=== PATIENT | female | born 1945 | race Caucasian/White ===

== ENCOUNTER 2021-03-21 13:19 | Inpatient (IN) | payer MEDICARE, OTHER, SELFPAY ==
[2021-03-21] VITALS (12 sets, daily range): BP systolic 121–143; BP diastolic 76–120; PULSE 68–147; RESP 12–18; TEMP 36.2–37.3; O2SAT 94–97
--- NOTE | ~2021-03-21 | CT_ITS ---
EXAMINATION: CTA brain carotid EXAM DATE: 03/21/2021 14:53 INDICATION: Left side weakness. TECHNIQUE: Spiral CTA of the carotid arteries was performed with intravenous injection 100 cc of Om nipaque 350. Axial, coronal, sagittal reformatted images reviewed. Additional reformatted images cre ated on dedicated 3-D workstation. NASCET comparable standard used to assess the degree of arterial stenosis. Spiral CT angiogram cerebral arteries performed with the same intravenous injection of con trast. Source images of the brain CTA transferred to dedicated workstation for 3-D rotational image c reation. Coronal, sagittal maximum intensity pixel images also reviewed. The dose-length product (D LP) for this examination was 1020.18 mGy-cm. The exposure was tailored according to patient size, a nd iterative reconstruction (ASIR) was used as additional dose reduction technique. Correlation is ma de to noncontrast head CT earlier same day. FINDINGS: Mild bilateral carotid bulb arterial sclerosis, bilateral carotid 0% stenosis. There is rig ht-sided posterior communicating artery dominant posterior cerebral artery. Mild bilateral carotid si phon arterial sclerosis without stenosis. There is no carotid or vertebral basilar arterial dissecti on or fibromuscular dysplasia. There are no cerebral artery aneurysms. There is symmetric cerebral ar last arborization. The sagittal, transverse and sigmoid sinuses enhance normally, no venous sinus thr ombosis. Internal cerebral veins also enhance normally. Incidental Findings: Bilateral cataract surgery. Sizable layering bilateral pleural effusions. IMPRESSION: 1. No acute carotid or intracranial findings. 2. Bilateral carotid bulb 0% stenosis. Reviewed, dictated and finalized at location B.
--- NOTE | ~2021-03-21 | CT_ITS ---
EXAMINATION: CT brain wo con DATE: 03/21/2021 14:00 INDICATION: Left-sided hemiparesis TECHNIQUE: Computed tomography (CT) of the head was performed without intravenous contrast. Sagittal and coronal reconstructions were performed. The mA was adjusted according to patient size. Iterative reconstruction technique was employed. The dose-length product was 605.33 mGy-cm. COMPARISON: head CT dated 06/21/2009 FINDINGS: No acute intracranial hemorrhage, acute infarction or abnormal extra axial fluid collection. There is minimal scattered white matter hypoattenuation consistent which is within normal limits for age, lik mary sequela of chronic small vessel ischemic disease. Ventricles are normal and symmetric. No mass/m ass effect. Changes of bilateral intraocular lens replacement. The orbits and mastoid air cells are n ormal. Mild mucoperiosteal thickening the right maxillary sinus. Intracranial calcified cerebral athe rosclerosis is noted. IMPRESSION: 1. Normal aging brain. No acute intracranial process. Reviewed, dictated and finalized at location A.
--- NOTE | ~2021-03-21 | XR_ITS ---
EXAMINATION: XR chest 1V portable EXAM DATE: 03/21/2021 14:08 INDICATION: Left hemiparesis. TECHNIQUE: Portable AP frontal chest x-ray was obtained. Comparison is made to prior examination from 11/06/2013. FINDINGS: Moderate left, small to moderate pleural effusions, adjacent multisegmental atelectasis. Th e cardiac silhouette is enlarged. There is indistinct reticulation with a bibasal predominance which may indicate pulmonary edema. Pneumonia also possible. No pneumothorax. The bones are osteopenic. Th ere are bony degenerative changes. There is aortic arteriosclerosis. Bilateral shoulder replacements. Vertebral plasties. IMPRESSION: 1. Moderate left and small to moderate right pleural effusions, adjacent atelectasis. 2. Findings consistent with CHF exacerbation. 3. Pneumonia not excludable. Reviewed, dictated and finalized at location B. IMPRESSION: 1. Moderate left and small to moderate right pleural effusions, adjacent atele ctasis. 2. Findings consistent with CHF exacerbation. 3. Pneumonia not excludable.
--- NOTE | ~2021-03-21 | CT_ITS ---
EXAMINATION: CT brain wo con INDICATION: Altered mental status COMPARISON: 03/21/2021 TECHNIQUE: Standard unenhanced head CT. The dose-length product (DLP) was 681.00 mGy-cm. The mA was a djusted according to patient size. Iterative reconstruction technique was employed. FINDINGS: There is no acute intraparenchymal hemorrhage. No evidence of mass lesion. No evidence of a cute infarction. There is mild periventricular and subcortical hypodensity probably related to small vessel ischemic disease. There is mild prominence of the sulci and ventricles related to cerebral atr ophy. Intracranial calcified cerebral atherosclerosis is noted. There are no extra-axial collections. There is no mass effect or midline shift. Changes in the globes are likely from ocular lens surgery. The visualized sinuses and mastoid air cells are well aerated. IMPRESSION: 1. No acute intracranial abnormality. 2. Age related findings. Reviewed, dictated and finalized at location A.
--- NOTE | ~2021-03-21 | US_ITS ---
EXAMINATION: US venous doppler [facility] DATE: 03/22/2021 11:30 INDICATION: Bilateral lower limb edema TECHNIQUE: Galvan scale images without and with compression and Doppler images of the bilateral lower e xtremity veins were obtained. COMPARISON: None FINDINGS: The right common femoral vein, profunda femoral vein, femoral vein, popliteal vein, peroneal trunk, p osterior tibial veins, and greater saphenous vein are patent. The left common femoral vein, profunda femoral vein, femoral vein, popliteal vein, peroneal trunk, po sterior tibial veins, and greater saphenous vein are patent. IMPRESSION: 1. Patent bilateral lower extremity veins. No evidence of deep venous thrombosis. Reviewed, dictated and finalized at location A. IMPRESSION: 1. Patent bilateral lower extremity veins. No evidence of deep venous thrombosi s.
--- NOTE | ~2021-03-21 | US_ITS ---
EXAMINATION: US renal BI DATE: 03/22/2021 11:30 INDICATION: Renal failure TECHNIQUE: Multiple grayscale and Doppler ultrasound images of the kidneys were obtained. COMPARISON: None. FINDINGS: The right kidney measures 9.2 x 4.7 x 4.2 cm and contains a 2.1 cm cyst. The left kidney me asures 9.5 x 4.8 x 4.5 cm. The kidneys demonstrate increased parenchymal echogenicity. There is no hy dronephrosis. The bladder is normal. IMPRESSION: 1. Medical renal disease. Reviewed, dictated and finalized at location A. IMPRESSION: 1. Medical renal disease.
--- NOTE | 2021-03-21 13:47 | ECG_ITS ---
Measurements Intervals [place] Rate: 138 P: UT: 0 QRS: -25 QRSD: 142 T: -7 QT: 325 QTc: 494 Interpretive Statements ATRIAL FIBRILLATION WITH RAPID VENTRICULAR RESPONSE RIGHT BUNDLE BRANCH BLOCK ABNORMAL ECG Electronically Signed On 03-21-2021 14:06:40 CDT by Devon Paiz D.O.
--- NOTE | 2021-03-21 14:00 | ED.WEAKNESS ---
HPI - Weakness General Chief complaint: Suspected CVA Stated complaint: fall - weakness Time Seen by Provider: 03/21/21 13:33 Source: patient Mode of arrival: EMS Limitations: no limitations History of Present Illness HPI Narrative: This is a 75 year old female with history of atrial fibrillation, hypertension who presents for evaluation of weakness. Patient states she has noticed bilateral leg swelling for 2 days and shortness of breath for 2 days. She also reports left side weakness that started around 1030-11 am. 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 Shortly afterwards she noticed weakness. She called EMS because prior to arrival she was so weak she slid out of her car. She denies history of CVA or similar weakness in the past. She denies headache, blurred vision or facial droop. She does report that she has not been taking most of her medication for several weeks. Her gas main fitter started on her on a blood thinner 3 weeks ago. She denies chest pain, cough or fever. MD Complaint: focal weakness Related Data Home Medications Medication Instructions Recorded Confirmed acetazolamide 250 mg DAILY 03/21/21 03/21/21 amlodipine 10 mg PO DAILY 03/21/21 03/21/21 aspirin 81 mg PO DAILY 03/21/21 03/21/21 cholecalciferol (vitamin D3) 125 mcg PO DAILY 03/21/21 03/21/21 desvenlafaxine succinate 100 mg PO DAILY 03/21/21 03/21/21 docusate sodium 100 mg PO PRN 03/21/21 03/21/21 duloxetine 60 mg PO DAILY 03/21/21 03/21/21 ergocalciferol (vitamin D2) 50,000 unit PO WEEKLY 03/21/21 03/21/21 fenofibrate nanocrystallized 145 mg PO EVERY OTHER DAY 03/21/21 03/21/21 folic acid-vit B6-vit B12 1 tablet PO DAILY 03/21/21 03/21/21 hydralazine 37.5 mg PO Q8H 03/21/21 03/21/21 hydrocodone-acetaminophen [[place]] 1 tablet PO Q8H PRN 03/21/21 03/21/21 tfncf-wu-8-ruw-qbf-dufxeli-ast 1 cap PO DAILY 03/21/21 03/21/21 [MegaRed [place]-3 [employer]] levothyroxine 25 mcg PO DAILY 03/21/21 03/21/21 lisinopril 40 mg BID 03/21/21 03/21/21 methotrexate sodium See Rx Instructions .ROUTE .COMPLEX 03/21/21 03/21/21 nortriptyline 10 mg PO TID 03/21/21 03/21/21 potassium chloride 10 meq PO DAILY 03/21/21 03/21/21 pregabalin 200 mg PO BID 03/21/21 03/21/21 rivaroxaban [Xarelto] 20 mg PO DAILY 03/21/21 03/21/21 triamterene-hydrochlorothiazid 1 cap PO DAILY 03/21/21 03/21/21 Allergies Allergy/AdvReac Type Severity Reaction Status Date / Time adhesive tape Allergy Mild Unknown Verified 03/21/21 14:59 topiramate Allergy Mild Unknown Verified 03/21/21 14:59 adhesive Allergy Unknown SKIN Verified 03/21/21 14:59 SLOUGHS OFF morphine Allergy Unknown Unknown Verified 03/21/21 14:59 scopolamine Allergy Unknown SKIN Verified 03/21/21 14:59 SLOUGH OFF FROM PATCH TAPES-- Allergy Severe SKIN Uncoded 03/21/21 14:59 SLOUGHING OFF TRANSDERMAL SCOPALOMINE Allergy Severe SKIN Uncoded 03/21/21 14:59 SLOUGH OFF FROM PATCH Review of Systems Review of Systems: All systems reviewed & are unremarkable except as noted in HPI and below PMFSH Past Medical History Medical History (Updated 03/21/21 @ 23:43 by Anastasiia Gardiner MD) Depression Dyslipidemia Hypertension Insulin dependent diabetes mellitus On insulin pump. Macular degeneration Paroxysmal atrial fibrillation Rheumatoid arthritis Surgical History Surgical History (Updated 03/21/21 @ 21:00 by Mera Richardson PA-C) History of appendectomy History of arthroscopy of both shoulders History of bilateral cataract extraction History of colonoscopy with polypectomy History of hysterectomy History of laparoscopic adjustable gastric banding History of orthopedic surgery Pins in feet and elbow. History of repair of hiatal hernia Family History Family History Grandparent Family history of malignant neoplasm of ovary Other Carcinoma of colon Cerebrovascular accident Diabetes frederic
[2021-03-21] MEDS: dilTIAZem HCl INJ 25 MG/5 ML VIAL 10 MG IV PUSH (14:10)
[2021-03-21 14:15] LABS: Glucose Point of Care 173 mg/dl (65-105)
[2021-03-21 14:27] LABS: Basophils Percent Auto 0.4 % (0.2-1.2); Eosinophils Absolute Auto 0.1 K/mm3 (0-0.3); Eosinophils Percent Auto 0.9 % (0-4.4); Hematocrit 35.1 % (37.0-47.0); Hemoglobin 10.9 g/dL (12.0-15.0); Immature Granulocyte Absolute 0.06 K/mm3 (0.00-0.031); Immature Granulocyte Percent A 0.6 % (0-0.5); Lymphocytes Absolute Auto 0.82 K/mm3 (0.9-3.2); Lymphocytes Percent Auto 7.6 % (18.3-44.2); Mean Corpuscular HGB Conc 31.1 g/dl (32-36); Mean Corpuscular Volume 87.1 fl (80-100); Mean Platelet Volume 9.9 fl (7.4-10.4); Monocytes Absolute Auto 0.8 K/mm3 (0.1-0.6); Neutrophils Percent Auto 83.5 % (45.5-73.1); Platelet Count Result 289 k/mm3 (150-375); Red Blood Count 4.03 M/mm3 (4.2-5.4); Red Cell Distribution Width 17.4 % (11.5-14.5); White Blood Count 10.8 K/mm3 (4.5-10.0)
[2021-03-21 14:32] LABS: Anion Gap 7 mmol/L (8-16); Blood Urea Nitrogen 41 mg/dL (7-17); Calcium 8.1 mg/dL (8.4-10.2); Carbon Dioxide 23 mmol/L (22-30); Chloride 100 mmol/L (98-107); Estimated CRCL calculation 38 ml/min; Estimated Glomerular Filt Rate 49; Glucose 172 mg/dL (65-110); Potassium 4.7 mmol/L (3.4-5.0); Sodium 130 mmol/L (137-145)
[2021-03-21 14:43] LABS: INR 1.1; Prothrombin Time 13.6 Seconds (11.1-14.7)
[2021-03-21 14:44] LABS: Partial Thromboplastin Time 29.6 SECONDS (22.3-36.8)
[2021-03-21 15:00] LABS: NT Pro B Type Natriuretic Pept 7350 pg/mL (5-100); Troponin I 0.036 ng/mL (0.000-0.034)
[2021-03-21] MEDS: FUROSEMIDE INJ 40 MG/4 ML VIAL IV PUSH (15:27)
[2021-03-21] MEDS: ASPIRIN 81 MG CHEWABLE TABLET 324 MG PO (16:45)
--- NOTE | 2021-03-21 17:28 | PC.NURSE ---
Increased Cardizem rate to [address] Gardiner
--- NOTE | 2021-03-21 18:38 | ADMGEN ---
This patient, Regine Mittal, was admitted to IMU Room 207-01 on 03-21-21 at 1810. Patient/family oriented to hospital policies and general routines including ID bracelet, bed and alarms, visiting hours, pain management, procedures, bathroom and other care routines, personal items, smoking policy, room service/diet, and visiting hours. Information on how to activate the Rapid Response Team has been discussed. Patient/Family are encouraged to report perceived risks to care and to ask questions if they do not understand what they are told or what they should do.
--- NOTE | 2021-03-21 20:00 | PM.IMHP ---
H&P: HPI History of Present Illness Date/Time: 03/21/21 20:00 Chief Complaint: Left-sided weakness. Narrative: This is a 75-year-old female with paroxysmal atrial fibrillation, insulin-dependent diabetes, hypertension, dyslipidemia, hypothyroidism, and rheumatoid arthritis who presented to the emergency department earlier today via EMS from [facility] for evaluation of left-sided weakness. She was in her usual state of health when she got up this morning and spent some time making a meatloaf before going to bean picker her birthday cake. All was well at that time however when she drove to [employer] to do some more shopping she was having difficulties pushing the brake pedal with her left foot, and felt weak. She then attempted to get out of the car but was unable to do so as she felt that she could not move her left leg as it was extremely weak. A woman in the [employer] [facility] tried to help her but unfortunately that just caused her to slide down onto the ground on her buttocks and she was unable to get up. She also had some mild weakness in her left arm. Brain CT showed no evidence of acute stroke and since arrival to the emergency department her symptoms have improved quite a bit. EKG showed atrial fibrillation with ventricular response for which she is currently on a Cardizem drip with some improvement in her rate. Interestingly she has no symptoms of the atrial fibrillation at this time, specifically denying feelings of racing heart, fluttering, or shortness of breath. On exam she was markedly edematous in the lower legs which she just noticed over the last couple of days. Currently she has no complaints and specifically denies syncope, near syncope, orthopnea, PND, chest pain, pleuritic pain, shortness of breath Review of Systems Review of Systems: 12 systems were reviewed with pertinent positives and negatives as per HPI. No fever, chills, or sweats. No recent cold or flu symptoms. No sick contacts. She denies cough and shortness of breath. Known exposure to those positive for COVID-19. Appetite has been okay. No nausea, vomiting, or diarrhea. No dysuria. No pleuritic pain. No history of venous thromboembolism. Her diabetes is well controlled on insulin pump but she does have issues with lows on occasion. No blurry vision, polydipsia, polyuria. Except as document, all other systems were reviewed and are negative. [facility] Past Medical History Medical History (Updated 03/21/21 @ 21:06 by Mera Richardson PA-C) Depression Dyslipidemia Hypertension Insulin dependent diabetes mellitus On insulin pump. Macular degeneration Paroxysmal atrial fibrillation Rheumatoid arthritis Surgical History Surgical History (Updated 03/21/21 @ 21:00 by Mera Richardson PA-C) History of appendectomy History of arthroscopy of both shoulders History of bilateral cataract extraction History of colonoscopy with polypectomy History of hysterectomy History of laparoscopic adjustable gastric banding History of orthopedic surgery Pins in feet and elbow. History of repair of hiatal hernia Family History Family History Grandparent Family history of malignant neoplasm of ovary Other Carcinoma of colon Cerebrovascular accident Diabetes mellitus Family history of arthritis Family history of gout Hypertension Social History Social History (Updated 03/21/21 @ 21:03 by Mera Richardson PA-C) Social History: The patient lives in [place] with her stepdaughter and son-in-law. Retired from doing secretarial work at numerous medical offices. She smoked a pack of cigarettes a day for 8 years and quit decades ago. She drinks perhaps 1 alcoholic regimen. No illicit substance use. She designates her stepdaughter, Snadhya Melara, as her surrogate decision-maker and she wishes to be a full code. Meds Home Medications and Allergies Home Medications Medication Instructio
[2021-03-21 20:23] LABS: Glucose Point of Care 92 mg/dl (65-105)
[2021-03-21 20:40] LABS: Glucose Point of Care 244 mg/dl (65-105)
[2021-03-21] MEDS: NORTRIPTYLINE HCL 10 MG CAPSULE 30 MG PO (22:55)
[2021-03-22] VITALS (19 sets, daily range): BP systolic 122–152; BP diastolic 75–104; PULSE 75–140; RESP 15–20; TEMP 35.8–36.4; O2SAT 94–100
[2021-03-22 05:05] LABS: Basophils Percent Auto 0.3 % (0.2-1.2); Eosinophils Absolute Auto 0.1 K/mm3 (0-0.3); Eosinophils Percent Auto 1.1 % (0-4.4); Hematocrit 33.4 % (37.0-47.0); Hemoglobin 10.4 g/dL (12.0-15.0); Immature Granulocyte Absolute 0.05 K/mm3 (0.00-0.031); Immature Granulocyte Percent A 0.5 % (0-0.5); Lymphocytes Absolute Auto 0.76 K/mm3 (0.9-3.2); Lymphocytes Percent Auto 7.9 % (18.3-44.2); Mean Corpuscular HGB Conc 31.1 g/dl (32-36); Mean Corpuscular Hemoglobin 26.8 pg (26-34); Mean Corpuscular Volume 86.1 fl (80-100); Mean Platelet Volume 10.4 fl (7.4-10.4); Monocytes Absolute Auto 0.6 K/mm3 (0.1-0.6); Monocytes Percent Auto 6.6 % (2.6-8.5); Neutrophils Percent Auto 83.6 % (45.5-73.1); Platelet Count Result 250 k/mm3 (150-375); Red Blood Count 3.88 M/mm3 (4.2-5.4); Red Cell Distribution Width 17.3 % (11.5-14.5); White Blood Count 9.6 K/mm3 (4.5-10.0)
[2021-03-22 05:14] LABS: Hemoglobin A1C 7.4 % (<5.7)
[2021-03-22 05:23] LABS: Alanine Aminotransferase 26 U/L (4-35); Albumin Level 3.3 g/dL (3.5-5.1); Alkaline Phosphatase 101 U/L (38-126); Anion Gap 7 mmol/L (8-16); Aspartate Amino Transferase 27 U/L (14-36); Bilirubin,Total 0.7 mg/dL (0.2-1.3); Blood Urea Nitrogen 40 mg/dL (7-17); Carbon Dioxide 23 mmol/L (22-30); Chloride 101 mmol/L (98-107); Cholesterol 97 mg/dL (0-200); Estimated CRCL calculation 41 ml/min; Estimated Glomerular Filt Rate 54; Glucose 125 mg/dL (65-110); HDL Direct 48 mg/dL; Magnesium 2.3 mg/dL (1.6-2.3); Potassium 4.4 mmol/L (3.4-5.0); Sodium 131 mmol/L (137-145); Triglycerides 68 mg/dL (<150)
[2021-03-22 05:34] LABS: LDL Cholesterol Direct 35 mg/dL
--- NOTE | 2021-03-22 06:00 | ECHO_ITS ---
Patient Info Name: Regine Mittal Age: 76 years : 1945 Gender: Female Ht: 62 in Wt: 166 lbs BSA: 1.84 m2 HR: 97 bpm BP: 152 / 100 mmHg Heart Rhythm: Atrial Fibrillation Technical Quality: Good Exam Date: 03/22/2021 8:30 AM Exam Location: [facility] Patient Status: Inpatient Admit Date: 03/21/2021 Staff Ordering Physician: Anastasiia Gardiner MD Curing Oven Attendant: Carol Joel [facility] Attending Provider: Jorje Webber MD Referring Physician: Abdifatah POTTS; Exam Type: CA echo doppler color flow Study Info Complete two-dimensional, color flow and Doppler transthoracic echocardiogram is performed. Summary 1. Complete two-dimensional, color flow and Doppler transthoracic echocardiogram is performed. 2. There is moderate concentric increased left ventricular wall thickness. 3. Left ventricular systolic function is normal, estimated at 50-55%. 4. Left atrial chamber dimension is moderately enlarged. 5. There is mild aortic valve sclerosis. 6. There is mild mitral valve regurgitation. 7. There is mild tricuspid valve regurgitation. Left Ventricle Left ventricular chamber dimension is normal. Left ventricular systolic function is normal, estimated at 50-55%. There is moderate concentric increased left ventricular wall thickness. The left ventricular diastolic function is indeterminate. Right Ventricle Right ventricular chamber dimension is normal. Left Atria Left atrial chamber dimension is moderately enlarged. Right Atria Right atrial chamber dimension is mildly enlarged. Aortic Valve The aortic valve is trileaflet. There is mild aortic valve sclerosis. Pulmonic Valve The pulmonic valve is not well visualized. Mitral Valve The mitral valve has normal leaflets. There is mild mitral valve regurgitation. Tricuspid Valve The tricuspid valve leaflets are normal. There is mild tricuspid valve regurgitation. Pericardium/Pleural The pericardium appears normal. Aorta The aortic root size at the sinus of Valsalva is normal. Left Ventricular Outflow Tract Name Value Normal LVOT 2D LVOT Diameter 2.1 cm LVOT Doppler LVOT Peak Gradient 5 mmHg LVOT Mean Gradient 3 mmHg LVOT VTI 20 cm LVOT VTI/AV VTI Ratio 0.3 LVOT Stroke Volume 68 ml LVOT CO 5.0 l/min LVOT CI 2.7 l/min/m2 Pulmonic Valve Name Value Normal PV Doppler PV Peak Gradient 4 mmHg Tricuspid Valve Name Value Normal TV Regurgitation Doppler
[2021-03-22] MEDS: LEVOTHYROXINE SODIUM 25 MCG TABLET PO (06:30)
[2021-03-22 07:58] LABS: Free T4 Free Thyroxine Reflex 1.29 ng/dL (0.78-2.19)
[2021-03-22] MEDS: hydrALAZINE 12.5 MG TABLET PO ×2 (08:18→17:22)
[2021-03-22] MEDS: hydrALAZINE HCL 25 MG TABLET PO ×2 (08:18→17:22)
[2021-03-22] MEDS: NORTRIPTYLINE HCL 10 MG CAPSULE 20 MG PO ×2 (08:20→12:48)
[2021-03-22] MEDS: CHOLECALCIFEROL 1,000 UNITS TABLET 5000 UNITS PO (08:21)
[2021-03-22] MEDS: ASPIRIN 81 MG ENTERIC TABLET PO (08:21)
[2021-03-22] MEDS: amLODIPine BESYLATE 5 MG TABLET 10 MG PO (08:21)
[2021-03-22] MEDS: CYANOCOBALAMIN 500 MCG TABLET 2500 MCG PO (08:22)
[2021-03-22] MEDS: FENOFIBRATE NANOCRYSTALLIZED 145 MG TABLET PO (08:22)
[2021-03-22] MEDS: DULoxetine HCL 60 MG CAPSULE.DR PO (08:22)
[2021-03-22] MEDS: FUROSEMIDE INJ 40 MG/4 ML VIAL IV PUSH ×2 (08:23→21:16)
[2021-03-22] MEDS: PYRIDOXINE HCL 25 MG TABLET PO (08:23)
[2021-03-22] MEDS: FOLIC ACID 1 MG TABLET PO (08:23)
[2021-03-22] MEDS: PREGABALIN (*CRX) 50 MG CAPSULE 200 MG PO ×2 (08:27→17:22)
[2021-03-22 09:28] LABS: Glucose Point of Care 135 mg/dl (65-105)
[2021-03-22 10:00] LABS: Total Triiodothyronine (T3) 0.68 NG/ML (0.97-1.69)
--- NOTE | 2021-03-22 10:25 | PM.CNCAR ---
Assessment and Plan Additional Plan This is a 76-year-old lady with a history of paroxysmal atrial fibrillation who unfortunately discontinued all of her medications recently and has presented with a CVA presumably a cardioembolic events and she is atrial fibrillation. Diltiazem intravenously is seen doing a reasonable job of providing heart rate control. With a fresh CVA I would put a hold on the anticoagulation at this time especially since she was not anticoagulated because of medical noncompliance coming into the hospital. I will transition her to some oral diltiazem InStent wean off the IV over the course of today and this afternoon. If she is hemodynamically stable in rate controlled on oral diltiazem and be discharged on the diltiazem and follow up with her client development manager as an outpatient. Echocardiogram has been done this morning and has yet to be interpreted. It is unfortunate that she appears to have suffered a cardioembolic event which likely could have been prevented if she was compliant with her medication Dann Cassidy MD [facility] History of Present Illness History of Present Illness Consult date/time: 03/22/21 10:25 Consult reason: atrial fibrillation Reason For Visit: acute CVA/CHF/atrial fibrillation with RVR Narrative: This is a 76-year-old lady of seeing at the request of the hospitalist today to assist with the management of atrial fibrillation. The patient has not been seen by me in the past she apparently has established relationship with a client development manager in [place] who does not practice at [facility]. She was brought here because of the onset of left arm and left leg weakness that occurred while she was apparently shopping at a local [employer]. She was apparently in the parking lot and noticed symptoms while she was trying to operate her car. She was brought to the emergency room and felt to have had a CVA. Apparently she has a history of paroxysmal atrial fibrillation and for this was taking Xarelto 20 mg daily. Medical regimen did not include any rate control or antiarrhythmic medications. She states she does not have atrial fibrillation recurrences very often. Her client development manager has told her that she has a mildly leaking mitral valve. Patient states that she got sick of taking her medications and stopped all of it a couple of weeks ago. Her left hemiplegia is much better than it was yesterday she was unable to move her left leg at all she is now moving it abducting at and extending it and moving her toes to command she states that is a bit clumsy but much better than it was yesterday. She was placed of course on intravenous diltiazem as her heart rate was 130-140 in the emergency room it is better at this time. She has no other complaints and otherwise feels relatively well this morning. Despite the fact that she stopped her medication which presumably is the reason for her CVA her Xarelto is reordered at this time on her active orders on the chart. Neurology consult I believe has been requested but is pending. Review of Systems Constitutional: Constitutional: Reports fatigue and Reports lethargy Eyes: Eyes: Reports no additional eye complaints ENT: Reports system reviewed and no additional complaints, except as documented Cardiovascular: Cardiovascular: Reports no additional cardiovascular complaints Respiratory: Respiratory: Reports no additional respiratory complaints Gastrointestinal: Gastrointestinal: Reports no additional gastrointestinal complaints Musculoskeletal: Musculoskeletal: Reports arthralgias Integumentary/Breasts: Skin/Breast: Reports system reviewed and no additional complaints, except as docu Neurologic: Reports as per HPI Endocrine: Endocrine: Reports no additional endocrine complaints Hematologic/Lymphatic: Hematologic/Lymphatic: Reports no additional hematologic/lymphatic complaints Allergic/Immunologic: Allergic/Immunologic: Reports no additional allergic/immunologic compla
[2021-03-22 13:04] LABS: Glucose Point of Care 194 mg/dl (65-105)
--- NOTE | 2021-03-22 14:18 | WPDNEURCNPN ---
Assessment and Plan Additional Plan considering the cardiac she is a likely candidate to have TIA versus stroke MRI will be obtained and further adjustment will be made accordingly Consult date: 03/24/21 Time Seen: 14:18 HPI: Regine Mittal is a 76 year old female admitted to the hospital for the complaints of left-sided weakness in addition to the ongoing history of 1. Paroxysmal atrial fibrillation 2. Insulin-dependent diabetes mellitus 3. Hypertension 4. Hypothyroidism 5. Rheumatoid arthritis. She presented to the emergency department via EMS from [place] for evaluation of left-sided weakness. Reportedly she was in her usual state of health when she got up in the morning and spent some time making a meat low before going to pickling grader her birthday cake all was well at that time however when she drove to [place] to do some more shopping she was having difficulties pushing the brake pedal with the left foot and felt weak when she attempted to get out of the car but was unable to do so as she felt that she could not move her left leg he was extremely weak a woman in the [employer] try to help her but unfortunately that resulted in her sliding down onto the ground on her buttocks then she was unable to get up she was noted to have mild weakness in her left arm initial evaluation included a CT scan of the brain which was negative for bleed EKG documented atrial fibrillation with ventricular response for which she was started on Cardizem drip and which resulted in improvement in her heart rate was noted to be markedly edematous in the lower extremities she mention over the last couple of days, she does have ongoing history of depression, macular degeneration in addition to all the problems as mentioned above , is retired from secretarial work she smokes a pack of cigarette per day for 8 years but quit decades ago no illicit substance use and medications included rivaroxaban 20 mg daily along with duloxetine 60 mg daily and nortriptyline 10 mg 3 times a day and Lyrica 200 mg twice a day Review of Systems Review of Systems: All systems reviewed & are unremarkable except as noted in HPI and below PMFSH Past Medical History Medical History Depression Dyslipidemia Hypertension Insulin dependent diabetes mellitus On insulin pump. Macular degeneration Paroxysmal atrial fibrillation Rheumatoid arthritis Surgical History Surgical History History of appendectomy History of arthroscopy of both shoulders History of bilateral cataract extraction History of colonoscopy with polypectomy History of hysterectomy History of laparoscopic adjustable gastric banding History of orthopedic surgery Pins in feet and elbow. History of repair of hiatal hernia Family History Family History Grandparent Family history of malignant neoplasm of ovary Other Carcinoma of colon Cerebrovascular accident Diabetes mellitus Family history of arthritis Family history of gout Hypertension Social History Social History Social History: The patient lives in [place] with her stepdaughter and son-in-law. Retired from doing secretarial work at numerous medical offices. She smoked a pack of cigarettes a day for 8 years and quit decades ago. She drinks perhaps 1 alcoholic regimen. No illicit substance use. She designates her stepdaughter, Sandhya Melara, as her surrogate decision-maker and she wishes to be a full code. Meds Home Medications and Allergies Home Medications Medication Instructions Recorded Confirmed Type acetazolamide 250 mg DAILY 03/21/21 03/21/21 History amlodipine 10 mg PO DAILY 03/21/21 03/21/21 History aspirin 81 mg PO DAILY 03/21/21 03/21/21 History cholecalciferol (vitamin D3) 125 mcg PO DAILY 03/21/21 03/21/21 History desdallin
[2021-03-22 17:06] LABS: Glucose Point of Care 187 mg/dl (65-105)
--- NOTE | 2021-03-22 17:07 | PM.IMPN ---
Progress Note: A&P Assessment and Plan (1) Atrial fibrillation with rapid ventricular response: Code(s): I48.91 - Unspecified atrial fibrillation Status: Acute Assessment and Plan: Patient is unaware of her atrial fibrillation. She has been started on a Cardizem drip witha good control of her rate. Continue rivaroxaban which was recently started by her industrial refrigeration mechanic Dr. Martinez. (2) Left-sided weakness: Code(s): R53.1 - Weakness Status: Acute Assessment and Plan: Left lower extremity weakness. Concerns for TIA versus CVA given atrial fibrillation. CTA of the head neck showed 0% stenosis of the carotid bulbs. Brain MRI is scheduled. Continue baby aspirin. Check lipids in a.m. (3) Hypertension: Code(s): I10 - Essential (primary) hypertension Status: Chronic Assessment and Plan: Blood pressures were reviewed and they have been reasonable with isolated diastolic elevation. Continue antihypertensives and monitor closely for now. (4) Dyslipidemia: Code(s): E78.5 - Hyperlipidemia, unspecified Status: Acute Assessment and Plan: Continue fenofibrate. LDL at goal. (5) Insulin dependent diabetes mellitus: Status: Acute Assessment and Plan: Patient may use her insulin pump. Check hemoglobin A1c. Initiate sliding scale insulin, Accu-Cheks, and hypoglycemic protocol. Accuchecks have been in the 92-244 range, no reported hypoglycemia. (6) Renal failure: Code(s): N19 - Unspecified kidney failure Status: Acute Assessment and Plan: Resolving acute non oliguric kidney injury. BUN and creatinine are improving toward her baseline. There is likely an element of cardiorenal syndrome. Renal ultrasound suggest medical renal disease. MOnitor BUN and creatinine. (7) Heart failure: Code(s): I50.9 - Heart failure, unspecified Status: Acute Assessment and Plan: Patient has findings suggestive of congestive heart failure with pulmonary effusions, elevated BNP, and lower extremity edema. May very well be high output failure from atrial fibrillation/rapid ventricular response. Continue cautious diuresis with close monitoring of volume status and renal function. Subjective Date/time seen: 03/22/21 17:07 This is a 75-year-old female with paroxysmal atrial fibrillation, insulin-dependent diabetes, hypertension, dyslipidemia, hypothyroidism, and rheumatoid arthritis who presented to the emergency department earlier today via EMS from [facility] parking lot for evaluation of left-sided weakness. . She also had some mild weakness in her left arm. Brain CT showed no evidence of acute stroke and since arrival to the emergency department her symptoms have improved quite a bit. EKG showed atrial fibrillation with ventricular response for which she was placed on a Cardizem drip with some improvement in her rate. Review of Systems Review of Systems: All systems reviewed & are unremarkable except as noted in HPI and below Constitutional: Constitutional: Reports no additional constitutional complaints and Reports weakness Cardiovascular: Cardiovascular: Reports no additional cardiovascular complaints and Denies chest pain Respiratory: Respiratory: Reports no additional respiratory complaints and Denies dyspnea Gastrointestinal: Gastrointestinal: Reports no additional gastrointestinal complaints, Denies abdominal pain, Denies diarrhea and Denies vomiting Genitourinary: Genitourinary: Reports no additional female genitourinary complaints Integumentary/Breasts: Skin/Breast: Reports system reviewed and no additional complaints, except as docu Neurologic: Comments: Patient reports persistent left lower extremity weakness. Psychiatric: Psychiatric: Reports no additional psychiatric complaints, Denies anxiety and Denies depression Exam Narrative: General: Well-developed female sitting up in bed no distress. Weigh
[2021-03-22 20:53] LABS: Glucose Point of Care 200 mg/dl (65-105)
--- NOTE | 2021-03-22 21:00 | PC.NURSE ---
2100- Patient difficult to arouse. Asked patient if she would manage the beeping on her insulin pump. The patient would wake up, say yes, then fall back asleep. The patient was informed if she wouldn't manage the pump it would need to be removed. Blood sugar 200, vitals signs obtained. MD Ennis called. Notified of symptoms. Orders to remove insulin pump and put patient on novolog sliding scale with meals. Labs also would be obtained on patient.
[2021-03-22 21:26] LABS: Alveolar/Arterial O2 Gradient 38.4 mmHg; Base Excess ABG 1.4 mEq/l (+/-2.0); Carboxyhemoglobin 0.1 % THb (0-2.0); Fractional Inspired Oxygen 21 %; Methemoglobin ABG 0.3 %THb (0-1.5); Oxygen Content ABG 13.7 %vol (16.0-22.0); Oxygen Saturation ABG 94.7 % (95.0-100.0); Oxyhemoglobin 91.8 % THb (90.0-100.0); PCO2 ABG 35.8 mmHg (35.0-45.0); PO2 ABG 68.5 mmHg (80.0-100.0); PO2 FiO2 Ratio Arterial Blood 3.26 %; Reduced Hemoglobin 7.8 %THb (0-5.0); Site Drawn LEFT RADIAL; Total Hemoglobin 10.6 g/dL (12.0-18.0); pH ABG 7.462 (7.350-7.450)
[2021-03-22 21:27] LABS: Device ROOM AIR; Modified Allen's Test Pass
[2021-03-22 21:45] LABS: Hematocrit 31.9 % (37.0-47.0); Hemoglobin 10.2 g/dL (12.0-15.0); Mean Corpuscular Hemoglobin 27.1 pg (26-34); Mean Corpuscular Volume 84.8 fl (80-100); Mean Platelet Volume 9.6 fl (7.4-10.4); Platelet Count Result 260 k/mm3 (150-375); Red Blood Count 3.76 M/mm3 (4.2-5.4); Red Cell Distribution Width 17.2 % (11.5-14.5); White Blood Count 9.5 K/mm3 (4.5-10.0)
[2021-03-22 21:56] LABS: Ammonia < 9 umol/L (9-30)
[2021-03-22 21:57] LABS: Anion Gap 6 mmol/L (8-16); Blood Urea Nitrogen 35 mg/dL (7-17); Calcium 8.1 mg/dL (8.4-10.2); Carbon Dioxide 25 mmol/L (22-30); Chloride 97 mmol/L (98-107); Estimated CRCL calculation 38 ml/min; Estimated Glomerular Filt Rate 48; Glucose 182 mg/dL (65-110); Phosphorus 5.1 mg/dL (2.5-4.5); Potassium 4.3 mmol/L (3.4-5.0); Sodium 128 mmol/L (137-145)
[2021-03-22 23:16] LABS: Glucose Point of Care 225 mg/dl (65-105)
--- NOTE | 2021-03-22 23:37 | PCRCNOTE ---
apnea link ordered for 03/22 was cancelled. nurse was concerned about pt's altered mental status.
[2021-03-23] VITALS (16 sets, daily range): BP systolic 102–154; BP diastolic 62–106; PULSE 62–127; RESP 18–20; TEMP 36.1–36.9; O2SAT 91–97
[2021-03-23] MEDS: LEVOTHYROXINE SODIUM 25 MCG TABLET PO (06:01)
[2021-03-23] MEDS: CYANOCOBALAMIN 500 MCG TABLET 2500 MCG PO (08:28)
[2021-03-23] MEDS: NORTRIPTYLINE HCL 10 MG CAPSULE 20 MG PO ×2 (08:28→13:45)
[2021-03-23] MEDS: hydrALAZINE 12.5 MG TABLET PO ×2 (08:29→17:16)
[2021-03-23] MEDS: PYRIDOXINE HCL 25 MG TABLET PO (08:29)
[2021-03-23] MEDS: hydrALAZINE HCL 25 MG TABLET PO ×2 (08:29→17:16)
[2021-03-23] MEDS: ASPIRIN 81 MG ENTERIC TABLET PO (08:29)
[2021-03-23] MEDS: amLODIPine BESYLATE 5 MG TABLET 10 MG PO (08:29)
[2021-03-23] MEDS: FOLIC ACID 1 MG TABLET PO (08:30)
[2021-03-23] MEDS: CHOLECALCIFEROL 1,000 UNITS TABLET 5000 UNITS PO (08:30)
[2021-03-23] MEDS: DULoxetine HCL 60 MG CAPSULE.DR PO (08:30)
[2021-03-23] MEDS: FUROSEMIDE INJ 40 MG/4 ML VIAL IV PUSH ×2 (08:31→21:28)
[2021-03-23] MEDS: PREGABALIN (*CRX) 50 MG CAPSULE 200 MG PO ×2 (08:34→17:17)
[2021-03-23] MEDS: FENOFIBRATE,MICRONIZED 48 MG TABLET PO (08:44)
[2021-03-23] MEDS: INSULIN ASPART (*BKC) 100 UNITS/ML SUB-Q ×3 (08:47→17:11)
[2021-03-23 09:44] LABS: Glucose Point of Care 337 mg/dl (65-105)
--- NOTE | 2021-03-23 09:54 | PM.PNCARD ---
Progress Note: A&P Additional Plan 76-year-old lady with: Chronic atrial fibrillation providing heart rate control with diltiazem. I will advance the dosage to 360 mg daily. I will also stop her amlodipine so she is not on 2 calcium channel blockers simultaneously. Neurology consult note was reviewed. Plans to do an MRI cannot be carried out because she has a stimulator device of some sort in place that is for urinary incontinence and is not MRI compatible. Will defer decision regarding resumption of anticoagulation to Neurology consult in. At this time I discontinued her Xarelto because she was not taking it prior to admission and we would wish to avoid hemorrhagic transformation of her CVA Dann Cassidy MD [facility] Subjective Date/time seen: Date of service: 03/23/21 09:54 Interval history: Follow-up visit in this 76-year-old woman with: Chronic atrial fibrillation unfortunately with apparent cardioembolic stroke because of noncompliance with medication. Patient discontinued all of her medication including her anticoagulation several weeks ago. She is asymptomatic this morning. I have her on oral diltiazem heart rate at times is in the low 1 100s at times up to about 135. Exam Const: General: comfortable and no acute distress HENMT: Mouth: Yes moist mucous membranes Eyes: Sclera: sclerae normal Pupils: Equal, round and reactive pupils present Neck: Neck: supple and no JVD Resp: Effort & Inspection: normal respiratory effort Auscultation: clear to auscultation bilaterally Cardio: Rhythm: abnormal rhythm irregularly irregular Other: Holosystolic apical murmur audible GI: GI Palp: Yes Soft to palpation Auscultation: normal bowel sounds Neuro: Cognition (Neuro): normal cognition Extrem: General: normal to inspection Objective Data Vital Signs Vital Signs: Vital Signs - 24 hr 03/22/21 10:00 03/22/21 12:00 03/22/21 13:20 Temperature 35.9 C L Pulse Rate 108 H 112 H 140 H Respiratory Rate 20 Blood Pressure 123/86 Pulse Oximetry 96 03/22/21 14:00 03/22/21 16:00 03/22/21 17:14 Temperature 35.8 C L Pulse Rate 96 80 88 Respiratory Rate 20 Blood Pressure 127/96 H Pulse Oximetry 99 03/22/21 18:00 03/22/21 20:00 03/22/21 22:00 Temperature 36.1 C L Pulse Rate 75 97 113 H Respiratory Rate 16 Blood Pressure 122/90 Pulse Oximetry 98 03/22/21 22:39 03/22/21 23:06 03/22/21 23:32 Temperature 36.4 C Pulse Rate 83 109 H Respiratory Rate 20 16 Blood Pressure 133/75 Pulse Oximetry 94 96 100 03/23/21 00:00 03/23/21 02:00 03/23/21 04:00 Temperature 36.1 C L Pulse Rate 103 H 90 108 H Respiratory Rate Blood Pressure 154/85 H Pulse Oximetry 97 03/23/21 06:00 03/23/21 08:00 Temperature 36.4 C L Pulse Rate 123 H 107 H Respiratory Rate 18 Blood Pressure 130/91 H Pulse Oximetry 97 Intake/Output Intake/Output: Intake & Output 03/20/21 03/21/21 03/22/21 03/23/21 23:59 23:59 23:59 23:59 Intake Total 1440 600 Output Total 400 1950 2500 Balance -400 510 -1900 Meds/Results Medications: Active Medications Generic Name Dose Route Start Last Admin Trade Name Freq PRN Reason Stop Dose Admin Hydrocodone Bitart/Acetaminophen 1 tab 03/21/21 21:27 Hydrocodone/Acetaminophen (*Crx) 10-325 Mg Tablet PO Q8H PRN Pain Rated 4-6 Aspirin 81 mg 03/22/21 09:00 03/23/21 08:29 Aspirin 81 Mg Enteric Tablet PO 81 mg QAM TERESA Administration Cyanocobalamin 2,500 mcg 03/22/21 09:00 03/23/21 08:28 Cyanocobalamin 500 Mcg Tablet PO 04/21/21 08:59 2,500 mcg DAILY TERESA Administration Dextrose 12.5 gm 03/21/21 21:24 Dextrose 50% 25 Gm/50 Ml Syringe IV PUSH PRN PRN Hypoglycemia Protocol Diltiazem HCl 360 mg 03/24/21 09:00 Diltiazem Hcl Cd 180 Mg Cap.Er.24h PO QAM TERESA Docusate Sodium 100 mg 03/21/21 21:51 Docusate Sodium 100 Mg Capsule PO DAILY PRN Constipation Du
--- NOTE | 2021-03-23 12:00 | PM.IMPN ---
Progress Note: A&P Assessment and Plan (1) Hyponatremia syndrome: Code(s): E87.1 - Hypo-osmolality and hyponatremia Status: Acute Assessment and Plan: Hyponatremia has been present since admission. Likely side effect of thiazide diuretic and SSRI. There may be an element of ADH responsiveness due to appropriate ADH release in the setting of afib with RVR. TSH and cortisol within normal limits. Serum Na improving to 127 today. Continue water restriction 1 L per day, salt tablets. We will avoid thiazides as an outpatient. Recheck serum Na tomorrow. (2) CHF (congestive heart failure): Code(s): I50.9 - Heart failure, unspecified Status: Acute Assessment and Plan: Acute on chronic diastolic heart failure with preserved ejection fraction 50-55%. currently on IV lasix. She is diuresing well. No congestive symptoms. (3) Acute CVA (cerebrovascular accident): Code(s): I63.9 - Cerebral infarction, unspecified Status: Acute (4) Left-sided weakness: Code(s): R53.1 - Weakness Status: Acute Assessment and Plan: Improving with daily exercise. Likely secondary to acute CVA in the setting of thromboembolic event due to atrial fibrillation in a patient non compliant with anticoagulation regimen. Head MRI is contraindicated. Repeat CT brain is unrevealing. Resume rivaroxaban today after discussion with neurology (5) Hypertension: Code(s): I10 - Essential (primary) hypertension Status: Chronic Assessment and Plan: Blood pressures were reviewed and they have been reasonable with isolated diastolic elevation. Continue antihypertensives and monitor closely for now. Continue metoprolol for rate control. due to mild elevation of creatinine, home DUNIA and diuretics have been on hold. (6) Insulin dependent diabetes mellitus: Status: Acute Assessment and Plan: Patient has an insulin pump. follow up with conservation educator for possible dysfunction. She has been experiencing hyperglycemia episodes, most recent above 400 on 03/26/2021. Patient on insulin sliding scale. Blood sugar is better this morning at 193. Continue monitoring. (7) Atrial fibrillation with rapid ventricular response: Code(s): I48.91 - Unspecified atrial fibrillation Status: Acute Assessment and Plan: rate controlled with cardizem and metoprolol Subjective Date/time seen: 03/27/2021 09:45 Interval history: S: Patient was examined at the bedside. She reports jerky movements of her hands. Review of Systems Review of Systems: All systems reviewed & are unremarkable except as noted in HPI and below Constitutional: Constitutional: Reports no additional constitutional complaints, Reports fatigue and Reports weakness Cardiovascular: Cardiovascular: Reports no additional cardiovascular complaints, Denies chest pain and Denies dyspnea Respiratory: Respiratory: Reports no additional respiratory complaints and Denies dyspnea Gastrointestinal: Gastrointestinal: Reports no additional gastrointestinal complaints, Denies abdominal pain, Denies diarrhea and Denies vomiting Genitourinary: Genitourinary: Reports no additional female genitourinary complaints Musculoskeletal: Musculoskeletal: Denies numbness Integumentary/Breasts: Skin/Breast: Reports system reviewed and no additional complaints, except as docu Neurologic: Denies Abnormal speech present, Denies confusion, Denies numbness and Reports weakness Psychiatric: Psychiatric: Reports no additional psychiatric complaints, Denies anxiety, Denies confusion and Denies depression Endocrine: Endocrine: Reports fatigue Exam Narrative: General: Well-developed female sitting up in bed no distress. Weight: 78.85= kg. BMI: 31 HEENT: Wearing corrective lenses. Sclerae anicteric. Oral mucosa moist. Oropharynx clear. Neck: Supple. No carotid bruits. No JVD Respiratory: Diminished lung sounds at the bases otherwise clear to aus
[2021-03-23 13:52] LABS: Glucose Point of Care 443 mg/dl (65-105)
--- NOTE | 2021-03-23 15:15 | PM.IMPN ---
Progress Note: A&P Assessment and Plan (1) Atrial fibrillation with rapid ventricular response: Code(s): I48.91 - Unspecified atrial fibrillation Status: Acute Assessment and Plan: Patient heart rate was as fast was 130s. cardizem increased to 37.5 mg PO BID. (2) Left-sided weakness: Code(s): R53.1 - Weakness Status: Acute Assessment and Plan: Improving with daily exercise. Likely secondary to acute CVA in the setting of thromboembolic event due to atrial fibrillation in a patient non compliant with anticoagulation regimen. Head MRI is contraindicated. Repeat CT brain is unrevealing. Resume rivaroxaban when cleared with neurology-with 2 negative scans should be ok, without risk. (3) Hypertension: Code(s): I10 - Essential (primary) hypertension Status: Chronic Assessment and Plan: Blood pressures were reviewed and they have been reasonable with isolated diastolic elevation. Continue antihypertensives and monitor closely for now. Stopped amlodipine per cardiology. (4) Dyslipidemia: Code(s): E78.5 - Hyperlipidemia, unspecified Status: Acute Assessment and Plan: Continue fenofibrate. LDL at goal. (5) Insulin dependent diabetes mellitus: Status: Acute Assessment and Plan: Patient on her insulin pump. Check hemoglobin A1c. Initiate sliding scale insulin, Accu-Cheks, and hypoglycemic protocol. Accuchecks have been over the 400 range today. We are consulting certified diabetes educator. We gave correction dose insulin 5 units. (6) Renal failure: Code(s): N19 - Unspecified kidney failure Status: Acute Assessment and Plan: Resolving acute non oliguric kidney injury. BUN and creatinine are improving toward her baseline. There is likely an element of cardiorenal syndrome. Renal ultrasound suggest medical renal disease. MOnitor BUN and creatinine. (7) Heart failure: Code(s): I50.9 - Heart failure, unspecified Status: Acute Assessment and Plan: Patient has findings suggestive of congestive heart failure with pulmonary effusions, elevated BNP, and lower extremity edema. May very well be high output failure from atrial fibrillation/rapid ventricular response. Continue cautious diuresis with close monitoring of volume status and renal function. Subjective Date/time seen: 03/23/21 15:15 This is a 75-year-old female with paroxysmal atrial fibrillation, insulin-dependent diabetes, hypertension, dyslipidemia, hypothyroidism, and rheumatoid arthritis who presented to the emergency department on 03/21/2021 via EMS from [facility] parking lot for evaluation of left-sided weakness. She also had some mild weakness in her left arm. Brain CT showed no evidence of acute stroke and since arrival to the emergency department her symptoms have improved quite a bit. EKG showed atrial fibrillation with ventricular response for which she was placed on a Cardizem drip with some improvement in her heart rate. She waas evaluated by cardiology and cardizem oral dose was uptitrated. She was scheduled for a MRI which is contraindicated due to her bladder pacemaker. A repeat brain CT was unremarkable. PAtient now working with PT and has noticed some improvement of her left sided weakness. Review of Systems Review of Systems: All systems reviewed & are unremarkable except as noted in HPI and below Constitutional: Constitutional: Reports no additional constitutional complaints and Reports weakness Cardiovascular: Cardiovascular: Reports no additional cardiovascular complaints, Denies chest pain and Denies dyspnea Respiratory: Respiratory: Reports no additional respiratory complaints and Denies dyspnea Gastrointestinal: Gastrointestinal: Reports no additional gastrointestinal complaints, Denies abdominal pain, Denies diarrhea and Denies vomiting Genitourinary: Genitourinary: Reports no additional female genitourinary complaints Integumentary/B
[2021-03-23 16:47] LABS: Glucose Point of Care 340 mg/dl (65-105)
[2021-03-23 19:49] LABS: Glucose Point of Care 265 mg/dl (65-105)
[2021-03-23] MEDS: NORTRIPTYLINE HCL 10 MG CAPSULE 30 MG PO (21:28)
--- NOTE | 2021-03-23 22:55 | PCRCNOTE ---
Apnea link started, pt room air.
[2021-03-24] VITALS (16 sets, daily range): BP systolic 89–122; BP diastolic 40–82; PULSE 70–130; RESP 18–22; TEMP 36–37.2; O2SAT 96–100
[2021-03-24 06:02] LABS: Basophils Percent Auto 0.2 % (0.2-1.2); Eosinophils Absolute Auto 0.2 K/mm3 (0-0.3); Eosinophils Percent Auto 1.3 % (0-4.4); Hematocrit 36.5 % (37.0-47.0); Hemoglobin 11.5 g/dL (12.0-15.0); Immature Granulocyte Absolute 0.06 K/mm3 (0.00-0.031); Immature Granulocyte Percent A 0.5 % (0-0.5); Lymphocytes Absolute Auto 1.08 K/mm3 (0.9-3.2); Lymphocytes Percent Auto 9.1 % (18.3-44.2); Mean Corpuscular HGB Conc 31.5 g/dl (32-36); Mean Corpuscular Hemoglobin 26.2 pg (26-34); Mean Corpuscular Volume 83.1 fl (80-100); Mean Platelet Volume 9.4 fl (7.4-10.4); Monocytes Absolute Auto 0.8 K/mm3 (0.1-0.6); Monocytes Percent Auto 6.4 % (2.6-8.5); Neutrophils Absolute Auto 9.8 K/mm3 (1.3-6.7); Neutrophils Percent Auto 82.5 % (45.5-73.1); Platelet Count Result 324 k/mm3 (150-375); Red Blood Count 4.39 M/mm3 (4.2-5.4); White Blood Count 11.8 K/mm3 (4.5-10.0)
[2021-03-24 06:14] LABS: Anion Gap 8 mmol/L (8-16); Blood Urea Nitrogen 43 mg/dL (7-17); Calcium 8.5 mg/dL (8.4-10.2); Carbon Dioxide 28 mmol/L (22-30); Chloride 90 mmol/L (98-107); Estimated CRCL calculation 33 ml/min; Estimated Glomerular Filt Rate 40; Glucose 61 mg/dL (65-110); Potassium 4.1 mmol/L (3.4-5.0); Sodium 126 mmol/L (137-145)
[2021-03-24] MEDS: LEVOTHYROXINE SODIUM 25 MCG TABLET PO (06:21)
--- NOTE | 2021-03-24 06:28 | PC.NURSE ---
Upon entering room, patient states I'm getting low blood sugar symptoms. Blood glucose checked, resulted at 59. Explained hypoglycemic protocol and use of glucose gel - patient refused gel. Patient then refused 4oz apple juice. Provided regular white soda, césar crackers and peanut butter per patient request.
[2021-03-24 06:31] LABS: Glucose Point of Care 59 mg/dl (65-105)
[2021-03-24 06:57] LABS: Glucose Point of Care 80 mg/dl (65-105)
--- NOTE | 2021-03-24 07:24 | P.CDI_ITS ---
CDI Query Clarification Request -CHF has been documented -BNP 7350, CXR impression: findings consistent with CHF exacerbation -Lasix 40mg IV q12 hrs ordered -Echo summary: EF 50-55%, left ventricular diastolic function is indeterminate Please further clarify type and acuity of CHF: * Systolic *Acute * Diastolic * Chronic * Both systolic and diastolic *Acute on Chronic * Unable to determine * Unable to determine <Carol Arceo RN - Last Filed: 03/24/21 07:29> Clarified Diagnosis (1) CHF (congestive heart failure): Code(s): I50.9 - Heart failure, unspecified <Carol Arceo RN - Last Filed: 03/24/21 07:29> Status: Acute <Carol Arceo RN - Last Filed: 03/24/21 07:29> Assessment and Plan: Acute on chronic diastolic heart failure with preserved ejection fraction 50-55%. <Yin Luz MD - Last Filed: 03/26/21 12:38>
[2021-03-24] MEDS: PREGABALIN (*CRX) 50 MG CAPSULE 200 MG PO ×2 (08:45→17:28)
[2021-03-24] MEDS: METHOTREXATE 2.5 MG TAB (*CHEMO) 12.5 MG PO (08:45)
[2021-03-24] MEDS: FENOFIBRATE NANOCRYSTALLIZED 145 MG TABLET PO (08:46)
[2021-03-24] MEDS: hydrALAZINE 12.5 MG TABLET PO ×2 (08:46→17:29)
[2021-03-24] MEDS: ASPIRIN 81 MG ENTERIC TABLET PO (08:46)
[2021-03-24] MEDS: CYANOCOBALAMIN 500 MCG TABLET 2500 MCG PO (08:46)
[2021-03-24] MEDS: PYRIDOXINE HCL 25 MG TABLET PO (08:46)
[2021-03-24] MEDS: dilTIAZem HCL CD 180 MG CAP.ER.24H 360 MG PO (08:46)
[2021-03-24] MEDS: CHOLECALCIFEROL 1,000 UNITS TABLET 5000 UNITS PO (08:46)
[2021-03-24] MEDS: DULoxetine HCL 60 MG CAPSULE.DR PO (08:46)
[2021-03-24] MEDS: FOLIC ACID 1 MG TABLET PO (08:47)
[2021-03-24] MEDS: FUROSEMIDE INJ 40 MG/4 ML VIAL IV PUSH (08:47)
[2021-03-24] MEDS: NORTRIPTYLINE HCL 10 MG CAPSULE 20 MG PO ×2 (08:47→12:51)
[2021-03-24] MEDS: hydrALAZINE HCL 25 MG TABLET PO ×2 (08:47→17:29)
[2021-03-24 09:20] LABS: Glucose Point of Care 116 mg/dl (65-105)
--- NOTE | 2021-03-24 10:00 | PM.IMPN ---
Progress Note: A&P Assessment and Plan (1) Atrial fibrillation with rapid ventricular response: Code(s): I48.91 - Unspecified atrial fibrillation Status: Acute Assessment and Plan: Patient heart rate was as fast was 130s. Continue cardizem 360 mg PO daily. Started carvedilol 3.125 mg PO BID.. (2) Left-sided weakness: Code(s): R53.1 - Weakness Status: Acute Assessment and Plan: Improving with daily exercise. Likely secondary to acute CVA in the setting of thromboembolic event due to atrial fibrillation in a patient non compliant with anticoagulation regimen. Head MRI is contraindicated. Repeat CT brain is unrevealing. Resume rivaroxaban when cleared on the day after discharge. (3) Hypertension: Code(s): I10 - Essential (primary) hypertension Status: Chronic Assessment and Plan: Blood pressures were reviewed and they have been reasonable with isolated diastolic elevation. Continue antihypertensives and monitor closely for now. Stopped amlodipine per cardiology. started carvedilol for rate control. due to mild elevation of creatinine, home DUNIA and diuretics on hold. (4) Dyslipidemia: Code(s): E78.5 - Hyperlipidemia, unspecified Status: Acute Assessment and Plan: Continue fenofibrate. LDL at goal. (5) Insulin dependent diabetes mellitus: Status: Acute Assessment and Plan: Patient on her insulin pump. Check hemoglobin A1c. Initiate sliding scale insulin, Accu-Cheks, and hypoglycemic protocol. Hpoglycemia was corrected this morning. (6) Renal failure: Code(s): N19 - Unspecified kidney failure Status: Acute Assessment and Plan: Resolving acute non oliguric kidney injury. BUN and creatinine are improving toward her baseline. There is likely an element of cardiorenal syndrome. Renal ultrasound suggest medical renal disease. MOnitor BUN and creatinine. Hold DUNIA and diuretic for now. (7) Heart failure: Code(s): I50.9 - Heart failure, unspecified Status: Acute Assessment and Plan: Patient has findings suggestive of congestive heart failure with pulmonary effusions, elevated BNP, and lower extremity edema. May very well be high output failure from atrial fibrillation/rapid ventricular response. Continue cautious diuresis with close monitoring of volume status and renal function. (8) Hyponatremia syndrome: Code(s): E87.1 - Hypo-osmolality and hyponatremia Status: Acute Assessment and Plan: has been present since damission. May be side effect of thiazide diuretic. Obtain Subjective Date/time seen: 03/24/21 10:00 This is a 75-year-old female with paroxysmal atrial fibrillation, insulin-dependent diabetes, hypertension, dyslipidemia, hypothyroidism, and rheumatoid arthritis who presented to the emergency department on 03/21/2021 with left-sided weakness. Brain CT showed no evidence of acute stroke and since arrival to the emergency department her symptoms have improved quite a bit. EKG showed atrial fibrillation with ventricular response for which she was placed on a Cardizem drip with some improvement in her heart rate. She was evaluated by cardiology and cardizem oral dose was uptitrated for 240 to 360 . She was scheduled for a MRI which is contraindicated due to her bladder pacemaker. A repeat brain CT was unremarkable. PAtient now working with PT and has noticed some improvement of her left sided weakness. Resting heart rate inthe 120-130 at the time of encounter; added low dose betablocker. Review of Systems Review of Systems: All systems reviewed & are unremarkable except as noted in HPI and below Constitutional: Constitutional: Reports no additional constitutional complaints and Reports weakness Cardiovascular: Cardiovascular: Reports no additional cardiovascular complaints, Denies chest pain and Denies dyspnea Respiratory: Respiratory: Reports no additional respiratory
--- NOTE | 2021-03-24 12:02 | PM.PNCARD ---
Progress Note: A&P Assessment and Plan (1) Atrial fibrillation with rapid ventricular response: Code(s): I48.91 - Unspecified atrial fibrillation Status: Acute Assessment and Plan: Heart rate remains elevated although better controlled overall. Will discontinue carvedilol in favor of for heart rate control with metoprolol 25 mg p.o. b.i.d.. Resume systemic anticoagulation when okay per Neurology. Patient remained compliant with anticoagulation and medical therapy for stroke risk reduction. Prior to discharge need to ensure adequate heart rate control, tolerance of medications including transition to oral diuretics and precise recommendations for resuming systemic anticoagulation. Furthermore, plans for rehabilitation either inpatient or at home per primary service. (2) CHF (congestive heart failure): Code(s): I50.9 - Heart failure, unspecified Status: Acute Assessment and Plan: Stable, reasonably compensated. Acute renal failure hold off on triamterene hydrochlorothiazide. Change Lasix to 40 mg p.o. b.i.d.. (3) Acute CVA (cerebrovascular accident): Code(s): I63.9 - Cerebral infarction, unspecified Status: Acute Assessment and Plan: Neurology following. Stroke secondary to cardioembolic related to atrial fibrillation due to noncompliance with medications including systemic anticoagulation. As above. Would strongly recommend addition of statin therapy, however, LDL is 35 without directed therapy per medication list. (4) Renal failure: Code(s): N19 - Unspecified kidney failure Status: Acute Assessment and Plan: Stable. Per primary service. (5) Dyslipidemia: Code(s): E78.5 - Hyperlipidemia, unspecified Status: Acute Assessment and Plan: As above, LDL 35. (6) Insulin dependent diabetes mellitus: Status: Acute Assessment and Plan: Per primary service. Subjective Date/time seen: Date of service: 03/24/21 12:02 Interval history: Follow-up visit in this 76-year-old woman with: Chronic atrial fibrillation unfortunately with apparent cardioembolic stroke because of noncompliance with medication. Patient discontinued all of her medication including her anticoagulation several weeks ago. She complains of feeling weak difficulty standing on her own. States she otherwise feels very well no shortness of breath, chest pain or palpitations. She noted some swelling in her legs after sitting in a chair for several hours this morning. Review of Systems Constitutional: Constitutional: Reports fatigue and Reports lethargy Eyes: Eyes: Reports no additional eye complaints ENT: Reports system reviewed and no additional complaints, except as documented Cardiovascular: Cardiovascular: Reports no additional cardiovascular complaints Respiratory: Respiratory: Reports no additional respiratory complaints Gastrointestinal: Gastrointestinal: Reports no additional gastrointestinal complaints Musculoskeletal: Musculoskeletal: Reports arthralgias Integumentary/Breasts: Skin/Breast: Reports system reviewed and no additional complaints, except as docu Neurologic: Reports as per HPI Endocrine: Endocrine: Reports no additional endocrine complaints and Reports fatigue Hematologic/Lymphatic: Hematologic/Lymphatic: Reports no additional hematologic/lymphatic complaints Allergic/Immunologic: Allergic/Immunologic: Reports no additional allergic/immunologic complaints Exam Const: General: comfortable and no acute distress Other: Pleasant elderly white female cooperative no distress of any kind HENMT: Mouth: Yes moist mucous membranes Eyes: Sclera: sclerae normal Pupils: Equal, round and reactive pupils present Neck: Neck: supple and no JVD Resp: Effort & Inspection: normal respiratory effort Auscultation: clear to auscultation bilaterally Cardio: Jugular venous distension: no JVD Rate: tachycardic Rhythm: abnormal rhythm irreg
[2021-03-24] MEDS: METOPROLOL TARTRATE 25 MG TABLET PO ×2 (12:51→21:00)
[2021-03-24 12:54] LABS: Sodium Urine Random 26 meq/L
[2021-03-24 14:33] LABS: Glucose Point of Care 105 mg/dl (65-105)
--- NOTE | 2021-03-24 16:07 | PCPTNOTE ---
On 03/24/21, the student, Ray GARCIA, provided care and completed [facility] documentation on this patient. I have reviewed the student's documentation and agree with the findings.
[2021-03-24 17:06] LABS: Glucose Point of Care 76 mg/dl (65-105)
[2021-03-24] MEDS: FUROSEMIDE 40 MG TABLET PO (17:28)
--- NOTE | 2021-03-24 20:48 | PC.NURSE ---
Patient noted to be drowsy on assessment. Fed pears, césar crackers and peanut butter and home insulin pump removed and placed in closet. Tammie CCT checked glucose and noted it to be 66. Notedly more alert post eating. Patient encouraged to continue eating.
[2021-03-24 20:53] LABS: Glucose Point of Care 66 mg/dl (65-105)
[2021-03-24] MEDS: NORTRIPTYLINE HCL 10 MG CAPSULE 30 MG PO (21:00)
[2021-03-24 23:43] LABS: Glucose Point of Care 161 mg/dl (65-105)
[2021-03-25] VITALS (13 sets, daily range): BP systolic 98–124; BP diastolic 49–85; PULSE 57–94; RESP 16–20; TEMP 36.3–36.8; O2SAT 94–100
[2021-03-25 04:33] LABS: Basophils Percent Auto 0.1 % (0.2-1.2); Eosinophils Absolute Auto 0.1 K/mm3 (0-0.3); Eosinophils Percent Auto 1.4 % (0-4.4); Hematocrit 34.3 % (37.0-47.0); Hemoglobin 10.6 g/dL (12.0-15.0); Immature Granulocyte Absolute 0.06 K/mm3 (0.00-0.031); Immature Granulocyte Percent A 0.6 % (0-0.5); Lymphocytes Percent Auto 8.1 % (18.3-44.2); Mean Corpuscular HGB Conc 30.9 g/dl (32-36); Mean Corpuscular Hemoglobin 26.2 pg (26-34); Mean Corpuscular Volume 84.7 fl (80-100); Mean Platelet Volume 9.6 fl (7.4-10.4); Monocytes Absolute Auto 0.7 K/mm3 (0.1-0.6); Monocytes Percent Auto 7.3 % (2.6-8.5); Neutrophils Absolute Auto 8.1 K/mm3 (1.3-6.7); Neutrophils Percent Auto 82.5 % (45.5-73.1); Platelet Count Result 285 k/mm3 (150-375); Red Blood Count 4.05 M/mm3 (4.2-5.4); White Blood Count 9.8 K/mm3 (4.5-10.0)
[2021-03-25 04:45] LABS: Anion Gap 8 mmol/L (8-16); Blood Urea Nitrogen 44 mg/dL (7-17); Carbon Dioxide 27 mmol/L (22-30); Chloride 88 mmol/L (98-107); Estimated CRCL calculation 33 ml/min; Estimated Glomerular Filt Rate 40; Glucose 308 mg/dL (65-110); Potassium 4.2 mmol/L (3.4-5.0); Sodium 123 mmol/L (137-145)
[2021-03-25] MEDS: LEVOTHYROXINE SODIUM 25 MCG TABLET PO (05:44)
[2021-03-25] MEDS: CHOLECALCIFEROL 1,000 UNITS TABLET 5000 UNITS PO (09:06)
[2021-03-25] MEDS: CYANOCOBALAMIN 500 MCG TABLET 2500 MCG PO (09:06)
[2021-03-25] MEDS: FENOFIBRATE,MICRONIZED 48 MG TABLET PO (09:07)
[2021-03-25] MEDS: ASPIRIN 81 MG ENTERIC TABLET PO (09:07)
[2021-03-25] MEDS: PYRIDOXINE HCL 25 MG TABLET PO (09:07)
[2021-03-25] MEDS: DULoxetine HCL 60 MG CAPSULE.DR PO (09:07)
[2021-03-25] MEDS: FUROSEMIDE 40 MG TABLET PO ×2 (09:07→16:34)
[2021-03-25] MEDS: FOLIC ACID 1 MG TABLET PO (09:07)
[2021-03-25] MEDS: ATORVASTATIN 10 MG TABLET PO (09:07)
[2021-03-25] MEDS: hydrALAZINE 12.5 MG TABLET PO ×2 (09:07→16:34)
[2021-03-25] MEDS: hydrALAZINE HCL 25 MG TABLET PO ×2 (09:08→16:34)
[2021-03-25] MEDS: dilTIAZem HCL CD 180 MG CAP.ER.24H 360 MG PO (09:08)
[2021-03-25] MEDS: METOPROLOL TARTRATE 25 MG TABLET PO ×2 (09:08→20:57)
[2021-03-25] MEDS: NORTRIPTYLINE HCL 10 MG CAPSULE 20 MG PO ×2 (09:09→12:50)
[2021-03-25] MEDS: INSULIN ASPART (*BKC) 100 UNITS/ML SUB-Q ×3 (09:09→16:33)
[2021-03-25 09:45] LABS: Glucose Point of Care 331 mg/dl (65-105)
--- NOTE | 2021-03-25 12:02 | PM.CNNEP ---
Assessment and Plan Assessment and plan (1) Hyponatremia syndrome: Code(s): E87.1 - Hypo-osmolality and hyponatremia Status: Acute Assessment and Plan: The patient has hyponatremia. Looking back in the records this is not been the case in the past. The only new issues going on are: The GI episode which does not seem to have been hemodynamically significant. The new addition of Xarelto for the atrial fibrillation. May be more than usual narcotics, but still small dose, and the stroke. Etiology of hyponatremia includes: Medications. The patient is on a thiazide and also on a SSRI. She has been on both of these for years however so these may be additive but are not the whole issue. The former has been discontinued. She remains on anti depressants. She has been taking narcotics. Endocrine issues: Will check a TSH and a cortisol level Cancer issues: The patient does not have any signs or symptoms of cancer and no history of cancer. L[employer]ATOR issues: The patient did have a stroke but no major space occupying edema or mass. Pulmonary issues: She does have some signs of volume overload but no other issues. Dehydration: She may be pre renal from the heart. If so this would purely be on the basis of her atrial fibrillation and loss of atrial kick with decreased cardiac output rather than being a cardiomyopathy. Her echo looked okay. Her sodium level has not improved with 1500cc fluid restriction. Will enhance this to a 1000cc. She is getting diuretics for her volume overload. I will add salt tablets to be given with the diuretics. We can check another sodium this afternoon and see what it shows. We will shoot for a correction of about 6 per 24 hours. (2) Acute CVA (cerebrovascular accident): Code(s): I63.9 - Cerebral infarction, unspecified Status: Acute Assessment and Plan: The patient has weakness on the left side. (3) CHF (congestive heart failure): Code(s): I50.9 - Heart failure, unspecified Status: Acute Assessment and Plan: Patient does not have a cardiomyopathy. Atrial fibrillation can reduced cardiac output however. (4) Hypertension: Code(s): I10 - Essential (primary) hypertension Status: Chronic Assessment and Plan: Blood pressure is doing pretty well. (5) Atrial fibrillation with rapid ventricular response: Code(s): I48.91 - Unspecified atrial fibrillation Status: Acute Assessment and Plan: Heart rate is well controlled (6) Rheumatoid arthritis: Code(s): M06.9 - Rheumatoid arthritis, unspecified Status: Acute Assessment and Plan: She is on methotrexate and hydrocodone for this. (7) Dyslipidemia: Code(s): E78.5 - Hyperlipidemia, unspecified Status: Acute Assessment and Plan: She is on medications for this (8) Insulin dependent diabetes mellitus: Status: Acute Assessment and Plan: She is on sliding scale insulin History of Present Illness Reason for Consult Consult date: 03/25/21 Chief Complaint Chief complaint: acute CVA/CHF/atrial fibrillation with RVR History of Present Illness Narrative: Regine is a very pleasant 76-year-old lady who has multiple medical problems including Meniere's disease, hypertension, paroxysmal atrial fibrillation on Xarelto, hyperlipidemia, arthritis, vitamin-D deficiency, hypothyroidism, and rheumatoid arthritis. Patient says that early this month that she had a condition where she had 5 or 6 bowel movements per day. There were not liquid and they were solid. She did not really have nausea although she received a nausea pill. She says that on the day she came in the hospital the patient had a good day running errands and then suddenly lost strength in her left leg. She came to the emergency room and was evaluated. She was found to be having a stroke. She had some evaluation in her sodium level was low. She was on hydrochlorothiazide at
[2021-03-25 12:20] LABS: Glucose Point of Care 375 mg/dl (65-105)
--- NOTE | 2021-03-25 15:19 | PM.PNCARD ---
Progress Note: A&P Assessment and Plan (1) Atrial fibrillation with rapid ventricular response: Code(s): I48.91 - Unspecified atrial fibrillation <KAYLIN Chicas - Last Filed: 03/25/21 15:42> Status: Acute <KAYLIN Chicas - Last Filed: 03/25/21 15:42> Assessment and Plan: Heart rate well controlled at this point on metoprolol 25mg b.i.d and cardizem 360mg daily. BP is tolerating this reasonably well. Resume systemic anticoagulation when okay per Neurology. Prior to discharge need to ensure adequate heart rate control, tolerance of medications including transition to oral diuretics and precise recommendations for resuming systemic anticoagulation. Furthermore, plans for rehabilitation either inpatient or at home per primary service. <KAYLIN Chicas - Last Filed: 03/25/21 15:42> (2) CHF (congestive heart failure): Code(s): I50.9 - Heart failure, unspecified <KAYLIN Chicas - Last Filed: 03/25/21 15:42> Status: Acute <KAYLIN Chicas - Last Filed: 03/25/21 15:42> Assessment and Plan: Stable, reasonably compensated. Acute renal failure hold off on triamterene hydrochlorothiazide. Continue lasix 40mg p.o. b.i.d. <KAYLIN Chicas - Last Filed: 03/25/21 15:42> (3) Acute CVA (cerebrovascular accident): Code(s): I63.9 - Cerebral infarction, unspecified <KAYLIN Chicas - Last Filed: 03/25/21 15:42> Status: Acute <KAYLIN Chicas - Last Filed: 03/25/21 15:42> Assessment and Plan: Neurology following. Stroke secondary to cardioembolic related to atrial fibrillation due to noncompliance with medications including systemic anticoagulation. As above. Would strongly recommend addition of statin therapy, however, LDL is 35 without directed therapy per medication list. <KAYLIN Chicas - Last Filed: 03/25/21 15:42> (4) Renal failure: Code(s): N19 - Unspecified kidney failure <KAYLIN Chicas - Last Filed: 03/25/21 15:42> Status: Acute <KAYLIN Chicas - Last Filed: 03/25/21 15:42> Assessment and Plan: Stable. Per primary service. <AKYLIN Chicas - Last Filed: 03/25/21 15:42> (5) Dyslipidemia: Code(s): E78.5 - Hyperlipidemia, unspecified <KAYLIN Chicas - Last Filed: 03/25/21 15:42> Status: Acute <KAYLIN Chicas - Last Filed: 03/25/21 15:42> Assessment and Plan: As above, LDL 35. <KAYLIN Chicas - Last Filed: 03/25/21 15:42> (6) Insulin dependent diabetes mellitus: Status: Acute <KAYLIN Chicas - Last Filed: 03/25/21 15:42> Assessment and Plan: Per primary service. <KAYLIN Chicas - Last Filed: 03/25/21 15:42> Additional Plan Attending addendum: I agree with the above documentation and plan of care as outlined. <Dylan Loving MD - Last Filed: 03/25/21 16:28> Subjective Date/time seen: 03/25/21 15:19 <KAYLIN Chicas - Last Filed: 03/25/21 15:42> Interval history: Follow-up visit in this 76-year-old woman with: Chronic atrial fibrillation unfortunately with apparent cardioembolic stroke because of noncompliance with medication. Patient discontinued all of her medication including her anticoagulation several weeks ago. She complains of feeling weak difficulty standing on her own. States she otherwise feels very well no shortness of breath, chest pain or palpitations. She noted some swelling in her legs after sitting in a chair for several hours this morning. Date of service 03/25/2021: She is feeling better today. She does ambulated to the bathroom and back to bed right before I saw her. She says that she did well with this and her weakness she feels is improving. She denies any chest pain, shortness of breath, palpitations. <Patricia Lozada APN-Sanjana - Last Filed: 03/25/21 15:42> Review of System
[2021-03-25] MEDS: PREGABALIN (*CRX) 50 MG CAPSULE 200 MG PO (16:33)
[2021-03-25] MEDS: SODIUM CHLORIDE 1 GM TABLET PO ×2 (16:34→20:57)
[2021-03-25 16:39] LABS: Glucose Point of Care 273 mg/dl (65-105)
--- NOTE | 2021-03-25 16:51 | PM.IMPN ---
Progress Note: A&P Assessment and Plan (1) Atrial fibrillation with rapid ventricular response: Code(s): I48.91 - Unspecified atrial fibrillation Status: Acute Assessment and Plan: Patient is rate controlled in the 70-90 range. Continue cardizem 360 mg PO daily and metoprolol 25 mg PO BID.. (2) Left-sided weakness: Code(s): R53.1 - Weakness Status: Acute Assessment and Plan: Improving with daily exercise. Likely secondary to acute CVA in the setting of thromboembolic event due to atrial fibrillation in a patient non compliant with anticoagulation regimen. Head MRI is contraindicated. Repeat CT brain is unrevealing. Resume rivaroxaban tomorrow after discussion with neurology (3) Hypertension: Code(s): I10 - Essential (primary) hypertension Status: Chronic Assessment and Plan: Blood pressures were reviewed and they have been reasonable with isolated diastolic elevation. Continue antihypertensives and monitor closely for now. Stopped amlodipine per cardiology. Continue metoprolol for rate control. due to mild elevation of creatinine, home DUNIA and diuretics on hold. (4) Dyslipidemia: Code(s): E78.5 - Hyperlipidemia, unspecified Status: Acute Assessment and Plan: Continue fenofibrate. LDL at goal. (5) Insulin dependent diabetes mellitus: Status: Acute Assessment and Plan: Patient on her insulin pump. Check hemoglobin A1c. Initiate sliding scale insulin, Accu-Cheks, and hypoglycemic protocol. Hpoglycemia was corrected this morning. (6) Renal failure: Code(s): N19 - Unspecified kidney failure Status: Acute Assessment and Plan: Resolving acute non oliguric kidney injury. BUN and creatinine are improving toward her baseline. There is likely an element of cardiorenal syndrome. Renal ultrasound suggest medical renal disease. MOnitor BUN and creatinine. Hold DUNIA and diuretic for now. (7) Heart failure: Code(s): I50.9 - Heart failure, unspecified Status: Acute Assessment and Plan: Patient has findings suggestive of congestive heart failure with pulmonary effusions, elevated BNP, and lower extremity edema. May very well be high output failure from atrial fibrillation/rapid ventricular response. Continue cautious diuresis with close monitoring of volume status and renal function. (8) Hyponatremia syndrome: Code(s): E87.1 - Hypo-osmolality and hyponatremia Status: Acute Assessment and Plan: has been present since damission. May be side effect of thiazide diuretic and SSRI. There may be an element of ADH responsiveness due to appropriate ADH release in the setting of afib with RVR. Nephrology consulted. TSH and cortisol within normal limits. Serum Na pending. Urine Na 26, patient on lasix twice daily. Starter further water restriction 1 L per day, salt tablets. We will avoid thiazides as an outpatient. Recheck serum Na this afternoon. Subjective Date/time seen: 03/25/21 16:51 Interval history: This is a 75-year-old female with paroxysmal atrial fibrillation, insulin-dependent diabetes, hypertension, dyslipidemia, hypothyroidism, and rheumatoid arthritis who presented to the emergency department on 03/21/2021 with left-sided weakness. Brain CT showed no evidence of acute stroke and since arrival to the emergency department her symptoms have improved quite a bit. EKG showed atrial fibrillation with ventricular response for which she was placed on a Cardizem drip with some improvement in her heart rate. She was evaluated by cardiology and cardizem oral dose was uptitrated for 240 to 360 . She was scheduled for a MRI which is contraindicated due to her bladder pacemaker. A repeat brain CT was unremarkable. PAtient now working with PT and has noticed some improvement of her left sided weakness. She complains of feeling weak difficulty standing on her own. S: Patient was examined at the beds
[2021-03-25 18:26] LABS: Creatinine Urine 28.7 mg/dL
[2021-03-25 18:38] LABS: Sodium Urine Random < 5 meq/L
[2021-03-25 19:18] LABS: Sodium 121 mmol/L (137-145)
[2021-03-25 20:33] LABS: Glucose Point of Care 439 mg/dl (65-105)
[2021-03-25] MEDS: INSULIN ASPART (*BKC) 100 UNITS/ML 10 UNITS SUB-Q (20:56)
[2021-03-25] MEDS: NORTRIPTYLINE HCL 10 MG CAPSULE 30 MG PO (20:58)
[2021-03-26] VITALS (10 sets, daily range): BP systolic 108–128; BP diastolic 44–62; PULSE 58–82; RESP 16–20; TEMP 36.2–36.6; O2SAT 95–99
[2021-03-26 05:50] LABS: Basophils Percent Auto 0.2 % (0.2-1.2); Eosinophils Absolute Auto 0.1 K/mm3 (0-0.3); Eosinophils Percent Auto 1.3 % (0-4.4); Hematocrit 32.5 % (37.0-47.0); Hemoglobin 10.3 g/dL (12.0-15.0); Immature Granulocyte Absolute 0.06 K/mm3 (0.00-0.031); Immature Granulocyte Percent A 0.6 % (0-0.5); Lymphocytes Absolute Auto 0.86 K/mm3 (0.9-3.2); Lymphocytes Percent Auto 9.1 % (18.3-44.2); Mean Corpuscular HGB Conc 31.7 g/dl (32-36); Mean Corpuscular Hemoglobin 25.9 pg (26-34); Mean Corpuscular Volume 81.7 fl (80-100); Monocytes Absolute Auto 0.5 K/mm3 (0.1-0.6); Monocytes Percent Auto 5.7 % (2.6-8.5); Neutrophils Absolute Auto 7.9 K/mm3 (1.3-6.7); Neutrophils Percent Auto 83.1 % (45.5-73.1); Platelet Count Result 304 k/mm3 (150-375); Red Blood Count 3.98 M/mm3 (4.2-5.4); Red Cell Distribution Width 16.4 % (11.5-14.5); White Blood Count 9.5 K/mm3 (4.5-10.0)
[2021-03-26 06:06] LABS: Anion Gap 9 mmol/L (8-16); Blood Urea Nitrogen 48 mg/dL (7-17); Calcium 8.1 mg/dL (8.4-10.2); Carbon Dioxide 25 mmol/L (22-30); Chloride 90 mmol/L (98-107); Estimated CRCL calculation 33 ml/min; Estimated Glomerular Filt Rate 40; Glucose 240 mg/dL (65-110); Potassium 3.8 mmol/L (3.4-5.0); Sodium 124 mmol/L (137-145)
[2021-03-26] MEDS: LEVOTHYROXINE SODIUM 25 MCG TABLET PO (06:17)
[2021-03-26] MEDS: PYRIDOXINE HCL 25 MG TABLET PO (08:31)
[2021-03-26] MEDS: FENOFIBRATE NANOCRYSTALLIZED 145 MG TABLET PO (08:32)
[2021-03-26] MEDS: dilTIAZem HCL CD 180 MG CAP.ER.24H 360 MG PO (08:32)
[2021-03-26] MEDS: METOPROLOL TARTRATE 25 MG TABLET PO ×2 (08:32→21:09)
[2021-03-26] MEDS: FUROSEMIDE 40 MG TABLET PO ×2 (08:32→17:40)
[2021-03-26] MEDS: FOLIC ACID 1 MG TABLET PO (08:32)
[2021-03-26] MEDS: DULoxetine HCL 60 MG CAPSULE.DR PO (08:32)
[2021-03-26] MEDS: CYANOCOBALAMIN 500 MCG TABLET 2500 MCG PO (08:33)
[2021-03-26] MEDS: ATORVASTATIN 10 MG TABLET PO (08:33)
[2021-03-26] MEDS: ASPIRIN 81 MG ENTERIC TABLET PO (08:33)
[2021-03-26] MEDS: CHOLECALCIFEROL 1,000 UNITS TABLET 5000 UNITS PO (08:33)
[2021-03-26] MEDS: hydrALAZINE 12.5 MG TABLET PO ×2 (08:34→17:39)
[2021-03-26] MEDS: NORTRIPTYLINE HCL 10 MG CAPSULE 20 MG PO ×2 (08:34→12:00)
[2021-03-26] MEDS: hydrALAZINE HCL 25 MG TABLET PO ×2 (08:34→17:39)
[2021-03-26] MEDS: PREGABALIN (*CRX) 50 MG CAPSULE 200 MG PO ×2 (08:38→17:39)
--- NOTE | 2021-03-26 08:46 | PM.IMPN ---
Progress Note: A&P Assessment and Plan (1) Atrial fibrillation with rapid ventricular response: Code(s): I48.91 - Unspecified atrial fibrillation Status: Acute Assessment and Plan: Patient iscurrently rate controlled in the 70-90 range. Continue cardizem 360 mg PO daily and metoprolol 25 mg PO BID.. (2) Left-sided weakness: Code(s): R53.1 - Weakness Status: Acute Assessment and Plan: Improving with daily exercise. Likely secondary to acute CVA in the setting of thromboembolic event due to atrial fibrillation in a patient non compliant with anticoagulation regimen. Head MRI is contraindicated. Repeat CT brain is unrevealing. Resume rivaroxaban today after discussion with neurology (3) Hypertension: Code(s): I10 - Essential (primary) hypertension Status: Chronic Assessment and Plan: Blood pressures were reviewed and they have been reasonable with isolated diastolic elevation. Continue antihypertensives and monitor closely for now. Stopped amlodipine per cardiology. Continue metoprolol for rate control. due to mild elevation of creatinine, home DUNIA and diuretics on hold. (4) Dyslipidemia: Code(s): E78.5 - Hyperlipidemia, unspecified Status: Acute Assessment and Plan: Continue fenofibrate. LDL at goal. (5) Insulin dependent diabetes mellitus: Status: Acute Assessment and Plan: Patient on her insulin pump. Hemoglobin A1c 7.4. Continue sliding scale insulin, Accu-Cheks, and hypoglycemic protocol. Hypoglycemia was corrected this morning. (6) Renal failure: Code(s): N19 - Unspecified kidney failure Status: Acute Assessment and Plan: Resolving acute non oliguric kidney injury. BUN and creatinine are improving toward her baseline. There is likely an element of cardiorenal syndrome. Renal ultrasound suggest medical renal disease. Monitor BUN and creatinine. Hold DUNIA and diuretic for now. (7) Heart failure: Code(s): I50.9 - Heart failure, unspecified Status: Acute Assessment and Plan: Patient has findings suggestive of congestive heart failure with pulmonary effusions, elevated BNP, and lower extremity edema. Likely output failure from atrial fibrillation/rapid ventricular response. Continue cautious diuresis with close monitoring of volume status and renal function. (8) Hyponatremia syndrome: Code(s): E87.1 - Hypo-osmolality and hyponatremia Status: Acute Assessment and Plan: Hyponatremia has been present since admission. Likely side effect of thiazide diuretic and SSRI. There may be an element of ADH responsiveness due to appropriate ADH release in the setting of afib with RVR. TSH and cortisol within normal limits. Serum Na improving from 121 to 124 today. Urine Na 26, patient on lasix twice daily. Starter stricter water restriction 1 L per day, salt tablets. We will avoid thiazides as an outpatient. Recheck serum Na this afternoon. Subjective Date/time seen: 03/26/21 07:45 Interval history: This is a 75-year-old female with paroxysmal atrial fibrillation, insulin-dependent diabetes, hypertension, dyslipidemia, hypothyroidism, and rheumatoid arthritis who presented to the emergency department on 03/21/2021 with left-sided weakness. Brain CT showed no evidence of acute stroke and since arrival to the emergency department her symptoms have improved quite a bit. EKG showed atrial fibrillation with ventricular response for which she was placed on a Cardizem drip with some improvement in her heart rate. She was evaluated by cardiology and cardizem oral dose was uptitrated for 240 to 360 . She was scheduled for a MRI which is contraindicated due to her bladder pacemaker. A repeat brain CT was unremarkable. Patient now working with PT and has noticed some improvement of her left sided weakness. She complains of feeling weak difficulty standing on her own. S: Patient was examined at t
[2021-03-26 08:52] LABS: Glucose Point of Care 340 mg/dl (65-105)
[2021-03-26] MEDS: INSULIN ASPART (*BKC) 100 UNITS/ML SUB-Q ×2 (09:43→12:49)
--- NOTE | 2021-03-26 10:49 | PM.PNNEP ---
Progress Note: A&P Assessment and Plan (1) Hyponatremia syndrome: Code(s): E87.1 - Hypo-osmolality and hyponatremia Status: Acute Assessment and Plan: The patient has hyponatremia. TSH and cortisol are okay. Images look okay. She was on a thiazide and SSRI as an outpatient. Urine sodium is low. Most likely the hyponatremia is due to pre renal factors probably due to the heart and complicated by the Narcotics, thiazide and SSRI. 03/24 Na 126 03/25 Na 123 then 121 03/26 Na 124 Currently on fluid restriction of 800cc per day. She is volume overloaded so she is getting diuretics; I am giving salt tablets with the diuretics to keep the sodium from dropping from the diuretics. (2) Acute CVA (cerebrovascular accident): Code(s): I63.9 - Cerebral infarction, unspecified Status: Acute Assessment and Plan: The patient has weakness on the left side. (3) CHF (congestive heart failure): Code(s): I50.9 - Heart failure, unspecified Status: Acute Assessment and Plan: Patient does not have a cardiomyopathy. Atrial fibrillation can reduced cardiac output however. (4) Hypertension: Code(s): I10 - Essential (primary) hypertension Status: Chronic Assessment and Plan: Blood pressure is doing pretty well. (5) Atrial fibrillation with rapid ventricular response: Code(s): I48.91 - Unspecified atrial fibrillation Status: Acute Assessment and Plan: Heart rate is well controlled (6) Rheumatoid arthritis: Code(s): M06.9 - Rheumatoid arthritis, unspecified Status: Acute Assessment and Plan: She is on methotrexate and hydrocodone for this. (7) Dyslipidemia: Code(s): E78.5 - Hyperlipidemia, unspecified Status: Acute Assessment and Plan: She is on medications for this (8) Insulin dependent diabetes mellitus: Status: Acute Assessment and Plan: She is on sliding scale insulin Subjective Date/time seen: 03/26/21 10:49 Interval history: Regine is feeling well today. She slept okay last night. Review of Systems Cardiovascular: Cardiovascular: Reports no additional cardiovascular complaints Respiratory: Respiratory: Reports no additional respiratory complaints Gastrointestinal: Gastrointestinal: Reports no additional gastrointestinal complaints Genitourinary: Genitourinary: Reports no additional female genitourinary complaints Exam Narrative: WDWN in NAD skin no rash head ncat lungs clear cor reg no rub abd BS+ nontender and soft ext 1+ bilateral edema. Objective Data Vital Signs Vital Signs: Vital Signs - 24 hr 03/25/21 12:00 03/25/21 14:00 03/25/21 15:53 Temperature 36.6 C 36.8 C Pulse Rate 75 89 71 Respiratory Rate 18 16 Blood Pressure 98/49 L 115/57 L Pulse Oximetry 99 100 03/25/21 16:00 03/25/21 20:00 03/25/21 20:57 Temperature 36.6 C Pulse Rate 65 85 76 Respiratory Rate 20 Blood Pressure 108/63 Pulse Oximetry 94 03/25/21 23:44 03/26/21 00:00 03/26/21 04:00 Temperature 36.5 C 36.6 C Pulse Rate 57 L 66 58 L Respiratory Rate 18 18 Blood Pressure 101/49 L 110/58 L Pulse Oximetry 97 95 03/26/21 08:45 Temperature Pulse Rate 73 Respiratory Rate Blood Pressure 125/58 L Pulse Oximetry 96 Intake/Output Intake/Output: Intake & Output 03/23/21 03/24/21 03/25/21 03/26/21 23:59 23:59 23:59 23:59 Intake Total 2470 1210 1060 440 Output Total 2950 4058 6486 1338 [facility] [phone] Meds/Results Medications: Active Medications Generic Name Dose Route Start Last Admin Trade Name Freq PRN Reason Stop Dose Admin Hydrocodone Bitart/Acetaminophen 1 tab 03/21/21 21:27 Hydrocodone/Acetaminophen (*Crx) 10-325 Mg Tablet PO Q8H PRN Pain Rated 4-6 Aspirin 81 mg 03/22/21 09:00 03/26/21 08:33 Aspirin 81 Mg Enteric Tablet PO 81 mg QAM TERESA Administration Atorvastatin Ca
--- NOTE | 2021-03-26 10:54 | PM.PNCARD ---
Progress Note: A&P Assessment and Plan (1) Atrial fibrillation with rapid ventricular response: Code(s): I48.91 - Unspecified atrial fibrillation Status: Acute Assessment and Plan: Heart rate well controlled at this point on metoprolol 25mg b.i.d and cardizem 360mg daily. Continue this regimen. BP is tolerating this reasonably well. Resume systemic anticoagulation as soon as possible when okay per Neurology. Given renal function she should be resumed on Xarelto 15 mg at bedtime. -once appropriate timing for re-initiation of anticoagulation confirmed by Neurology, she is stable from a cardiac perspective for discharge per hospitalist service. Plans for rehabilitation either inpatient or at home per primary service. (2) CHF (congestive heart failure): Code(s): I50.9 - Heart failure, unspecified Status: Acute Assessment and Plan: Stable, reasonably compensated. Acute renal failure hold off on triamterene hydrochlorothiazide. Continue lasix 40mg p.o. b.i.d. (3) Acute CVA (cerebrovascular accident): Code(s): I63.9 - Cerebral infarction, unspecified Status: Acute Assessment and Plan: Neurology following, but awaiting their recommendation on re-initiation of Xarelto. Stroke secondary to cardioembolic related to atrial fibrillation due to noncompliance with medications including systemic anticoagulation. Agree with initiation of statin therapy. She must remain compliant with medication particularly anticoagulation given stroke secondary to noncompliance. Patient understands and agrees. (4) Renal failure: Code(s): N19 - Unspecified kidney failure Status: Acute Assessment and Plan: Stable. Per primary service. (5) Dyslipidemia: Code(s): E78.5 - Hyperlipidemia, unspecified Status: Acute Assessment and Plan: Low-dose atorvastatin initiated 10 mg. Monitor LDL closely. (6) Insulin dependent diabetes mellitus: Status: Acute Assessment and Plan: Per primary service. Subjective Date/time seen: Date of service: 03/26/21 10:54 Interval history: Follow-up visit in this 76-year-old woman with: Chronic atrial fibrillation unfortunately with apparent cardioembolic stroke because of noncompliance with medication. Patient discontinued all of her medication including her anticoagulation several weeks ago. 03/25/2021: She is feeling better today. She does ambulated to the bathroom and back to bed right before I saw her. She says that she did well with this and her weakness she feels is improving. She denies any chest pain, shortness of breath, palpitations. Date of service 03/26/2021: Patient denies palpitation, chest pain or shortness of breath. She denies dizziness. Still somewhat weak with ambulation but has no other new complaints. Heart rate well controlled in atrial fibrillation on telemetry. Review of Systems Constitutional: Constitutional: Reports fatigue and Reports lethargy Eyes: Eyes: Reports no additional eye complaints ENT: Reports system reviewed and no additional complaints, except as documented Cardiovascular: Cardiovascular: Reports no additional cardiovascular complaints Respiratory: Respiratory: Reports no additional respiratory complaints Gastrointestinal: Gastrointestinal: Reports no additional gastrointestinal complaints Musculoskeletal: Musculoskeletal: Reports arthralgias Integumentary/Breasts: Skin/Breast: Reports system reviewed and no additional complaints, except as docu Neurologic: Reports as per HPI Endocrine: Endocrine: Reports no additional endocrine complaints and Reports fatigue Hematologic/Lymphatic: Hematologic/Lymphatic: Reports no additional hematologic/lymphatic complaints Allergic/Immunologic: Allergic/Immunologic: Reports no additional allergic/immunologic complaints Exam Const: General: comfortable and no acute distress Orientation/consciousness: patient oriented x3
[2021-03-26 11:02] LABS: Sodium 121 mmol/L (137-145)
[2021-03-26] MEDS: SODIUM CHLORIDE 1 GM TABLET PO ×2 (12:49→17:38)
[2021-03-26 13:09] LABS: Glucose Point of Care 431 mg/dl (65-105)
[2021-03-26 13:46] LABS: Heparin, Anti-XA <0.20 IU/mL
[2021-03-26] MEDS: RIVAROXABAN 15 MG TABLET PO (17:39)
[2021-03-26] MEDS: INSULIN ASPART (*BKC) 100 UNITS/ML 8 UNITS SUB-Q (17:42)
[2021-03-26 17:51] LABS: Glucose Point of Care 432 mg/dl (65-105)
[2021-03-26 19:18] LABS: Sodium 122 mmol/L (137-145)
[2021-03-26 20:21] LABS: Glucose Point of Care 497 mg/dl (65-105)
[2021-03-26] MEDS: NORTRIPTYLINE HCL 10 MG CAPSULE 30 MG PO (21:09)
[2021-03-26] MEDS: INSULIN ASPART (*BKC) 100 UNITS/ML 12 UNITS SUB-Q (21:28)
[2021-03-26 23:41] LABS: Glucose Point of Care 265 mg/dl (65-105)
[2021-03-27] VITALS (8 sets, daily range): BP systolic 106–126; BP diastolic 50–92; PULSE 64–105; RESP 12–20; TEMP 36.1–37.2; O2SAT 94–99
[2021-03-27 05:34] LABS: Basophils Percent Auto 0.2 % (0.2-1.2); Eosinophils Absolute Auto 0.2 K/mm3 (0-0.3); Eosinophils Percent Auto 2.1 % (0-4.4); Hematocrit 31.3 % (37.0-47.0); Hemoglobin 10.2 g/dL (12.0-15.0); Immature Granulocyte Absolute 0.05 K/mm3 (0.00-0.031); Immature Granulocyte Percent A 0.5 % (0-0.5); Lymphocytes Percent Auto 8.8 % (18.3-44.2); Mean Corpuscular HGB Conc 32.6 g/dl (32-36); Mean Corpuscular Hemoglobin 26.5 pg (26-34); Mean Corpuscular Volume 81.3 fl (80-100); Monocytes Absolute Auto 0.3 K/mm3 (0.1-0.6); Neutrophils Absolute Auto 7.8 K/mm3 (1.3-6.7); Neutrophils Percent Auto 85.4 % (45.5-73.1); Platelet Count Result 266 k/mm3 (150-375); Red Blood Count 3.85 M/mm3 (4.2-5.4); Red Cell Distribution Width 16.7 % (11.5-14.5); White Blood Count 9.1 K/mm3 (4.5-10.0)
[2021-03-27 05:48] LABS: Anion Gap 4 mmol/L (8-16); Blood Urea Nitrogen 44 mg/dL (7-17); Calcium 8.1 mg/dL (8.4-10.2); Carbon Dioxide 31 mmol/L (22-30); Chloride 92 mmol/L (98-107); Estimated CRCL calculation 35 ml/min; Estimated Glomerular Filt Rate 44; Glucose 193 mg/dL (65-110); Potassium 3.7 mmol/L (3.4-5.0); Sodium 127 mmol/L (137-145)
[2021-03-27] MEDS: LEVOTHYROXINE SODIUM 25 MCG TABLET PO (06:18)
--- NOTE | 2021-03-27 07:42 | PM.PNNEP ---
Progress Note: A&P Assessment and Plan (1) Hyponatremia syndrome: Code(s): E87.1 - Hypo-osmolality and hyponatremia Status: Acute Assessment and Plan: The patient has hyponatremia. TSH and cortisol are okay. Images look okay. She was on a thiazide and SSRI as an outpatient. Urine sodium is low. Most likely the hyponatremia is due to pre renal factors probably due to the heart and complicated by the Narcotics, thiazide and SSRI. 03/24 Na 126 03/25 Na 123 then 121 03/26 Na 124 [id number] (but ) 03/27 Na 127 Currently on fluid restriction of 800cc per day. She is volume overloaded so she is getting diuretics; I am giving salt tablets with the diuretics to keep the sodium from dropping from the diuretics. Once the sodium is above 130 I think she could be discharged (2) Acute CVA (cerebrovascular accident): Code(s): I63.9 - Cerebral infarction, unspecified Status: Acute Assessment and Plan: The patient has weakness on the left side. (3) CHF (congestive heart failure): Code(s): I50.9 - Heart failure, unspecified Status: Acute Assessment and Plan: Patient does not have a cardiomyopathy. Atrial fibrillation can reduced cardiac output however. (4) Hypertension: Code(s): I10 - Essential (primary) hypertension Status: Chronic Assessment and Plan: Systolic is 106. She is on diltiazem, hydralazine, metoprolol. (5) Atrial fibrillation with rapid ventricular response: Code(s): I48.91 - Unspecified atrial fibrillation Status: Acute Assessment and Plan: Heart rate is well controlled (6) Rheumatoid arthritis: Code(s): M06.9 - Rheumatoid arthritis, unspecified Status: Acute Assessment and Plan: She is on methotrexate and hydrocodone for this. (7) Dyslipidemia: Code(s): E78.5 - Hyperlipidemia, unspecified Status: Acute Assessment and Plan: She is on medications for this (8) Insulin dependent diabetes mellitus: Status: Acute Assessment and Plan: She is on sliding scale insulin Subjective Date/time seen: 03/27/21 07:42 Interval history: Regine is feeling well today. She slept okay last night. On fluid restriction. Exam Narrative: WDWN in NAD skin no rash or subQ nodules head ncat lungs clear bilaterally cor irreg no rub abd BS+ nontender and soft ext 1+ bilateral edema. Objective Data Vital Signs Vital Signs: Vital Signs - 24 hr 03/26/21 08:00 03/26/21 08:45 03/26/21 12:00 Temperature 36.2 C L Pulse Rate 82 73 71 Respiratory Rate 18 Blood Pressure 125/58 L 108/62 Pulse Oximetry 96 99 03/26/21 16:00 03/26/21 20:00 03/26/21 20:32 Temperature 36.3 C L 36.6 C Pulse Rate 70 69 66 Respiratory Rate 16 20 Blood Pressure 128/47 L 116/44 L Pulse Oximetry 99 95 95 03/26/21 21:09 03/26/21 23:45 03/27/21 00:00 Temperature 36.6 C Pulse Rate 70 73 73 Respiratory Rate 20 Blood Pressure 110/60 Pulse Oximetry 97 03/27/21 04:00 Temperature 36.6 C Pulse Rate 68 Respiratory Rate 20 Blood Pressure 106/50 L Pulse Oximetry 95 Intake/Output Intake/Output: Intake & Output 03/24/21 03/25/21 03/26/21 03/27/21 23:59 23:59 23:59 23:59 Intake Total 1210 1060 920 Output Total 8490 1364 5639 1100 Balance -2865 -1690 -2555 -1100 Meds/Results Medications: Active Medications Generic Name Dose Route Start Last Admin Trade Name Freq PRN Reason Stop Dose Admin Hydrocodone Bitart/Acetaminophen 1 tab 03/21/21 21:27 Hydrocodone/Acetaminophen (*Crx) 10-325 Mg Tablet PO Q8H PRN Pain Rated 4-6 Aspirin 81 mg 03/22/21 09:00 03/26/21 08:33 Aspirin 81 Mg Enteric Tablet PO 81 mg QAM TERESA Administration Atorvastatin Calcium 10 mg 03/25/21 09:00 03/26/21 08:33 Atorvastatin 10 Mg Tablet PO 10 mg DAILY TERESA Administration Cyanocobalamin 2,500 mcg 03/22/21 09:00 03/26/21 08:3
[2021-03-27] MEDS: METHOTREXATE 2.5 MG TAB (*CHEMO) 12.5 MG PO (08:14)
[2021-03-27] MEDS: CHOLECALCIFEROL 1,000 UNITS TABLET 5000 UNITS PO (08:14)
[2021-03-27] MEDS: dilTIAZem HCL CD 180 MG CAP.ER.24H 360 MG PO (08:15)
[2021-03-27] MEDS: hydrALAZINE 12.5 MG TABLET PO ×2 (08:15→17:01)
[2021-03-27] MEDS: ASPIRIN 81 MG ENTERIC TABLET PO (08:15)
[2021-03-27] MEDS: NORTRIPTYLINE HCL 10 MG CAPSULE 20 MG PO ×2 (08:15→12:33)
[2021-03-27] MEDS: ATORVASTATIN 10 MG TABLET PO (08:16)
[2021-03-27] MEDS: CYANOCOBALAMIN 500 MCG TABLET 2500 MCG PO (08:16)
[2021-03-27] MEDS: hydrALAZINE HCL 25 MG TABLET PO ×2 (08:16→17:01)
[2021-03-27] MEDS: ERGOCALCIFEROL 50,000 UNIT CAPSULE 50000 UNITS PO (08:16)
[2021-03-27] MEDS: PREGABALIN (*CRX) 50 MG CAPSULE 200 MG PO ×2 (08:16→17:00)
[2021-03-27] MEDS: DULoxetine HCL 60 MG CAPSULE.DR PO (08:16)
[2021-03-27] MEDS: PYRIDOXINE HCL 25 MG TABLET PO (08:17)
[2021-03-27] MEDS: FENOFIBRATE,MICRONIZED 48 MG TABLET PO (08:17)
[2021-03-27] MEDS: METOPROLOL TARTRATE 25 MG TABLET PO ×2 (08:17→21:49)
[2021-03-27] MEDS: FOLIC ACID 1 MG TABLET PO (08:18)
[2021-03-27] MEDS: FUROSEMIDE 20 MG TABLET PO ×2 (08:20→17:00)
[2021-03-27] MEDS: SODIUM CHLORIDE 1 GM TABLET 2 GM PO ×2 (08:20→17:01)
[2021-03-27] MEDS: INSULIN ASPART (*BKC) 100 UNITS/ML SUB-Q ×3 (08:20→17:01)
[2021-03-27 08:23] LABS: Glucose Point of Care 299 mg/dl (65-105)
[2021-03-27 08:57] LABS: Osmolality, Urine 220 mOsm/kg (50-1200)
[2021-03-27 11:51] LABS: Magnesium 2.1 mg/dL (1.6-2.3)
--- NOTE | 2021-03-27 12:22 | PCDIET ---
Weekly nutritional screen. Patient is tolerating current diet with adequate intake. No weight loss reported. No nutritional needs at this time.
[2021-03-27 12:42] LABS: Glucose Point of Care 324 mg/dl (65-105)
[2021-03-27 16:53] LABS: Sodium 127 mmol/L (137-145)
[2021-03-27] MEDS: RIVAROXABAN 15 MG TABLET PO (17:01)
[2021-03-27 17:07] LABS: Glucose Point of Care 258 mg/dl (65-105)
--- NOTE | 2021-03-27 17:34 | PM.IMPN ---
Progress Note: A&P Assessment and Plan (1) Hyponatremia syndrome: Code(s): E87.1 - Hypo-osmolality and hyponatremia Status: Acute Assessment and Plan: Hyponatremia has been present since admission. Likely side effect of thiazide diuretic and SSRI. There may be an element of ADH responsiveness due to appropriate ADH release in the setting of afib with RVR. TSH and cortisol within normal limits. Serum Na still at 127 today. Increase water restriction 800ccs per day, salt tablets. We will avoid thiazides as an outpatient. Recheck serum Na tomorrow. (2) CHF (congestive heart failure): Code(s): I50.9 - Heart failure, unspecified Status: Acute Assessment and Plan: Acute on chronic diastolic heart failure with preserved ejection fraction 50-55%. currently on IV lasix. She is diuresing well. No congestive symptoms. (3) Acute CVA (cerebrovascular accident): Code(s): I63.9 - Cerebral infarction, unspecified Status: Acute Assessment and Plan: Ilely related to atrial fibrillation in the setting of non compliance. REstarted rivaroxaban for prevention (4) Left-sided weakness: Code(s): R53.1 - Weakness Status: Acute Assessment and Plan: Improving with daily exercise. Likely secondary to acute CVA in the setting of thromboembolic event due to atrial fibrillation in a patient non compliant with anticoagulation regimen. Head MRI is contraindicated. Repeat CT brain is unrevealing. Resume rivaroxaban today after discussion with neurology. Jerk like movements likely related to hyponatremia. (5) Hypertension: Code(s): I10 - Essential (primary) hypertension Status: Chronic Assessment and Plan: Blood pressures were reviewed and they have been reasonable with isolated diastolic elevation. Continue antihypertensives and monitor closely for now. Continue metoprolol for rate control. due to mild elevation of creatinine, home DUNIA and diuretics have been on hold. (6) Insulin dependent diabetes mellitus: Status: Acute Assessment and Plan: Patient has an insulin pump. follow up with tobacco prevention health educator for possible dysfunction. She has been experiencing hyperglycemia episodes, most recent above 400 on 03/26/2021. Patient on insulin sliding scale. Blood sugar is better this morning at 193. Continue monitoring. (7) Atrial fibrillation with rapid ventricular response: Code(s): I48.91 - Unspecified atrial fibrillation Status: Acute Assessment and Plan: rate controlled with cardizem and metoprolol Subjective Date/time seen: 03/27/21 09:00 S: Patient examined at the bedside. Reports jerk like movements of hands Review of Systems Review of Systems: All systems reviewed & are unremarkable except as noted in HPI and below Constitutional: Constitutional: Reports no additional constitutional complaints, Reports fatigue and Reports weakness Cardiovascular: Cardiovascular: Reports no additional cardiovascular complaints, Denies chest pain and Denies dyspnea Respiratory: Respiratory: Reports no additional respiratory complaints and Denies dyspnea Gastrointestinal: Gastrointestinal: Reports no additional gastrointestinal complaints, Denies abdominal pain, Denies diarrhea and Denies vomiting Genitourinary: Genitourinary: Reports no additional female genitourinary complaints Musculoskeletal: Musculoskeletal: Denies numbness Integumentary/Breasts: Skin/Breast: Reports system reviewed and no additional complaints, except as docu Neurologic: Denies Abnormal speech present, Denies confusion, Denies numbness and Reports weakness Comments: jerk like movements of hands. Psychiatric: Psychiatric: Reports no additional psychiatric complaints, Denies anxiety, Denies confusion and Denies depression Endocrine: Endocrine: Reports fatigue Exam Narrative: General: Well-developed female sitting up in bed no distress. Weight: 78.85= kg. BMI: 31 HEENT: Jasmin
[2021-03-27 20:49] LABS: Glucose Point of Care 260 mg/dl (65-105)
[2021-03-27] MEDS: NORTRIPTYLINE HCL 10 MG CAPSULE 30 MG PO (21:49)
[2021-03-27] MEDS: INSULIN GLARGINE (*BKC) 100 UNITS/ML 10 UNITS SUB-Q (22:55)
[2021-03-27] MEDS: INSULIN ASPART (*BKC) 100 UNITS/ML 6 UNITS SUB-Q (22:56)
--- NOTE | 2021-03-27 23:29 | PC.NURSE ---
This patient, Regine Mittal, was transferred to [ [id number]] on 03/27/21 at 2315. Personal belongings sent with patient. Report given to [Migdalia CONNORS ]. Appropriate documentation sent with patient.
[2021-03-27 23:41] LABS: Glucose Point of Care 244 mg/dl (65-105)
[2021-03-28] VITALS (9 sets, daily range): BP systolic 118–131; BP diastolic 58–89; PULSE 60–125; RESP 16–18; TEMP 36.3–37.1; O2SAT 94–98
[2021-03-28 04:39] LABS: Albumin 3.1 g/dL (3.8-4.8); Alpha 1 Globulin 0.3 g/dL (0.2-0.3); Alpha 2 Globulin 0.8 g/dL (0.5-0.9); Beta 1 Globulin 0.4 g/dL (0.4-0.6); Gamma Globulin 0.6 g/dL (0.8-1.7); Interpretation Consistent with; Protein, Total 5.6 g/dL (6.1-8.1)
[2021-03-28 05:24] LABS: Basophils Percent Auto 0.2 % (0.2-1.2); Eosinophils Absolute Auto 0.3 K/mm3 (0-0.3); Eosinophils Percent Auto 2.8 % (0-4.4); Hematocrit 31.3 % (37.0-47.0); Hemoglobin 10.1 g/dL (12.0-15.0); Immature Granulocyte Absolute 0.03 K/mm3 (0.00-0.031); Immature Granulocyte Percent A 0.3 % (0-0.5); Lymphocytes Absolute Auto 0.87 K/mm3 (0.9-3.2); Lymphocytes Percent Auto 9.2 % (18.3-44.2); Mean Corpuscular HGB Conc 32.3 g/dl (32-36); Mean Corpuscular Hemoglobin 26.1 pg (26-34); Mean Corpuscular Volume 80.9 fl (80-100); Mean Platelet Volume 10.2 fl (7.4-10.4); Monocytes Absolute Auto 0.2 K/mm3 (0.1-0.6); Monocytes Percent Auto 2.1 % (2.6-8.5); Neutrophils Percent Auto 85.4 % (45.5-73.1); Platelet Count Result 245 k/mm3 (150-375); Red Blood Count 3.87 M/mm3 (4.2-5.4); Red Cell Distribution Width 16.6 % (11.5-14.5); White Blood Count 9.4 K/mm3 (4.5-10.0)
[2021-03-28 05:45] LABS: Albumin Level 3.1 g/dL (3.5-5.1); Anion Gap 5 mmol/L (8-16); Blood Urea Nitrogen 40 mg/dL (7-17); Calcium 8.2 mg/dL (8.4-10.2); Carbon Dioxide 27 mmol/L (22-30); Chloride 97 mmol/L (98-107); Estimated CRCL calculation 42 ml/min; Estimated Glomerular Filt Rate 54; Glucose 167 mg/dL (65-110); Magnesium 2.3 mg/dL (1.6-2.3); Phosphorus 3.3 mg/dL (2.5-4.5); Potassium 3.9 mmol/L (3.4-5.0); Sodium 129 mmol/L (137-145)
[2021-03-28] MEDS: LEVOTHYROXINE SODIUM 25 MCG TABLET PO (06:17)
[2021-03-28 06:37] LABS: Glucose Point of Care 167 mg/dl (65-105)
--- NOTE | 2021-03-28 08:33 | PM.PNCARD ---
Progress Note: A&P Assessment and Plan (1) Atrial fibrillation with rapid ventricular response: Code(s): I48.91 - Unspecified atrial fibrillation Status: Acute Assessment and Plan: Rate control strategy with metoprolol 25mg b.i.d and cardizem 360mg daily. Increase metoprolol to 50mg b.i.d. and monitor BP closely. Anticoagulation has been resumed by hospitalist service per recommendations from Dr. Pete. Plans for rehabilitation either inpatient or at home per primary service. (2) CHF (congestive heart failure): Code(s): I50.9 - Heart failure, unspecified Status: Acute Assessment and Plan: Stable, reasonably compensated. Acute renal failure hold off on triamterene hydrochlorothiazide. Continue lasix 20mg p.o. b.i.d. (3) Acute CVA (cerebrovascular accident): Code(s): I63.9 - Cerebral infarction, unspecified Status: Acute Assessment and Plan: Neurology following, Per the recommendations okay to restart Xarelto. Stroke secondary to cardioembolic related to atrial fibrillation due to noncompliance with medications including systemic anticoagulation. Agree with initiation of statin therapy. She must remain compliant with medication particularly anticoagulation given stroke secondary to noncompliance. Patient understands and agrees. (4) Renal failure: Code(s): N19 - Unspecified kidney failure Status: Acute Assessment and Plan: Stable. Per primary service. (5) Dyslipidemia: Code(s): E78.5 - Hyperlipidemia, unspecified Status: Acute Assessment and Plan: Low-dose atorvastatin initiated 10 mg. Monitor LDL closely. (6) Insulin dependent diabetes mellitus: Status: Acute Assessment and Plan: Per primary service. Subjective Date/time seen: 03/28/21 08:33 Cardiology follow up for afib, CHF Date of service 03/28/2021: She is feeling okay today. She remains hyponatremic. Had some tachycardia this morning with rates in the 140s to 150s. Currently on telemetry her rate is 110- 125. She denies any palpitations, chest pain, shortness of breath. Review of Systems Constitutional: Constitutional: Reports fatigue and Reports lethargy Eyes: Eyes: Reports no additional eye complaints ENT: Reports system reviewed and no additional complaints, except as documented Cardiovascular: Cardiovascular: Reports no additional cardiovascular complaints Respiratory: Respiratory: Reports no additional respiratory complaints Gastrointestinal: Gastrointestinal: Reports no additional gastrointestinal complaints Musculoskeletal: Musculoskeletal: Reports arthralgias Integumentary/Breasts: Skin/Breast: Reports system reviewed and no additional complaints, except as docu Neurologic: Reports as per HPI Endocrine: Endocrine: Reports no additional endocrine complaints and Reports fatigue Hematologic/Lymphatic: Hematologic/Lymphatic: Reports no additional hematologic/lymphatic complaints Allergic/Immunologic: Allergic/Immunologic: Reports no additional allergic/immunologic complaints Exam Const: General: comfortable and no acute distress Orientation/consciousness: patient oriented x3 Other: Pleasant elderly white female. Alert and oriented. Pleasant and cooperative. No distress. HENMT: Head: normal to inspection Ears: hearing grossly normal bilaterally Mouth: Yes moist mucous membranes Eyes: Sclera: sclerae normal Pupils: Equal, round and reactive pupils present Neck: Neck: supple and no JVD Resp: Effort & Inspection: normal respiratory effort Auscultation: clear to auscultation bilaterally Cardio: Jugular venous distension: no JVD Rate: tachycardic Rhythm: abnormal rhythm irregularly irregular Heart sounds: Murmur heart sound present systolic holo Peripheral pulses: Peripheral pulses 2+ throughout GI: Auscultation: normal bowel sounds Skin: General skin exam: normal color and no rashes or lesions noted Neuro:
[2021-03-28] MEDS: SODIUM CHLORIDE 1 GM TABLET 2 GM PO ×2 (09:17→16:29)
[2021-03-28] MEDS: FOLIC ACID 1 MG TABLET PO (09:18)
[2021-03-28] MEDS: hydrALAZINE 12.5 MG TABLET PO ×2 (09:18→16:28)
[2021-03-28] MEDS: ASPIRIN 81 MG ENTERIC TABLET PO (09:18)
[2021-03-28] MEDS: dilTIAZem HCL CD 180 MG CAP.ER.24H 360 MG PO (09:18)
[2021-03-28] MEDS: CHOLECALCIFEROL 1,000 UNITS TABLET 5000 UNITS PO (09:18)
[2021-03-28] MEDS: NORTRIPTYLINE HCL 10 MG CAPSULE 20 MG PO ×2 (09:18→11:45)
[2021-03-28] MEDS: PYRIDOXINE HCL 25 MG TABLET PO (09:18)
[2021-03-28] MEDS: CYANOCOBALAMIN 500 MCG TABLET 2500 MCG PO (09:19)
[2021-03-28] MEDS: FUROSEMIDE 20 MG TABLET PO ×2 (09:19→16:28)
[2021-03-28] MEDS: DULoxetine HCL 60 MG CAPSULE.DR PO (09:19)
[2021-03-28] MEDS: FENOFIBRATE NANOCRYSTALLIZED 145 MG TABLET PO (09:19)
[2021-03-28] MEDS: ATORVASTATIN 10 MG TABLET PO (09:19)
[2021-03-28] MEDS: hydrALAZINE HCL 25 MG TABLET PO ×2 (09:20→16:28)
[2021-03-28] MEDS: PREGABALIN (*CRX) 50 MG CAPSULE 200 MG PO ×2 (09:24→16:28)
--- NOTE | 2021-03-28 09:28 | WPDNEUROPN ---
Progress Note: A&P Additional Plan considering the evaluation as discussed above she will benefit from the rehab therapy and continuation the medication as such Subjective Date/time seen: 03/28/21 09:28 76 years old lady was admitted to the hospital for the complaints of left-sided weakness in addition to ongoing history of 1. Paroxysmal atrial fibrillation 2. Insulin-dependent diabetes mellitus 3. Hypertension 4. Hypothyroidism and 5. Rheumatoid arthritis evaluation up until now as documented negative CT scan of the head without evidence of any bleed except mild periventricular and subcortical hypodensity related to small vessel ischemic disease and prominence of sulci and ventricles related to cerebral atrophy but there is no evidence of normal pressure hydrocephalus, CTA of the brain and carotid revealed no acute carotid or intracranial findings and bilateral carotid bulbs with 0% stenosis also there is no evidence of any aneurysm, echocardiogram documented moderately increased left ventricular wall thickness but left atrial chamber dimension is moderately enlarged with mild aortic valve mitral valve sclerosis and regurgitation as well as tricuspid valve her renal ultrasound is consistent with medical renal disease with increased parenchymal echogenicity but no hydronephrosis, routine blood studies are consistent with mild hyponatremia with mild hyperglycemia and BUN of 40 and creatinine of 1.0 and estimated GFR 54, patient has been seen by the commercial internship and they have suggested to use metoprolol 25 mg b.i.d. and Cardizem 360 mg daily to control the rate and increased the metoprolol to50mg b.i.d. with monitoring of the blood pressure and we have also resume the anticoagulation because the underlying atrial enlargement, patient has been continued on Lasix 20 mg twice a day because of the heart failure and has also been started on low-dose atorvastatin 10 mg for the LDL Review of Systems Review of Systems: All systems reviewed & are unremarkable except as noted in HPI and below Exam Narrative: patient remains awake alert and cooperative in no obvious acute distress head normocephalic with no cranial bruit ear nose throat examination normal neck is supple with no cervical bruit heart regular lungs clear abdomen is soft neurological is she is awake alert follows instructions and continues to have the neurological deficit as such Objective Data Vital Signs Vital Signs: Vital Signs - 24 hr 03/27/21 12:00 03/27/21 16:00 03/27/21 20:00 Temperature 37.2 C 36.7 C 36.1 C L Pulse Rate 74 64 92 Respiratory Rate 12 12 16 Blood Pressure 125/92 H 116/86 113/54 L Pulse Oximetry 94 99 96 03/27/21 21:49 03/27/21 23:28 03/28/21 00:00 Temperature 36.1 C L Pulse Rate 72 75 77 Respiratory Rate 17 Blood Pressure 126/57 L Pulse Oximetry 99 03/28/21 03:40 03/28/21 04:00 03/28/21 08:00 Temperature 36.3 C L 37.1 C Pulse Rate 88 79 112 H Respiratory Rate 17 16 Blood Pressure 124/58 L 123/74 Pulse Oximetry 97 95 Intake/Output Intake/Output: Intake & Output 03/25/21 03/26/21 03/27/21 03/28/21 23:59 23:59 23:59 23:59 Intake Total 1060 920 360 75 Output Total 2750 6319 2200 720 Balance -1690 -2555 -1840 -645 Meds/Results Medications: Active Medications Generic Name Dose Route Start Last Admin Trade Name Freq PRN Reason Stop Dose Admin Hydrocodone Bitart/Acetaminophen 1 tab 03/21/21 21:27 Hydrocodone/Acetaminophen (*Crx) 10-325 Mg Tablet PO Q8H PRN Pain Rated 4-6 Aspirin 81 mg 03/22/21 09:00 03/28/21 09:18 Aspirin 81 Mg Enteric Tablet PO 81 mg QAM TERESA Administration Atorvastatin Calcium 10 mg 03/25/21 09:00 03/28/21 09:19 Atorvastatin 10 Mg Tablet PO 10 mg DAILY TERESA Administration Cyanocobalamin 2,500 mcg 03/22/21 09:00 03/28/21 09:19 Cyanocobalamin 500 Mcg Tablet PO 04/21/21 08:59 2,500 mcg DAILY TERESA Administration Dextrose 12.5 gm 03/21/21 21:24 Dextrose 50% 25
--- NOTE | 2021-03-28 09:34 | PM.PNNEP ---
Progress Note: A&P Assessment and Plan (1) Hyponatremia syndrome: Code(s): E87.1 - Hypo-osmolality and hyponatremia Status: Acute Assessment and Plan: The patient has hyponatremia. TSH and cortisol are okay. Images look okay. She was on a thiazide and SSRI as an outpatient. Urine sodium is low. Most likely the hyponatremia is due to pre renal factors probably due to the heart and complicated by the Narcotics, thiazide and SSRI. 03/24 Na 126 03/25 Na 123 then 121 03/26 Na 124 [id number] (but [id number]) 03/27 Na 127 03/28 Na 129 Currently on fluid restriction of 800cc per day. She is volume overloaded so she is getting diuretics; I am giving salt tablets with the diuretics to keep the sodium from dropping from the diuretics. Okay for discharge from the kidney standpoint. She has a few other issues to work out 1st though. Discussed with Dr. Luz (2) Acute CVA (cerebrovascular accident): Code(s): I63.9 - Cerebral infarction, unspecified Status: Acute Assessment and Plan: The patient has weakness on the left side. (3) CHF (congestive heart failure): Code(s): I50.9 - Heart failure, unspecified Status: Acute Assessment and Plan: Patient does not have a cardiomyopathy. Atrial fibrillation can reduced cardiac output however. She had V-tach. (4) Hypertension: Code(s): I10 - Essential (primary) hypertension Status: Chronic Assessment and Plan: Systolic is under good control. She is on diltiazem, hydralazine, metoprolol. (5) Atrial fibrillation with rapid ventricular response: Code(s): I48.91 - Unspecified atrial fibrillation Status: Acute Assessment and Plan: Heart rate is well controlled (6) Rheumatoid arthritis: Code(s): M06.9 - Rheumatoid arthritis, unspecified Status: Acute Assessment and Plan: She is on methotrexate and hydrocodone for this. (7) Dyslipidemia: Code(s): E78.5 - Hyperlipidemia, unspecified Status: Acute Assessment and Plan: She is on medications for this (8) Insulin dependent diabetes mellitus: Status: Acute Assessment and Plan: She is on sliding scale insulin Subjective Date/time seen: 03/28/21 09:34 Interval history: Regine is feeling well today. She slept okay last night. Eating some breakfast. On fluid restriction. Exam Narrative: WDWN in NAD skin no rash head ncat lungs clear to auscultation cor irreg no rub abd BS+ nontender and soft ext 1+ bilateral edema. Objective Data Vital Signs Vital Signs: Vital Signs - 24 hr 03/27/21 12:00 03/27/21 16:00 03/27/21 20:00 Temperature 37.2 C 36.7 C 36.1 C L Pulse Rate 74 64 92 Respiratory Rate 12 12 16 Blood Pressure 125/92 H 116/86 113/54 L Pulse Oximetry 94 99 96 03/27/21 21:49 03/27/21 23:28 03/28/21 00:00 Temperature 36.1 C L Pulse Rate 72 75 77 Respiratory Rate 17 Blood Pressure 126/57 L Pulse Oximetry 99 03/28/21 03:40 03/28/21 04:00 03/28/21 08:00 Temperature 36.3 C L 37.1 C Pulse Rate 88 79 112 H Respiratory Rate 17 16 Blood Pressure 124/58 L 123/74 Pulse Oximetry 97 95 Intake/Output Intake/Output: Intake & Output 03/25/21 03/26/21 03/27/21 03/28/21 23:59 23:59 23:59 23:59 Intake Total 1060 920 360 75 Output Total 2750 3475 2200 720 Balance -1690 -2555 -1840 -645 Meds/Results Medications: Active Medications Generic Name Dose Route Start Last Admin Trade Name Freq PRN Reason Stop Dose Admin Hydrocodone Bitart/Acetaminophen 1 tab 03/21/21 21:27 Hydrocodone/Acetaminophen (*Crx) 10-325 Mg Tablet PO Q8H PRN Pain Rated 4-6 Aspirin 81 mg 03/22/21 09:00 03/28/21 09:18 Aspirin 81 Mg Enteric Tablet PO 81 mg QAM TERESA Administration Atorvastatin Calcium 10 mg 03/25/21 09:00 03/28/21 09:19 Atorvastatin 10 Mg Tablet PO 10 mg DAILY TERESA Administration Cyanocobalamin
--- NOTE | 2021-03-28 11:43 | PM.IMPN ---
Progress Note: A&P Assessment and Plan (1) Hyponatremia syndrome: Code(s): E87.1 - Hypo-osmolality and hyponatremia Status: Acute Assessment and Plan: Hyponatremia is improving slowly with water restriction. Na 129 today. Repeat at noon. Likely side effect of thiazide diuretic and SSRI. There may be an element of ADH responsiveness due to appropriate ADH release in the setting of afib with RVR. TSH and cortisol within normal limits. Serum Na still at 127 today. Increase water restriction 800ccs per day, salt tablets. We will avoid thiazides as an outpatient. Recheck serum Na tomorrow. (2) CHF (congestive heart failure): Code(s): I50.9 - Heart failure, unspecified Status: Acute Assessment and Plan: Acute on chronic diastolic heart failure with preserved ejection fraction 50-55%. currently on IV lasix. She is diuresing well. No congestive symptoms. (3) Acute CVA (cerebrovascular accident): Code(s): I63.9 - Cerebral infarction, unspecified Status: Acute Assessment and Plan: Likely related to atrial fibrillation in the setting of non compliance. Continue rivaroxaban for prevention (4) Left-sided weakness: Code(s): R53.1 - Weakness Status: Acute Assessment and Plan: Improving with daily exercise. Likely secondary to acute CVA in the setting of thromboembolic event due to atrial fibrillation in a patient non compliant with anticoagulation regimen. Head MRI is contraindicated. Repeat CT brain is unrevealing. Resume rivaroxaban today after discussion with neurology. Jerk like movements likely related to hyponatremia. (5) Hypertension: Code(s): I10 - Essential (primary) hypertension Status: Chronic Assessment and Plan: Blood pressures were reviewed and they have been reasonable with isolated diastolic elevation. Continue antihypertensives and monitor closely for now. Continue metoprolol for rate control. due to mild elevation of creatinine, home DUNIA and diuretics have been on hold. (6) Insulin dependent diabetes mellitus: Status: Acute Assessment and Plan: Patient has an insulin pump. follow up with railroad yard worker for possible dysfunction. She has been experiencing hyperglycemia episodes, most recent above 400 on 03/26/2021. Patient on insulin sliding scale. Blood sugar is better this morning at 193. Continue monitoring. (7) Atrial fibrillation with rapid ventricular response: Code(s): I48.91 - Unspecified atrial fibrillation Status: Acute Assessment and Plan: Patient had a run of supraventricular tachycardia in the 150s this AM. Per cardiology, metoprolol was increased to 50 mg PO BID. Subjective Date/time seen: 03/28/21 08:43 Interval history: S: Patient was examined at the bedside. She slept well last night and her appetite is robust. she is making some progress with PT and denies any complaints. Review of Systems Review of Systems: All systems reviewed & are unremarkable except as noted in HPI and below Constitutional: Constitutional: Reports no additional constitutional complaints, Reports fatigue and Reports weakness Cardiovascular: Cardiovascular: Reports no additional cardiovascular complaints, Denies chest pain and Denies dyspnea Respiratory: Respiratory: Reports no additional respiratory complaints and Denies dyspnea Gastrointestinal: Gastrointestinal: Reports no additional gastrointestinal complaints, Denies abdominal pain, Denies diarrhea and Denies vomiting Genitourinary: Genitourinary: Reports no additional female genitourinary complaints Musculoskeletal: Musculoskeletal: Denies numbness Integumentary/Breasts: Skin/Breast: Reports system reviewed and no additional complaints, except as docu Neurologic: Denies Abnormal speech present, Denies confusion, Denies numbness and Reports weakness Psychiatric: Psychiatric: Reports no additional psychiatric complaints, Denies anxiety, Denies confusion an
[2021-03-28 11:44] LABS: Glucose Point of Care 371 mg/dl (65-105)
[2021-03-28] MEDS: METOPROLOL TARTRATE 50 MG TAB PO ×2 (11:45→20:41)
[2021-03-28] MEDS: INSULIN ASPART (*BKC) 100 UNITS/ML SUB-Q ×2 (11:47→16:29)
--- NOTE | 2021-03-28 14:15 | PM.EVENT ---
Event Note Event Note Event Note: RN contacted me for slurred speech. Patient was examined at the bedside. S: Feels very tired. Not sleeping much at night due to environmental noise O: VS: BP 118/70, HR 117, T 18, Temp 98.8F, O2 sat 97%. Cranial nerves: no facial deficit. Patient is asthenic A: LAbs reviewed. K, Ca, mMag WNL Dx: sleep deprivation. P: Best rest Keep comfortable Do not check vitals from 11PM to 5 AM.
[2021-03-28 16:20] LABS: Glucose Point of Care 314 mg/dl (65-105)
[2021-03-28] MEDS: RIVAROXABAN 20 MG TABLET PO (16:29)
[2021-03-28] MEDS: NORTRIPTYLINE HCL 10 MG CAPSULE 30 MG PO (20:42)
[2021-03-28 20:52] LABS: Glucose Point of Care 418 mg/dl (65-105)
[2021-03-28] MEDS: INSULIN GLARGINE (*BKC) 100 UNITS/ML 10 UNITS SUB-Q (21:10)
[2021-03-28] MEDS: INSULIN ASPART (*BKC) 100 UNITS/ML 6 UNITS SUB-Q (21:11)
[2021-03-29] VITALS (10 sets, daily range): BP systolic 107–139; BP diastolic 45–81; PULSE 50–112; RESP 16–20; TEMP 36.1–37.1; O2SAT 97–99
[2021-03-29 03:49] LABS: Glucose Point of Care 215 mg/dl (65-105)
[2021-03-29 05:47] LABS: Basophils Percent Auto 0.1 % (0.2-1.2); Eosinophils Absolute Auto 0.1 K/mm3 (0-0.3); Hematocrit 33.3 % (37.0-47.0); Hemoglobin 10.4 g/dL (12.0-15.0); Immature Granulocyte Absolute 0.03 K/mm3 (0.00-0.031); Immature Granulocyte Percent A 0.4 % (0-0.5); Lymphocytes Absolute Auto 0.61 K/mm3 (0.9-3.2); Lymphocytes Percent Auto 8.6 % (18.3-44.2); Mean Corpuscular HGB Conc 31.2 g/dl (32-36); Mean Corpuscular Hemoglobin 26.7 pg (26-34); Mean Corpuscular Volume 85.4 fl (80-100); Mean Platelet Volume 10.6 fl (7.4-10.4); Monocytes Absolute Auto 0.1 K/mm3 (0.1-0.6); Neutrophils Absolute Auto 6.2 K/mm3 (1.3-6.7); Neutrophils Percent Auto 87.9 % (45.5-73.1); Platelet Count Result 202 k/mm3 (150-375); Red Cell Distribution Width 17.2 % (11.5-14.5); White Blood Count 7.1 K/mm3 (4.5-10.0)
[2021-03-29] MEDS: LEVOTHYROXINE SODIUM 25 MCG TABLET PO (05:54)
[2021-03-29 06:24] LABS: Albumin Level 3.1 g/dL (3.5-5.1); Anion Gap 4 mmol/L (8-16); Blood Urea Nitrogen 33 mg/dL (7-17); Calcium 8.2 mg/dL (8.4-10.2); Carbon Dioxide 32 mmol/L (22-30); Chloride 97 mmol/L (98-107); Estimated CRCL calculation 42 ml/min; Estimated Glomerular Filt Rate 54; Glucose 225 mg/dL (65-110); Phosphorus 3.2 mg/dL (2.5-4.5); Potassium 3.6 mmol/L (3.4-5.0); Sodium 133 mmol/L (137-145)
[2021-03-29 07:46] LABS: Glucose Point of Care 228 mg/dl (65-105)
[2021-03-29] MEDS: INSULIN ASPART (*BKC) 100 UNITS/ML SUB-Q ×3 (07:51→16:26)
[2021-03-29] MEDS: hydrALAZINE HCL 25 MG TABLET PO ×2 (08:20→16:30)
[2021-03-29] MEDS: hydrALAZINE 12.5 MG TABLET PO ×2 (08:20→16:30)
[2021-03-29] MEDS: CYANOCOBALAMIN 500 MCG TABLET 2500 MCG PO (08:20)
[2021-03-29] MEDS: METOPROLOL TARTRATE 50 MG TAB PO ×2 (08:21→19:49)
[2021-03-29] MEDS: NORTRIPTYLINE HCL 10 MG CAPSULE 20 MG PO ×2 (08:22→11:50)
[2021-03-29] MEDS: CHOLECALCIFEROL 1,000 UNITS TABLET 5000 UNITS PO (08:22)
[2021-03-29] MEDS: FOLIC ACID 1 MG TABLET PO (08:22)
[2021-03-29] MEDS: FENOFIBRATE,MICRONIZED 48 MG TABLET PO (08:23)
[2021-03-29] MEDS: DULoxetine HCL 60 MG CAPSULE.DR PO (08:23)
[2021-03-29] MEDS: dilTIAZem HCL CD 180 MG CAP.ER.24H 360 MG PO (08:23)
[2021-03-29] MEDS: PYRIDOXINE HCL 25 MG TABLET PO (08:23)
[2021-03-29] MEDS: ATORVASTATIN 10 MG TABLET PO (08:23)
[2021-03-29] MEDS: ASPIRIN 81 MG ENTERIC TABLET PO (08:23)
[2021-03-29] MEDS: FUROSEMIDE 20 MG TABLET PO ×2 (08:23→16:30)
[2021-03-29] MEDS: SODIUM CHLORIDE 1 GM TABLET 2 GM PO ×2 (08:23→16:30)
[2021-03-29] MEDS: PREGABALIN (*CRX) 50 MG CAPSULE 200 MG PO ×2 (08:25→16:30)
--- NOTE | 2021-03-29 09:36 | PM.PNCARD ---
Progress Note: A&P Assessment and Plan (1) Atrial fibrillation with rapid ventricular response: Code(s): I48.91 - Unspecified atrial fibrillation Status: Acute Assessment and Plan: Rate control strategy. Continue current regimen. Anticoagulation has been resumed by hospitalist service per recommendations from Dr. Pete. Plans for rehabilitation either inpatient or at home per primary service. (2) CHF (congestive heart failure): Code(s): I50.9 - Heart failure, unspecified Status: Acute Assessment and Plan: Stable, reasonably compensated. Acute renal failure hold off on triamterene hydrochlorothiazide. Continue lasix 20mg p.o. b.i.d. Her potassium is low today and will supplement with 40 mEq of p.o. x1 (3) Acute CVA (cerebrovascular accident): Code(s): I63.9 - Cerebral infarction, unspecified Status: Acute Assessment and Plan: Neurology following, Per the recommendations okay to restart Xarelto. Stroke secondary to cardioembolic related to atrial fibrillation due to noncompliance with medications including systemic anticoagulation. Agree with initiation of statin therapy. She must remain compliant with medication particularly anticoagulation given stroke secondary to noncompliance. Patient understands and agrees. (4) Renal failure: Code(s): N19 - Unspecified kidney failure Status: Acute Assessment and Plan: Stable. Per primary service. (5) Dyslipidemia: Code(s): E78.5 - Hyperlipidemia, unspecified Status: Acute Assessment and Plan: Low-dose atorvastatin initiated 10 mg. Monitor LDL closely. (6) Insulin dependent diabetes mellitus: Status: Acute Assessment and Plan: Per primary service. Subjective Date/time seen: 03/29/21 09:36 Interval history: Follow-up visit in this 76-year-old woman with: Chronic atrial fibrillation unfortunately with apparent cardioembolic stroke because of noncompliance with medication. Patient discontinued all of her medication including her anticoagulation several weeks ago. 03/25/2021: She is feeling better today. She does ambulated to the bathroom and back to bed right before I saw her. She says that she did well with this and her weakness she feels is improving. She denies any chest pain, shortness of breath, palpitations. Date of service 03/26/2021: Patient denies palpitation, chest pain or shortness of breath. She denies dizziness. Still somewhat weak with ambulation but has no other new complaints. Heart rate well controlled in atrial fibrillation on telemetry. Date of service 03/29/2021: She feels okay denies any chest pain, shortness of breath. No syncope or bleeding problems Review of Systems Constitutional: Constitutional: Reports fatigue and Reports lethargy Eyes: Eyes: Reports no additional eye complaints ENT: Reports system reviewed and no additional complaints, except as documented Cardiovascular: Cardiovascular: Reports no additional cardiovascular complaints Respiratory: Respiratory: Reports no additional respiratory complaints Gastrointestinal: Gastrointestinal: Reports no additional gastrointestinal complaints Musculoskeletal: Musculoskeletal: Reports arthralgias Integumentary/Breasts: Skin/Breast: Reports system reviewed and no additional complaints, except as docu Neurologic: Reports as per HPI Endocrine: Endocrine: Reports no additional endocrine complaints and Reports fatigue Hematologic/Lymphatic: Hematologic/Lymphatic: Reports no additional hematologic/lymphatic complaints Allergic/Immunologic: Allergic/Immunologic: Reports no additional allergic/immunologic complaints Exam Const: General: comfortable and no acute distress Orientation/consciousness: patient oriented x3 Other: Pleasant elderly white female. Alert and oriented. Pleasant and cooperative. No distress. HENMT: Head: normal to inspection Ears: hearing grossly normal bilat
[2021-03-29] MEDS: POTASSIUM CHLORIDE 20 MEQ TABLET 40 MEQ PO (10:37)
[2021-03-29 11:49] LABS: Glucose Point of Care 263 mg/dl (65-105)
--- NOTE | 2021-03-29 14:26 | PM.PNNEP ---
Progress Note: A&P Assessment and Plan (1) Hyponatremia syndrome: Code(s): E87.1 - Hypo-osmolality and hyponatremia Status: Acute Assessment and Plan: The patient has hyponatremia. TSH and cortisol are okay. Images look okay. She was on a thiazide and SSRI as an outpatient. Urine sodium is low. Most likely the hyponatremia is due to pre renal factors probably due to the heart and complicated by the Narcotics, thiazide and SSRI. 03/24 Na 126 03/25 Na 123 then 121 03/26 Na 124 [id number] (but [id number]) 03/27 Na 127 03/28 Na 129 03/29 Na 133 Currently on fluid restriction of 1000cc per day. She is volume overloaded so she is getting diuretics; I am giving salt tablets with the diuretics to keep the sodium from dropping from the diuretics. her edema is better. Will check a chest x-ray today. Because her sodium level is above 130 I am going to increase the fluid intake. Okay for discharge from the kidney standpoint. (2) Acute CVA (cerebrovascular accident): Code(s): I63.9 - Cerebral infarction, unspecified Status: Acute Assessment and Plan: The patient has weakness on the left side. (3) CHF (congestive heart failure): Code(s): I50.9 - Heart failure, unspecified Status: Acute Assessment and Plan: Patient does not have a cardiomyopathy. Atrial fibrillation can reduced cardiac output however. Cardiology is looking into her arrhythmias. (4) Hypertension: Code(s): I10 - Essential (primary) hypertension Status: Chronic Assessment and Plan: Systolic is under good control. She is on diltiazem, hydralazine, metoprolol. (5) Atrial fibrillation with rapid ventricular response: Code(s): I48.91 - Unspecified atrial fibrillation Status: Acute Assessment and Plan: Heart rate is well controlled (6) Rheumatoid arthritis: Code(s): M06.9 - Rheumatoid arthritis, unspecified Status: Acute Assessment and Plan: She is on methotrexate and hydrocodone for this. (7) Dyslipidemia: Code(s): E78.5 - Hyperlipidemia, unspecified Status: Acute Assessment and Plan: She is on medications for this (8) Insulin dependent diabetes mellitus: Status: Acute Assessment and Plan: She is on sliding scale insulin Subjective Date/time seen: 03/29/21 14:26 Interval history: Regine is feeling fine. She walked in the halls. She says that she could have gone further. She slept okay last night. On fluid restriction. Exam Narrative: WDWN in NAD skin no rash head ncat lungs clear to auscultation cor irreg no rub or gallop abd BS+ nontender and soft ext 1+ bilateral edema. Objective Data Vital Signs Vital Signs: Vital Signs - 24 hr 03/28/21 16:00 03/28/21 20:00 03/28/21 20:41 Temperature 36.8 C 36.9 C Pulse Rate 76 97 60 Respiratory Rate 16 16 Blood Pressure 127/67 131/89 Pulse Oximetry 98 94 03/29/21 00:00 03/29/21 04:00 03/29/21 06:00 Temperature 36.1 C L Pulse Rate 67 80 91 Respiratory Rate 18 Blood Pressure 127/57 L Pulse Oximetry 97 03/29/21 08:00 03/29/21 08:21 03/29/21 12:00 Temperature 37.1 C 37.1 C Pulse Rate 50 L 91 77 Respiratory Rate 16 20 Blood Pressure 107/45 L 108/71 Pulse Oximetry 98 99 Intake/Output Intake/Output: Intake & Output 03/26/21 03/27/21 03/28/21 03/29/21 23:59 23:59 23:59 23:59 Intake Total 920 360 675 560 Output Total 3475 2200 2120 1400 [facility] -2555 -1840 -1445 -840 Meds/Results Medications: Active Medications Generic Name Dose Route Start Last Admin Trade Name Jacob PRN Reason Stop Dose Admin Hydrocodone Bitart/Acetaminophen 1 tab 03/21/21 21:27 Hydrocodone/Acetaminophen (*Crx) 10-325 Mg Tablet PO Q8H PRN Pain Rated 4-6 Aspirin 81 mg 03/22/21 09:00 03/29/21 08:23 Aspirin 81 Mg Enteric Tablet PO 81 mg QAM TERESA Administration Atorvastatin Marcel
--- NOTE | 2021-03-29 14:55 | PM.IMPN ---
Progress Note: A&P Assessment and Plan (1) Hyponatremia syndrome: Code(s): E87.1 - Hypo-osmolality and hyponatremia Status: Acute Assessment and Plan: Hyponatremia is improving slowly with water restriction. Na 133 today. Likely side effect of thiazide diuretic and SSRI. There may be an element of ADH release in the setting of afib with RVR. TSH and cortisol within normal limits. [place] water restriction 1200 ccs per day, salt tablets. We will avoid thiazides as an outpatient. Recheck serum Na tomorrow. (2) CHF (congestive heart failure): Code(s): I50.9 - Heart failure, unspecified Status: Acute Assessment and Plan: Acute on chronic diastolic heart failure with preserved ejection fraction 50-55%. currently on IV lasix. She is diuresing well. No congestive symptoms. (3) Acute CVA (cerebrovascular accident): Code(s): I63.9 - Cerebral infarction, unspecified Status: Acute Assessment and Plan: Likely related to atrial fibrillation in the setting of non compliance. Continue rivaroxaban for prevention (4) Left-sided weakness: Code(s): R53.1 - Weakness Status: Acute Assessment and Plan: Improving with daily exercise. Likely secondary to acute CVA in the setting of thromboembolic event due to atrial fibrillation in a patient non compliant with anticoagulation regimen. Head MRI is contraindicated. Repeat CT brain is unrevealing. Resume rivaroxaban today after discussion with neurology. Jerk like movements likely related to hyponatremia. (5) Hypertension: Code(s): I10 - Essential (primary) hypertension Status: Chronic Assessment and Plan: Blood pressures were reviewed and they have been reasonable with isolated diastolic elevation. Continue antihypertensives and monitor closely for now. Continue metoprolol for rate control. due to mild elevation of creatinine, home DUNIA and diuretics have been on hold. (6) Insulin dependent diabetes mellitus: Status: Acute Assessment and Plan: Patient has an insulin pump. follow up with informatics educator for possible dysfunction. She has been experiencing hyperglycemia episodes, most recent above 400 on 03/26/2021. Patient on insulin sliding scale. Blood sugar is better this morning at 193. Continue monitoring. (7) Atrial fibrillation with rapid ventricular response: Code(s): I48.91 - Unspecified atrial fibrillation Status: Acute Assessment and Plan: Patient had a run of supraventricular tachycardia in the 150s on 03/28 and metoprolol was increased to 50 mg PO BID. Improve rate control in the 90s-low 100s Subjective Date/time seen: 03/29/21 14:55 Interval history: S: Patient was examined at the bedside. She feels better today. Review of Systems Review of Systems: All systems reviewed & are unremarkable except as noted in HPI and below Constitutional: Constitutional: Reports no additional constitutional complaints, Reports fatigue and Reports weakness Cardiovascular: Cardiovascular: Reports no additional cardiovascular complaints, Denies chest pain and Denies dyspnea Respiratory: Respiratory: Reports no additional respiratory complaints and Denies dyspnea Gastrointestinal: Gastrointestinal: Reports no additional gastrointestinal complaints, Denies abdominal pain, Denies diarrhea and Denies vomiting Genitourinary: Genitourinary: Reports no additional female genitourinary complaints Musculoskeletal: Musculoskeletal: Denies numbness Integumentary/Breasts: Skin/Breast: Reports system reviewed and no additional complaints, except as docu Neurologic: Denies Abnormal speech present, Denies confusion, Denies numbness and Reports weakness Psychiatric: Psychiatric: Reports no additional psychiatric complaints, Denies anxiety, Denies confusion and Denies depression Endocrine: Endocrine: Reports fatigue Exam Narrative: General: Well-developed female sitting up in bed no distr
[2021-03-29 16:26] LABS: Glucose Point of Care 359 mg/dl (65-105)
[2021-03-29] MEDS: RIVAROXABAN 20 MG TABLET PO (16:30)
[2021-03-29] MEDS: NORTRIPTYLINE HCL 10 MG CAPSULE 30 MG PO (19:49)
[2021-03-29 21:56] LABS: Glucose Point of Care 300 mg/dl (65-105)
[2021-03-30] VITALS: BP 148/62; PULSE 106; PULSE 85; RESP 18; TEMP 36.2; O2SAT 96
[2021-03-30 04:00] VITALS: BP 154/84; PULSE 70; PULSE 99; RESP 18; TEMP 36.3; O2SAT 96
[2021-03-30] MEDS: LEVOTHYROXINE SODIUM 25 MCG TABLET PO (05:01)
[2021-03-30 05:22] LABS: Basophils Percent Auto 0.3 % (0.2-1.2); Eosinophils Absolute Auto 0.2 K/mm3 (0-0.3); Eosinophils Percent Auto 2.7 % (0-4.4); Hematocrit 34.9 % (37.0-47.0); Hemoglobin 10.4 g/dL (12.0-15.0); Immature Granulocyte Absolute 0.04 K/mm3 (0.00-0.031); Immature Granulocyte Percent A 0.7 % (0-0.5); Lymphocytes Absolute Auto 0.52 K/mm3 (0.9-3.2); Lymphocytes Percent Auto 8.9 % (18.3-44.2); Mean Corpuscular HGB Conc 29.8 g/dl (32-36); Mean Corpuscular Hemoglobin 27.1 pg (26-34); Mean Corpuscular Volume 90.9 fl (80-100); Monocytes Absolute Auto 0.1 K/mm3 (0.1-0.6); Monocytes Percent Auto 1.2 % (2.6-8.5); Neutrophils Absolute Auto 5.1 K/mm3 (1.3-6.7); Neutrophils Percent Auto 86.2 % (45.5-73.1); Nucleated Red Blood Cells Perc 0.3 % (0.0-0.2); Platelet Count Result 152 k/mm3 (150-375); Red Blood Count 3.84 M/mm3 (4.2-5.4); Red Cell Distribution Width 17.4 % (11.5-14.5); White Blood Count 5.9 K/mm3 (4.5-10.0)
[2021-03-30 05:37] LABS: Albumin Level 3.2 g/dL (3.5-5.1); Anion Gap 10 mmol/L (8-16); Blood Urea Nitrogen 36 mg/dL (7-17); Calcium 8.3 mg/dL (8.4-10.2); Carbon Dioxide 24 mmol/L (22-30); Chloride 102 mmol/L (98-107); Estimated CRCL calculation 45 ml/min; Estimated Glomerular Filt Rate > 60; Glucose 394 mg/dL (65-110); Phosphorus 3.2 mg/dL (2.5-4.5); Potassium 4.2 mmol/L (3.4-5.0); Sodium 136 mmol/L (137-145)
[2021-03-30 07:32] LABS: Glucose Point of Care 396 mg/dl (65-105)
[2021-03-30] MEDS: INSULIN ASPART (*BKC) 100 UNITS/ML SUB-Q (07:34)
--- NOTE | 2021-03-30 07:54 | PM.DS ---
DS: Admitting Diagnosis Discharge Date 03/30/2021 Admitting Diagnosis LEft sided weakness DS: Discharge Diagnosis Discharge Diagnosis (1) Acute CVA (cerebrovascular accident): Code(s): I63.9 - Cerebral infarction, unspecified Status: Acute Assessment and Plan: Likely related to atrial fibrillation in the setting of non compliance. Continue rivaroxaban for prevention (2) Hyponatremia syndrome: Code(s): E87.1 - Hypo-osmolality and hyponatremia Status: Acute Assessment and Plan: Hyponatremia is improving slowly with water restriction. Na 136 on 03/30/2021. Likely side effect of thiazide diuretic and SSRI. There may be an element of ADH release in the setting of afib with RVR. TSH and cortisol within normal limits. Liberalie water restriction 1200 ccs per day, salt tablets. We will avoid thiazides as an outpatient. Recheck serum 1 week after discharge. (3) Atrial fibrillation with rapid ventricular response: Code(s): I48.91 - Unspecified atrial fibrillation Status: Acute Assessment and Plan: Patient had a run of supraventricular tachycardia in the 150s on 03/28 and metoprolol was increased to 50 mg PO BID. Improve rate control in the 90s-low 100s. Follow up with cardiology as an outpatient. (4) CHF (congestive heart failure): Code(s): I50.9 - Heart failure, unspecified Status: Acute Assessment and Plan: Acute on chronic diastolic heart failure with preserved ejection fraction 50-55%. currently on IV lasix. She is diuresing well. No congestive symptoms. (5) Left-sided weakness: Code(s): R53.1 - Weakness Status: Acute Assessment and Plan: Improving with daily exercise. Likely secondary to acute CVA in the setting of thromboembolic event due to atrial fibrillation in a patient non compliant with anticoagulation regimen. Head MRI is contraindicated. Repeat CT brain is unrevealing. Resume rivaroxaban today after discussion with neurology. Jerk like movements likely related to acute ischemic events, resolved without intervention. (6) Hypertension: Code(s): I10 - Essential (primary) hypertension Status: Chronic Assessment and Plan: Blood pressures were reviewed and they have been reasonable with isolated diastolic elevation. Continue antihypertensives and monitor closely for now. Continue metoprolol for rate control. due to mild elevation of creatinine, home DUNIA and diuretics have been on hold. (7) Insulin dependent diabetes mellitus: Status: Acute Assessment and Plan: Patient has an insulin pump. follow up with director of corporate strategy for possible dysfunction. She has been experiencing hyperglycemia episodes, most recent above 400 on 03/26/2021. Patient on insulin sliding scale. Blood sugar is has not been controlled on insulin pump. Patient has required multiple insulin sliding scale correction. Follow up with endocrinology/director of corporate strategy as an outpatient. DS: Summary Hospital Course Reason for hospitalization: Left sided weakness. Hospital Course: This is a 76- year old lady with a past medical history including but not limited to atrial fibrillation, hypertension who presents for evaluation of weakness. Patient states she has noticed bilateral leg swelling for 2 days and shortness of breath for 2 days. She also reports left side weakness that started around 1030-11 am. 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 Shortly afterwards she noticed weakness. She called EMS because prior to arrival she was so weak she slid out of her car. She denies history of CVA or similar weakness in the past. She denies headache, blurred vision or facial droop. She does report that she has not been taking most of her medication for several weeks. Her cleaning manager started on her on a blood thinner 3 weeks ago. She denies chest pain, cough or fever. She was diagnosed with acute CVA. Brain CT were negative X 2
[2021-03-30 08:00] VITALS: PULSE 123
[2021-03-30] MEDS: hydrALAZINE 12.5 MG TABLET PO (08:38)
[2021-03-30 08:39] VITALS: PULSE 102
[2021-03-30] MEDS: METOPROLOL TARTRATE 50 MG TAB PO (08:39)
[2021-03-30] MEDS: FENOFIBRATE NANOCRYSTALLIZED 145 MG TABLET PO (08:39)
[2021-03-30] MEDS: NORTRIPTYLINE HCL 10 MG CAPSULE 20 MG PO (08:39)
[2021-03-30] MEDS: SODIUM CHLORIDE 1 GM TABLET 2 GM PO (08:39)
[2021-03-30] MEDS: FUROSEMIDE 20 MG TABLET PO (08:39)
[2021-03-30] MEDS: dilTIAZem HCL CD 180 MG CAP.ER.24H 360 MG PO (08:39)
[2021-03-30] MEDS: ASPIRIN 81 MG ENTERIC TABLET PO (08:39)
[2021-03-30] MEDS: ATORVASTATIN 10 MG TABLET PO (08:39)
[2021-03-30] MEDS: DULoxetine HCL 60 MG CAPSULE.DR PO (08:39)
[2021-03-30] MEDS: FOLIC ACID 1 MG TABLET PO (08:39)
[2021-03-30] MEDS: CHOLECALCIFEROL 1,000 UNITS TABLET 5000 UNITS PO (08:40)
[2021-03-30] MEDS: hydrALAZINE HCL 25 MG TABLET PO (08:40)
[2021-03-30] MEDS: CYANOCOBALAMIN 500 MCG TABLET 2500 MCG PO (08:40)
[2021-03-30] MEDS: PREGABALIN (*CRX) 50 MG CAPSULE 200 MG PO (08:43)
--- NOTE | 2021-03-30 09:15 | PM.PNCARD ---
Progress Note: A&P Assessment and Plan (1) Atrial fibrillation with rapid ventricular response: Code(s): I48.91 - Unspecified atrial fibrillation Status: Acute Assessment and Plan: Rate control strategy. Generally speaking heart rate is controlled when reviewing compliance monitor. Continue current regimen. Anticoagulation has been resumed by hospitalist service per recommendations from Dr. Pete. Plans for rehabilitation either inpatient or at home per primary service. (2) CHF (congestive heart failure): Code(s): I50.9 - Heart failure, unspecified Status: Acute Assessment and Plan: Stable, reasonably compensated. Acute renal failure hold off on triamterene hydrochlorothiazide. Continue lasix 20mg p.o. b.i.d. (3) Acute CVA (cerebrovascular accident): Code(s): I63.9 - Cerebral infarction, unspecified Status: Acute Assessment and Plan: Neurology following, Per the recommendations okay to restart Xarelto. Stroke secondary to cardioembolic related to atrial fibrillation due to noncompliance with medications including systemic anticoagulation. Agree with initiation of statin therapy. She must remain compliant with medication particularly anticoagulation given stroke secondary to noncompliance. Patient understands and agrees. (4) Renal failure: Code(s): N19 - Unspecified kidney failure Status: Acute Assessment and Plan: Stable. Per primary service. (5) Dyslipidemia: Code(s): E78.5 - Hyperlipidemia, unspecified Status: Acute Assessment and Plan: Low-dose atorvastatin initiated 10 mg. Monitor LDL closely. (6) Insulin dependent diabetes mellitus: Status: Acute Assessment and Plan: Per primary service. Subjective Date/time seen: 03/30/21 09:15 Interval history: Follow-up visit in this 76-year-old woman with: Chronic atrial fibrillation unfortunately with apparent cardioembolic stroke because of noncompliance with medication. Patient discontinued all of her medication including her anticoagulation several weeks ago. 03/25/2021: She is feeling better today. She does ambulated to the bathroom and back to bed right before I saw her. She says that she did well with this and her weakness she feels is improving. She denies any chest pain, shortness of breath, palpitations. Date of service 03/26/2021: Patient denies palpitation, chest pain or shortness of breath. She denies dizziness. Still somewhat weak with ambulation but has no other new complaints. Heart rate well controlled in atrial fibrillation on telemetry. Date of service 03/29/2021: She feels okay denies any chest pain, shortness of breath. No syncope or bleeding problems 03/30/2021: Date of service: Feels okay. Heart rate is controlled. No shortness of breath or chest pain Review of Systems Constitutional: Constitutional: Reports fatigue and Reports lethargy Eyes: Eyes: Reports no additional eye complaints ENT: Reports system reviewed and no additional complaints, except as documented Cardiovascular: Cardiovascular: Reports no additional cardiovascular complaints Respiratory: Respiratory: Reports no additional respiratory complaints Gastrointestinal: Gastrointestinal: Reports no additional gastrointestinal complaints Musculoskeletal: Musculoskeletal: Reports arthralgias Integumentary/Breasts: Skin/Breast: Reports system reviewed and no additional complaints, except as docu Neurologic: Reports as per HPI Endocrine: Endocrine: Reports no additional endocrine complaints and Reports fatigue Hematologic/Lymphatic: Hematologic/Lymphatic: Reports no additional hematologic/lymphatic complaints Allergic/Immunologic: Allergic/Immunologic: Reports no additional allergic/immunologic complaints Exam Const: General: comfortable and no acute distress Orientation/consciousness: patient oriented x3 Other: Pleasant elderly white female. Alert and
--- NOTE | 2021-03-30 09:22 | PM.PNNEP ---
Progress Note: A&P Assessment and Plan (1) Hyponatremia syndrome: Code(s): E87.1 - Hypo-osmolality and hyponatremia Status: Acute Assessment and Plan: The patient has hyponatremia. TSH and cortisol are okay. Images look okay. She was on a thiazide and SSRI as an outpatient. Urine sodium is low. Most likely the hyponatremia is due to pre renal factors probably due to the heart and complicated by the Narcotics, thiazide and SSRI. 03/24 Na 126 03/25 Na 123 then 121 03/26 Na 124 [id number] (but ) 03/27 Na 127 03/28 Na 129 03/29 Na 133 03/30 Na 136 Currently on fluid restriction of 1200cc per day. We can increase this [id number] per day. Reduce sodium chloride to1g twice a day I can follow as an outpatient and further adjust medications. (2) Acute CVA (cerebrovascular accident): Code(s): I63.9 - Cerebral infarction, unspecified Status: Acute Assessment and Plan: The patient has weakness on the left side. (3) CHF (congestive heart failure): Code(s): I50.9 - Heart failure, unspecified Status: Acute Assessment and Plan: Patient does not have a cardiomyopathy. Atrial fibrillation can reduced cardiac output however. Cardiology is looking into her arrhythmias. heart failure is well compensated. (4) Hypertension: Code(s): I10 - Essential (primary) hypertension Status: Chronic Assessment and Plan: Systolic is under good control. She is on diltiazem, hydralazine, metoprolol. (5) Atrial fibrillation with rapid ventricular response: Code(s): I48.91 - Unspecified atrial fibrillation Status: Acute Assessment and Plan: Heart rate is well controlled (6) Rheumatoid arthritis: Code(s): M06.9 - Rheumatoid arthritis, unspecified Status: Acute Assessment and Plan: She is on methotrexate and hydrocodone for this. (7) Dyslipidemia: Code(s): E78.5 - Hyperlipidemia, unspecified Status: Acute Assessment and Plan: She is on medications for this (8) Insulin dependent diabetes mellitus: Status: Acute Assessment and Plan: She is on sliding scale insulin Subjective Date/time seen: 03/30/21 09:22 Interval history: Regine is feeling fine. Eating some breakfast. Exam Narrative: WDWN in NAD skin no rash Or subQ nodules head ncat lungs clear cor irreg no rub or gallop abd BS+ nontender and soft ext 1+ bilateral edema. Objective Data Vital Signs Vital Signs: Vital Signs - 24 hr 03/29/21 12:00 03/29/21 16:00 03/29/21 16:31 Temperature 37.1 C Pulse Rate 77 112 H Respiratory Rate 20 Blood Pressure 108/71 139/81 Pulse Oximetry 99 03/29/21 19:49 03/29/21 20:00 03/30/21 00:00 Temperature 36.4 C 36.2 C L Pulse Rate 80 97 106 H Respiratory Rate 18 18 Blood Pressure 125/58 L 148/62 H Pulse Oximetry 97 96 03/30/21 04:00 03/30/21 08:39 Temperature 36.3 C L Pulse Rate 70 102 H Respiratory Rate 18 Blood Pressure 154/84 H Pulse Oximetry 96 Intake/Output Intake/Output: Intake & Output 03/27/21 03/28/21 03/29/21 03/30/21 23:59 23:59 23:59 23:59 Intake Total 445 766 2975 200 Output Total 2200 2120 2275 1400 [id number] [id number] -1200 Meds/Results Medications: Active Medications Generic Name Dose Route Start Last Admin Trade Name Freq PRN Reason Stop Dose Admin Hydrocodone Bitart/Acetaminophen 1 tab 03/21/21 21:27 Hydrocodone/Acetaminophen (*Crx) 10-325 Mg Tablet PO Q8H PRN Pain Rated 4-6 Aspirin 81 mg 03/22/21 09:00 03/30/21 08:39 Aspirin 81 Mg Enteric Tablet PO 81 mg QAM TERESA Administration Atorvastatin Calcium 10 mg 03/25/21 09:00 03/30/21 08:39 Atorvastatin 10 Mg Tablet PO 10 mg DAILY TERESA Administration Cyanocobalamin 2,500 mcg 03/22/21 09:00 03/30/21 08:40 Cyanocobalamin 500 Mcg Tablet PO 04/21/21 08:59 2,500 mcg DAILY [facility] Administra
[2021-03-30 09:26] VITALS: BP 133/69; PULSE 92; RESP 20; TEMP 36; O2SAT 98
== END 2021-03-30 11:54 | disposition home or self-care (01) | DRG 64 ==
LOC: ANHED 13:34 → ANHIMU 23:43 → ANH2MED 03-28 07:54 → ANHIMU 04-02 11:39
PROVIDERS: Internal Medicine; Internal Medicine Nephrology; Physician Assistant; Admitting Provider Internal Medicine; Emergency Provider General Practice; Visit Provider Internal Medicine
DX: I63.40 Cerebral infarction due to embolism of unspecified cerebral artery (principal); I50.33 Acute on chronic diastolic (congestive) heart failure; I48.20 Chronic atrial fibrillation, unspecified; G81.94 Hemiplegia, unspecified affecting left nondominant side; E87.1 Hypo-osmolality and hyponatremia; N17.9 Acute kidney failure, unspecified; I47.1 Supraventricular tachycardia; I11.0 Hypertensive heart disease with heart failure; E11.9 Type 2 diabetes mellitus without complications; F32.9 Major depressive disorder, single episode, unspecified; E78.5 Hyperlipidemia, unspecified; M06.9 Rheumatoid arthritis, unspecified; H35.30 Unspecified macular degeneration; E03.9 Hypothyroidism, unspecified; R29.709 NIHSS score 9; Z91.14 Patient's other noncompliance with medication regimen; Z90.49 Acquired absence of other specified parts of digestive tract; Z98.42 Cataract extraction status, left eye; Z98.41 Cataract extraction status, right eye; Z90.710 Acquired absence of both cervix and uterus; Z87.891 Personal history of nicotine dependence
CPT/HCPCS: 36415; 36600; 70450; 70496; 70498; 71045; 76775; 80048; 80061; 80069; 80076; 82140; 82375; 82533; 82570; 82805; 82948; 83036; 83050; 83735; 83880; 83930; 83935; 84100; 84155; 84165; 84295; 84300; 84439; 84443; 84480; 84484; 85025; 85027; 85520; 85610; 85730; 93005; 93306; 93970; 96365; 96366; 96375; 97110; 97116; 97161; 97530; 99285; A9270; J1815; J1940; Q9967

== ENCOUNTER 2021-06-07 21:18 | Inpatient (IN) | payer MEDICARE, OTHER, SELFPAY ==
--- NOTE | ~2021-06-07 | XR_ITS ---
EXAMINATION: XR chest 1V portable DATE: 06/07/2021 23:01 INDICATION: Tachypnea TECHNIQUE: frontal view of the chest was obtained. COMPARISON: Chest radiograph dated 03/21/[address] abdomen and pelvis dated 06/08/2021 FINDINGS: Small left pleural effusion with left basilar atelectasis. There is a similar sized right pleural eff usion on the subsequent CT which is not evident on the radiographs, likely subpulmonic. No pulmonary edema or pneumothorax. Cardiomegaly. Dense mitral annular calcification. Bilateral reverse total shou lder arthroplasties. Right internal jugular central venous catheter with distal tip at the caudal sup erior vena cava. Vertebroplasty is at the T12 and L1. Cholecystectomy clips in the right upper quadra nt. IMPRESSION: 1. Small left pleural effusion with left basilar atelectasis. 2. Likely occult small right subpulmonic effusion indiscernible on the current radiographs but eviden t on CT performed a couple hours later. 3. Cardiomegaly. Reviewed, dictated and finalized at location A. SPERSON HOUSEHOLD APPLIANCES IMPRESSION: 1. Small left pleural effusion with left basilar atelectasis. 2. Likely occult small right subpulmonic effusion indiscernible on the current radiographs but evident on CT performed a couple hours later. 3. Cardiomegaly.
--- NOTE | ~2021-06-07 | CT_ITS ---
EXAMINATION: CT abdomen pelvis w con DATE: 06/08/2021 00:43 INDICATION: Left hip surgery. Assess for abscess. TECHNIQUE: Computed tomography (CT) of the abdomen and pelvis was performed with 100 mL Omnipaque-350 intravenous contrast. Automated exposure control and iterative reconstruction technique were employe d. The dose-length product was 1029.76 mGy-cm. COMPARISON: None FINDINGS: Small bilateral pleural effusions, right greater than left. Associated dependent compressive atelecta sis in the bilateral lower lobes. Cardiomegaly. Atherosclerotic coronary artery calcifications. Aorti c valve and mitral annular calcification. No pericardial effusion. There is prominent motion artifact in the upper abdomen which mildly limits evaluation. Cholecystectomy clips the gallbladder fossa. Li radha, spleen, pancreas and bilateral adrenal glands are normal. 1-2 mm nonobstructing stone at a lower pole calyx of the left kidney. Small bilateral low-attenuation renal cysts. There is a large 2.1 cm high attenuation likely proteinaceous/hemorrhagic cyst at the upper pole of the right kidney which co rresponds in size and location to an anechoic cyst on prior renal ultrasound dated 03/22/2021. [place] c atheter in the decompressed bladder. The uterus is not identified and has likely been surgically rese cted. Likely dropped cholecystectomy clip in the uterine fossa. No bowel obstruction. Suggestion of s ome wall thickening at the distal rectum which could be due to proctitis or decompressed state. Extensive body wall edema as well as some retroperitoneal edema in the pelvis. No pathologically enla rged abdominal or pelvic lymphadenopathy. Small fat-containing infraumbilical ventral hernia. There is calcified atherosclerosis of the aorta and many of the other arteries. Chronic T12 compression fra cture and L1 burst fracture with prior vertebral plasties. 3 mm retropulsion at L1 as well as some ex travasation of methylmethacrylate into the left anterior side of the central canal resulting in mild central canal stenosis at this level. Intratrochanteric fracture of the proximal left femur with inco mpletely visualized antegrade intramedullary jose and femoral neck dynamic compression screw fixation. IMPRESSION: 1. Small bilateral pleural effusions, right greater than left with associated compressive atelectasis in the lower lobes. 2. Nonobstructing 1-2 mm left renal stone. 3 Wall thickening at the rectum which could be due to proc titis or decompressed state. 4. Extensive body wall and some pelvic retroperitoneal edema. 5. Cardiomegaly. Reviewed, dictated and finalized at location A. RT FREIGHT MANAGER IMPRESSION: 1. Small bilateral pleural effusions, right greater than left with associated c ompressive atelectasis in the lower lobes. 2. Nonobstructing 1-2 mm left renal stone. 3 Wall thickening at the rectum whic h could be due to proctitis or decompressed state. 4. Extensive body wall and some pelvic retroperitoneal edema. 5. Cardiomegaly.
--- NOTE | ~2021-06-07 | US_ITS ---
EXAMINATION: US art doppler w haider SYED EXAM DATE: 06/10/2021 16:07 INDICATION: Cool extremities with decreased pulses. TECHNIQUE: Segmental pressures and plethysmographic and Doppler waveforms of the brachial and lower e xtremity arteries were obtained. There is no prior study for comparison. FINDINGS: Right and left brachial artery pressures of 127 mm Hg and 119 mm Hg, respectively, are concordant (no rmal difference <= 30 mmHg). RIGHT LEG: The ankle-brachial index (DARÍO) is 0.81 (normal >= 0.9-1). The great toe-brachial index (TBI) is 0.06 (normal >= 0.65). The lower extremity ratios, segmental pressure gradients as follows; Dorsalis pedis: 0.81 (103 mmHg). Posterior tibial: Could not obtain ( mmHg). (Normal gradients <= 20-30 mmHg between adjacent levels on the same leg or the same levels on the two legs). Arterial waveforms are monophasic. LEFT LEG: The ankle-brachial index (DARÍO) is 0.78 (normal >= 0.9-1). The great toe-brachial index (TBI) is 0.26 (normal >= 0.65). The lower extremity ratios, segmental pressure gradients as follows; Dorsalis pedis: 0.78 (99 mmHg). Posterior tibial: Could not obtain ( mmHg). (Normal gradients <= 20-30 mmHg between adjacent levels on the same leg or the same levels on the two legs). Arterial waveforms are monophasic. IMPRESSION: 1. Right ankle-brachial index 0.81, mildly decreased. 2. Left ankle-brachial index 0.78, mildly decreased. 3. Severely diminished toe brachial indices. Reviewed, dictated and finalized at location A. ER BASED INTERVENTION COORDINATOR
--- NOTE | ~2021-06-07 | US_ITS ---
EXAMINATION: US abdomen limited DATE: 06/08/2021 13:29 INDICATION: Abnormal liver function tests. TECHNIQUE: Multiple grayscale and Doppler ultrasound images of the abdomen were obtained. COMPARISON: CT abdomen and pelvis 06/08/2021 FINDINGS: The visualized portions of the head and body of the pancreas are normal. There is mild intr ahepatic biliary duct dilatation. The common duct is dilated to 15 mm. There is normal flow in main p ortal vein. The gallbladder is absent. There is a right pleural effusion. IMPRESSION: 1. Intrahepatic and extrahepatic bile duct dilatation status post cholecystectomy. 2. Right pleural effusion. Reviewed, dictated and finalized at location A. ROOM SALES CONSULTANT IMPRESSION: 1. Intrahepatic and extrahepatic bile duct dilatation status post cholecystecto my. 2. Right pleural effusion.
--- NOTE | ~2021-06-07 | CT_ITS ---
EXAMINATION: CT brain wo con DATE: 06/08/2021 00:43 INDICATION: Altered mental status and confusion TECHNIQUE: Computed tomography (CT) of the head was performed without intravenous contrast. Sagittal and coronal reconstructions were performed. The mA was adjusted according to patient size. Iterative reconstruction technique was employed. The dose-length product was 681.00 mGy-cm. COMPARISON: head CT dated 03/22/2021 FINDINGS: No acute intracranial hemorrhage, acute infarction or abnormal extra axial fluid collection. Small fo cus of encephalomalacia along the medial right frontal lobe consistent with old infarct. Symmetric pr ominence of the sulci consistent with mild age-appropriate diffuse cerebral volume loss. Ventricles are normal and symmetric. No mass/mass effect. Changes of bilateral intraocular lens replacement. The orbits, paranasal sinuses and mastoid air cells are normal. Intracranial calcified cerebral atherosc lerosis is noted. IMPRESSION: 1. No acute intracranial process. 2. Small old infarct at the medial right frontal lobe. Reviewed, dictated and finalized at location A. MECHANIC
--- NOTE | ~2021-06-07 | US_ITS ---
EXAMINATION: US thoracentesis DATE: 06/11/2021 15:56 INDICATION: pleural effusion TECHNIQUE: The procedure and its risks, benefits, and alternatives were discussed with the patient's power of working second hand. Potential risks discussed included bleeding, infection, and pneumothorax. She unde rstood the risks and agreed to proceed. The skin was prepped and draped in sterile fashion. 1% lidoca ine was used for local anesthesia. Under ultrasound guidance, a 5 Fr catheter with trochar was advanc ed into the right pleural effusion. Fluid was aspirated. The catheter was removed, and a dressing was applied. There were no immediate complications. FINDINGS: Ultrasound images demonstrate a right pleural effusion and the catheter within the fluid. IMPRESSION: 1. Successful ultrasound-guided thoracentesis yielding 650 mL of clear, yellow fluid. Reviewed, dictated and finalized at location A. STILE COLLECTOR
--- NOTE | ~2021-06-07 | XR_ITS ---
EXAMINATION: [id number] DATE: 06/11/2021 15:01 INDICATION: Right pleural effusion status post thoracentesis. TECHNIQUE: Frontal and lateral views of the chest were obtained. COMPARISON: Chest CT 04/11/2021, chest single view 06/07/2021 FINDINGS: A calcified right lung nodule is consistent with old granulomatous disease. There are small pleural effusions. There are airspace opacities at left lung base. No pneumothorax. Cardiomegaly is noted. A right internal jugular central venous catheter is seen with tip in the right atrium. There a re surgical clips in the abdomen. There are bilateral shoulder arthroplasties. There are changes of v ertebroplasty at 2 levels. IMPRESSION: 1. Small pleural effusions with improvement on the right status post thoracentesis. 2. Airspace opacities at left lung base, likely atelectasis. 3. Cardiomegaly. Reviewed, dictated and finalized at location A. D/OSTOMY NURSE IMPRESSION: 1. Small pleural effusions with improvement on the right status post thoracente sis. 2. Airspace opacities at left lung base, likely atelectasis. 3. Cardiomegaly.
--- NOTE | ~2021-06-07 | CT_ITS ---
EXAMINATION: CT chest high resolution wo vt DATE: 06/11/2021 14:28 INDICATION: Pleural effusion, sepsis, congestive heart failure TECHNIQUE: Computed tomography (CT) of the chest was performed without intravenous contrast. The dose -length product (DLP) was 464.32 mGy-cm. Automated exposure control and iterative reconstruction tech [employer] were employed. COMPARISON: None FINDINGS: There are small to moderate-sized pleural effusions. 2 mm nodules of the upper lobes are likely infectious or inflammatory. There is passive dependent ate lectasis. Bilateral total shoulder arthroplasties cause streak artifact. No pathologically enlarged t horacic lymph nodes are identified. The heart size is normal. A right internal jugular catheter ends with its tip in the distal superior vena cava. Calcified coronary artery atherosclerosis is noted. Th ere is dense calcification of the mitral annulus. The gallbladder is surgically absent. Vertebroplast y changes noted at T12 and L1. There is severe thoracic spondylosis. IMPRESSION: 1. Rztog-cn-npnxanzc sized pleural effusions causing passive dependent atelectasis. Reviewed, dictated and finalized at location A. IALIST WOUND CARE IMPRESSION: 1. Bghyn-ab-wnetkven sized pleural effusions causing passive dependent atelecta sis.
[2021-06-07 21:13] VITALS: BP 103/88; PULSE 102; RESP 19; TEMP 35.8; O2SAT 96
[2021-06-07 21:25] LABS: Glucose Point of Care > 500 mg/dl (65-105)
--- NOTE | 2021-06-07 21:28 | ECG_ITS ---
Measurements Intervals [place] Rate: 107 P: AL: 0 QRS: -73 QRSD: 188 T: 9 QT: 389 QTc: 519 Interpretive Statements ATRIAL FIBRILLATION WITH RAPID VENTRICULAR RESPONSE LEFT AXIS DEVIATION RIGHT BUNDLE BRANCH BLOCK BASELINE ARTIFACT- I, II, III, AVR, AVL,A VF, V1-V6 ABNORMAL ECG Electronically Signed On 06-08-2021 7:03:13 PALLIATIVE MEDICINE PHYSICIAN by Devon Paiz D.O.
[2021-06-07 21:30] LABS: Alveolar/Arterial O2 Gradient 456.7 mmHg; Base Excess ABG -28.4 mEq/l (+/-2.0); Fractional Inspired Oxygen 100 %; HCO3 ABG 2.3 mEq/l (22.0-26.0); Oxygen Content ABG 13.7 %vol (16.0-22.0); Oxyhemoglobin 98.1 % THb (90.0-100.0); PO2 ABG 244.7 mmHg (80.0-100.0); PO2 FiO2 Ratio Arterial Blood 2.45 %; Total Hemoglobin 9.5 g/dL (12.0-18.0)
[2021-06-07 21:31] LABS: Device AMBU BAG; Modified Allen's Test Pass; PCO2 ABG 11.6 mmHg (35.0-45.0); Site Drawn LEFT RADIAL; pH ABG 6.917 (7.350-7.450)
[2021-06-07] MEDS: SODIUM BICARBONATE 8.4% 50 MEQ/50 ML SYRINGE IV PUSH (21:35)
[2021-06-07] MEDS: SODIUM CHLORIDE 0.9% IV 500 ML 999 ML IV CONT (21:39)
[2021-06-07] MEDS: SODIUM CHLORIDE 0.9% IV 1,000 ML 999 ML IV CONT ×2 (21:39→23:34)
[2021-06-07 21:56] VITALS: O2SAT 97
[2021-06-07 22:12] LABS: Basophils Absolute Auto 0.1 K/mm3 (0.0-0.1); Basophils Percent Auto 0.4 % (0.2-1.2); Eosinophils Percent Auto 0.1 % (0-4.4); Hematocrit 29.7 % (37.0-47.0); Hemoglobin 8.2 g/dL (12.0-15.0); Immature Granulocyte Absolute 1.71 K/mm3 (0.00-0.031); Immature Granulocyte Percent A 4.9 % (0-0.5); Lymphocytes Percent Auto 4.5 % (18.3-44.2); Mean Corpuscular HGB Conc 27.6 g/dl (32-36); Mean Corpuscular Hemoglobin 26.5 pg (26-34); Mean Corpuscular Volume 96.1 fl (80-100); Mean Platelet Volume 10.3 fl (7.4-10.4); Monocytes Absolute Auto 2.2 K/mm3 (0.1-0.6); Monocytes Percent Auto 6.2 % (2.6-8.5); Neutrophils Absolute Auto 29.6 K/mm3 (1.3-6.7); Neutrophils Percent Auto 83.9 % (45.5-73.1); Nucleated Red Blood Cells Absolute Auto 0.5 K/mm3 (0.0-0.012); Nucleated Red Blood Cells Perc 1.4 % (0.0-0.2); Platelet Count Result 481 k/mm3 (150-375); Red Blood Count 3.09 M/mm3 (4.2-5.4); Red Cell Distribution Width 23.2 % (11.5-14.5); White Blood Count 35.3 K/mm3 (4.5-10.0)
[2021-06-07 22:14] LABS: Acetaminophen < 10 ug/mL (10-30); Ammonia 174 umol/L (9-30); Ethanol < 10 mg/dL (<10); Salicylate 1.3 mg/dL (2-20)
[2021-06-07 22:24] LABS: INR 4.6; Prothrombin Time 41.8 Seconds (11.1-14.7)
[2021-06-07 22:26] LABS: Troponin I 0.016 ng/mL (0.000-0.034)
[2021-06-07 22:26] LABS: Add Urine Microscopic? YES; Appearance Urine Cloudy (Clear); Bilirubin Urine Negative (Negative); Blood Urine Negative (Negative); Color Urine Yellow (Yellow); Glucose Urine UA 3+ mg/dL (Negative); Ketones Urine 1+ mg/dL (Negative); Leukocyte Esterase Ur Negative LEU/UL (Negative); Mucus Urine Rare /lpf; Nitrate Urine Negative (Negative); Protein Urine Negative (Negative); Specific Grav Ur 1.015 (1.001-1.035); Squamous Epithelial Cell Urine Rare /hpf (Few); Urobilinogen Urine Negative mg/dL (<2.0); WBC Urine 0-3 /hpf
[2021-06-07 22:39] LABS: Anisocytosis 3+ (NORMAL); Burr Cells 3+ (NORMAL); Poikilocytosis 3+ (NORMAL)
[2021-06-07 22:40] LABS: Amphetamine Screen Urine Negative (Negative); Barbiturate Screen Urine Negative (Negative); Benzodiazepines Screen Urine Negative (Negative); Cannabinoid Screen Urine Negative (Negative); Cocaine Screen Urine Negative (Negative); Methadone Screen Urine Negative (Negative); Opiate Screen Urine Positive (Negative); Phencyclidine Screen Urine Negative (Negative)
[2021-06-07 22:40] LABS: Platelet Estimate Increased (Adequate)
[2021-06-07 22:46] LABS: Hemoglobin A1C 7.6 % (<5.7)
[2021-06-07 22:51] VITALS: BP 114/53; PULSE 109; RESP 25; O2SAT 97
[2021-06-07 22:55] LABS: Glucose Point of Care > 500 mg/dl (65-105)
--- NOTE | 2021-06-07 22:55 | ED.SOB ---
HPI - SOB/Dyspnea General Chief Complaint: Shortness of Breath/Dyspnea Stated Complaint: respiratory distress Time Seen by Provider: 06/07/21 21:28 Source: patient History of Present Illness HPI Narrative: Patient is referred from a nursing facility she recently had hip surgery and Андрей Perez was recovering well at her nursing facility related noted increased shortness of breath so they sent to the ER for evaluation EMS noted hypoxia to the 70s and 80s as well as tachypnea so they started patient on BVM. There is room also noted elevated blood sugars on glucometer. There is failure reports patient is acting altered Related Data Home Medications Medication Instructions Recorded Confirmed Ashley [place]-3 Krill Oil 1 cap PO DAILY 03/21/21 03/21/21 acetazolamide 250 mg DAILY 03/21/21 03/21/21 aspirin 81 mg PO DAILY 03/21/21 03/21/21 cholecalciferol (vitamin D3) 125 mcg PO DAILY 03/21/21 03/21/21 desvenlafaxine succinate 100 mg PO DAILY 03/21/21 03/21/21 docusate sodium 100 mg PO PRN 03/21/21 03/21/21 duloxetine 60 mg PO DAILY 03/21/21 03/21/21 ergocalciferol (vitamin D2) 50,000 unit PO WEEKLY 03/21/21 03/21/21 fenofibrate nanocrystallized 145 mg PO EVERY OTHER DAY 03/21/21 03/21/21 folic acid-vit B6-vit B12 1 tablet PO DAILY 03/21/21 03/21/21 hydrocodone-acetaminophen 1 tablet PO Q8H PRN 03/21/21 03/21/21 levothyroxine 25 mcg PO DAILY 03/21/21 03/21/21 lisinopril 40 mg BID 03/21/21 03/21/21 methotrexate sodium See Rx Instructions .ROUTE .COMPLEX 03/21/21 03/21/21 nortriptyline 10 mg PO TID 03/21/21 03/21/21 pregabalin 200 mg PO BID 03/21/21 03/21/21 Allergies Allergy/AdvReac Type Severity Reaction Status Date / Time adhesive tape Allergy Mild Unknown Verified 06/08/21 02:11 topiramate Allergy Mild Unknown Verified 06/08/21 02:11 adhesive Allergy Unknown SKIN Verified 06/08/21 02:11 SLOUGHS OFF morphine Allergy Unknown Unknown Verified 06/08/21 02:11 scopolamine Allergy Unknown SKIN Verified 06/08/21 02:11 SLOUGH OFF FROM PATCH TAPES-- Allergy Severe SKIN Uncoded 06/08/21 02:11 SLOUGHING OFF TRANSDERMAL SCOPALOMINE Allergy Severe SKIN Uncoded 06/08/21 02:11 SLOUGH OFF FROM PATCH Review of Systems Review of Systems: ROS unobtainable: Yes unobtainable due to mental status PMFSH Past Medical History Medical History Depression Dyslipidemia Hypertension Insulin dependent diabetes mellitus On insulin pump. Macular degeneration Paroxysmal atrial fibrillation Rheumatoid arthritis Surgical History Surgical History History of appendectomy History of arthroscopy of both shoulders History of bilateral cataract extraction History of colonoscopy with polypectomy History of hysterectomy History of laparoscopic adjustable gastric banding History of orthopedic surgery Pins in feet and elbow. History of repair of hiatal hernia Family History Family History Grandparent Family history of malignant neoplasm of ovary Other Carcinoma of colon Cerebrovascular accident Diabetes mellitus Family history of arthritis Family history of gout Hypertension Social History Social History Social History: The patient lives in [place] with her stepdaughter and son-in-law. Retired from doing secretarial work at numerous medical offices. She smoked a pack of cigarettes a day for 8 years and quit decades ago. She drinks perhaps 1 alcoholic regimen. No illicit substance use. She designates her stepdaughter, Sandhya Melara, as her surrogate decision-maker and she wishes to be a full code. Exam Narrative: GENERAL: Well-appearing, well-nourished, in respiratory distress HEAD: Normocephalic, atraumatic. EYES: PERRLA and EOMI. ENT: Nares clear, no rhinorrhea or epistaxis. Muco
[2021-06-07 22:56] LABS: Albumin Level 2.9 g/dL (3.5-5.1); Alkaline Phosphatase 197 U/L (38-126); Aspartate Amino Transferase 380 U/L (14-36); Bilirubin,Total 2.8 mg/dL (0.2-1.3); Blood Urea Nitrogen 42 mg/dL (7-17); Calcium 8.2 mg/dL (8.4-10.2); Carbon Dioxide < 5 mmol/L (22-30); Chloride 95 mmol/L (98-107); Estimated CRCL calculation 26 ml/min; Estimated Glomerular Filt Rate 34; Glucose 581 mg/dL (65-110); Magnesium 2.7 mg/dL (1.6-2.3); Phosphorus 8.1 mg/dL (2.5-4.5); Potassium 5.9 mmol/L (3.4-5.0); Sodium 131 mmol/L (137-145)
[2021-06-07 23:00] LABS: Lactic Acid Reflex 16.6 mmol/L (0.7-2.1)
[2021-06-07 23:02] LABS: Alanine Aminotransferase 248 U/L (4-35)
[2021-06-07] MEDS: INSULIN HUMAN REGULAR (*BKC) 100 UNITS/ML 7 UNITS IV PUSH (23:24)
[2021-06-07] MEDS: INSULIN HUMAN REGULAR (*BKC) 100 UNITS in SODIUM CHLORIDE 0.9% IV 99 ML 8.8 UNITS IV CONT (23:31)
[2021-06-07 23:38] VITALS: BP 117/85; PULSE 96; RESP 26; O2SAT 97
[2021-06-08] VITALS (16 sets, daily range): BP systolic 119–152; BP diastolic 50–83; PULSE 106–138; RESP 19–27; TEMP 35.8–36.7; O2SAT 95–100; BMI 26.7
--- NOTE | 2021-06-08 00:30 | PC.NURSE ---
per EDP sage pt taken off non rebreather and placed on nasal cannula 4/L
[2021-06-08 00:58] LABS: Reflex Lactic Acid Yes or No Add Lactic
[2021-06-08 00:59] LABS: Glucose Point of Care 492 mg/dl (65-105)
[2021-06-08] MEDS: SODIUM CHLORIDE 0.9% IV 1,000 ML 999 ML IV CONT (01:53)
[2021-06-08 01:59] LABS: Anion Gap 24 mmol/L (8-16); Blood Urea Nitrogen 41 mg/dL (7-17); Calcium 7.3 mg/dL (8.4-10.2); Carbon Dioxide 6 mmol/L (22-30); Chloride 100 mmol/L (98-107); Estimated CRCL calculation 30 ml/min; Estimated Glomerular Filt Rate 40; Glucose 530 mg/dL (65-110); Potassium 4.5 mmol/L (3.4-5.0); Sodium 130 mmol/L (137-145)
[2021-06-08 02:01] LABS: Base Excess ABG -23.4 mEq/l (+/-2.0); Fractional Inspired Oxygen 36 %; HCO3 ABG 4.2 mEq/l (22.0-26.0); Oxygen Content ABG 11.2 %vol (16.0-22.0); Oxygen Saturation ABG 97.2 % (95.0-100.0); Oxyhemoglobin 95.7 % THb (90.0-100.0); PO2 ABG 122.4 mmHg (80.0-100.0); Total Hemoglobin 8.1 g/dL (12.0-18.0)
[2021-06-08 02:03] LABS: Device NASAL CANNULA; Modified Allen's Test Pass; Site Drawn LEFT RADIAL; pH ABG 7.097 (7.350-7.450)
[2021-06-08 02:07] LABS: Glucose Point of Care 483 mg/dl (65-105)
[2021-06-08 02:09] LABS: Lactic Acid 12.1 mmol/L (0.7-2.1)
--- NOTE | 2021-06-08 02:39 | PM.IMHP ---
H&P: HPI History of Present Illness Date/Time: 06/08/21 02:39 Chief Complaint: Dyspnea Narrative: 76-year-old female with past medical history of CVA March 2021, paroxysmal atrial fibrillation, and type 1 diabetes mellitus who presented to the ER via EMS from [facility] after having decreased oxygen saturations. The patient has CV in March 2021 and was discharged to rehab. She had just returned home in mid May when she had a fall that resulted in left hip fracture. The patient was admitted to [facility] where she had intramedullary pinning on 05/31/2021. She was hospitalized from 05/31 3 has not 21 through 06/06/2021. At that time the patient was admitted she was noted to be encephalopathic as well. Only a portion of the medical records were available for my review. The patient was discharged to [facility] on 05/07/2021. During her hospital stay at [facility] her insulin pump had been held and she was receiving Lantus subQ. At the time of her discharge her discharge med rec said resume her home insulin pump. It does not appear that the patient ever had her insulin pump reinserted and there was no orders that I could find from the [facility]p that indicated she was receiving insulin. Subsequently when EMS arrived to the scene the patient's glucoses were reading high on the glucometer. Patient has low oxygen saturations and received ventilatory cyst by bag-valve mask. On arrival to the ER the patient was satting 100% on non-rebreather. A stat ABG demonstrated severe metabolic acidosis with a pH below 7. The patient was hyperventilating to try to compensate for her metabolic acidosis. She received a total of 3.5 L of IV fluids. Patient was started on insulin drip in the ER. The patient was weaned to 4 L nasal cannula and oxygen saturations remained at 100%. And chest x-ray demonstrated pleural effusions that seemed to be improved compared to prior exam from March. On arrival to the ER the patient was noted to be in AFib RVR with heart rate being somewhat variable. After IV fluid hydration the patient's heart rate had initially improved down to around 106. But her on arrival to the ICU the patient's heart rate had been running more persistently between 130 and 160. The patient was minimally responsive on arrival to the ER but mentation improved slightly but time of my evaluation. She would open her eyes to command and would answer questions in the affirmative but then you could not understand the remainder of her response. She would intermittently follow commands. She was hypothermic according to ER vital signs. She was found to have marked leukocytosis and lactic acidosis on labs. She received an amp of sodium bicarb and was started on insulin bolus and drip. Repeat ABG 4 hours later demonstrated modest improvement in pH. On exam in the ER patient's lower extremities were noted be quite dusky with 2nd cap refill. Extremities were also cold. The right lower extremity had pulses or relatively easy to Doppler with dorsalis pedis not being quite as prominent as the posterior tibial. However on the left were unable to obtain the patient's dorsalis pedis pulse and had week difficult to ascertain posterior tibial. I did contact vascular surgeon at [facility] regarding these findings. He was willing to evaluate the patient however there were no ICU beds available at their facility. I did try to transfer the patient also to [facility] but there were no beds available. The patient remains on a wait list for both of these facilities. However on re-evaluation of the patient after she arrived in the ICU both extremities have improved modestly in appearance. Review of Systems Review of Systems: ROS unobtainable: Yes unobtainable due to medical condition (DKA with encephalopathy) [facility] Past Medical History Medical History (Updated 06/08/21 @ 07:07 by Lynn Obregon DO) Acut
[2021-06-08 03:13] LABS: Glucose Point of Care 467 mg/dl (65-105)
[2021-06-08] MEDS: SODIUM CHLORIDE 0.9% IV 1,000 ML 150 ML IV CONT (04:00)
[2021-06-08 04:09] LABS: Glucose Point of Care 433 mg/dl (65-105)
[2021-06-08 05:17] LABS: Glucose Point of Care 447 mg/dl (65-105)
[2021-06-08 06:46] LABS: Glucose Point of Care 414 mg/dl (65-105)
[2021-06-08] MEDS: dilTIAZem HCl INJ 25 MG/5 ML VIAL 20 MG IV PUSH (07:03)
[2021-06-08] MEDS: CENTRAL LINE FLUSH 10 ML IV PUSH ×4 (07:04→19:35)
[2021-06-08 07:26] LABS: Anion Gap 20 mmol/L (8-16); Blood Urea Nitrogen 42 mg/dL (7-17); Calcium 7.7 mg/dL (8.4-10.2); Carbon Dioxide 11 mmol/L (22-30); Chloride 103 mmol/L (98-107); Estimated CRCL calculation 35 ml/min; Estimated Glomerular Filt Rate 48; Glucose 381 mg/dL (65-110); Potassium 3.4 mmol/L (3.4-5.0); Sodium 134 mmol/L (137-145)
[2021-06-08 07:29] LABS: INR 2.9; Prothrombin Time 29.7 Seconds (11.1-14.7)
[2021-06-08 07:31] LABS: Albumin Level 2.6 g/dL (3.5-5.1); Alkaline Phosphatase 157 U/L (38-126); Bilirubin Direct 0.2 mg/dL (0-0.3); Bilirubin,Total 1.8 mg/dL (0.2-1.3)
[2021-06-08 07:33] LABS: Lactic Acid Reflex 9.7 mmol/L (0.7-2.1)
[2021-06-08 07:42] LABS: Alanine Aminotransferase 228 U/L (4-35); Aspartate Amino Transferase 467 U/L (14-36)
--- NOTE | 2021-06-08 07:44 | ADMGEN ---
This patient, Regine Mittal, was admitted to Intensive Care Unit-8 at 0620. Patient/family oriented to hospital policies and general routines including ID bracelet, bed and alarms, visiting hours, pain management, procedures, bathroom and other care routines, personal items, smoking policy, room service/diet, and visiting hours. Information on how to activate the Rapid Response Team has been discussed. Patient/Family are encouraged to report perceived risks to care and to ask questions if they do not understand what they are told or what they should do.
[2021-06-08] MEDS: INSULIN HUMAN REGULAR (*BKC) 100 UNITS in SODIUM CHLORIDE 0.9% IV 99 ML 28.08 UNITS IV CONT (07:45)
[2021-06-08 07:49] LABS: Glucose Point of Care 372 mg/dl (65-105)
[2021-06-08 07:51] LABS: Basophils Absolute Auto 0.1 K/mm3 (0.0-0.1); Basophils Percent Auto 0.4 % (0.2-1.2); Hematocrit 25.5 % (37.0-47.0); Hemoglobin 7.5 g/dL (12.0-15.0); Immature Granulocyte Absolute 1.15 K/mm3 (0.00-0.031); Lymphocytes Absolute Auto 0.92 K/mm3 (0.9-3.2); Lymphocytes Percent Auto 2.4 % (18.3-44.2); Mean Corpuscular HGB Conc 29.4 g/dl (32-36); Mean Corpuscular Hemoglobin 25.2 pg (26-34); Mean Corpuscular Volume 85.6 fl (80-100); Mean Platelet Volume 10.6 fl (7.4-10.4); Monocytes Absolute Auto 0.9 K/mm3 (0.1-0.6); Monocytes Percent Auto 2.4 % (2.6-8.5); Neutrophils Absolute Auto 35.7 K/mm3 (1.3-6.7); Neutrophils Percent Auto 91.8 % (45.5-73.1); Nucleated Red Blood Cells Absolute Auto 0.7 K/mm3 (0.0-0.012); Nucleated Red Blood Cells Perc 1.9 % (0.0-0.2); Platelet Count Result 348 k/mm3 (150-375); Red Blood Count 2.98 M/mm3 (4.2-5.4); Red Cell Distribution Width 22.6 % (11.5-14.5); White Blood Count 38.9 K/mm3 (4.5-10.0)
[2021-06-08 08:10] LABS: HAV RESULT Negative (Negative); Hepatitis B Core IgM Result Negative (Negative)
[2021-06-08 08:22] LABS: Hepatitis C Virus Antibody Negative (Negative)
[2021-06-08 08:50] LABS: Platelet Estimate Adequate (Adequate)
[2021-06-08 08:51] LABS: Anisocytosis 1+ (NORMAL); Burr Cells 2+ (NORMAL)
[2021-06-08 08:57] LABS: Glucose Point of Care 296 mg/dl (65-105)
[2021-06-08] MEDS: KCL 20 MEQ/D5/0.45% SOD CHL 1,000 ML 150 ML IV CONT (09:16)
[2021-06-08 09:46] LABS: Free T4 Free Thyroxine Reflex 1.22 ng/dL (0.78-2.19)
[2021-06-08 09:51] LABS: Glucose Point of Care 250 mg/dl (65-105)
--- NOTE | 2021-06-08 10:02 | WPDCNINT ---
Assessment and Plan Assessment and plan (1) Sepsis: Code(s): A41.9 - Sepsis, unspecified organism Status: Acute Assessment and Plan: patient presented with findings which meet the criteria for sepsis although source is not fully clear this time. CT abdomen pelvis does suggest proctitis but the findings are not impressive her UA is negative, CT of the abdomen pelvis show clear bases of lungs except some atelectasis and fusion blood cultures have been sent patient is on empiric antibiotics which will be continued lactic acid is improving patient is getting cautious amount of IV fluids due to diffuse anasarca not requiring vasopressors at this time (2) CHF (congestive heart failure): Code(s): I50.9 - Heart failure, unspecified Status: Acute Assessment and Plan: patient had echocardiogram in 03/25 which showed 1. Complete two-dimensional, color flow and Doppler transthoracic echocardiogram is performed. 2. There is moderate concentric increased left ventricular wall thickness. 3. Left ventricular systolic function is normal, estimated at 50-55%. 4. Left atrial chamber dimension is moderately enlarged. 5. There is mild aortic valve sclerosis. 6. There is mild mitral valve regurgitation. 7. There is mild tricuspid valve regurgitation. patient has diffuse anasarca and specially significantly lower extremity edema. this could be secondary to cirrhosis or right heart failure. Check BNP repeat echocardiogram tomorrow (3) Pleural effusion: Code(s): J90 - Pleural effusion, not elsewhere classified Status: Acute Assessment and Plan: patient has large effusions but currently is not symptomatic as she is on room air will evaluate for thoracentesis once other acute issues are settled (4) DKA (diabetic ketoacidosis): Qualifiers: Diabetes mellitus complication detail: without coma Diabetes mellitus type: due to underlying condition Qualified Code(s): E08.10 - Diabetes mellitus due to underlying condition with ketoacidosis without coma Code(s): E11.10 - Type 2 diabetes mellitus with ketoacidosis without coma Status: Acute Assessment and Plan: patient presented with DKA she was given IV fluid bolus and is currently on IV fluid infusion conservative IV fluids as patient is overall significantly volume overloaded insulin infusion serial labs (5) Acute kidney injury: Code(s): N17.9 - Acute kidney failure, unspecified Status: Acute Assessment and Plan: likely prerenal from intravascular volume depletion check CK level monitor urine output electrolytes creatinine CT abdomen pelvis did not show any hydronephrosis or stones she had recent renal ultrasound which showed medical renal disease (6) Anasarca: Code(s): R60.1 - Generalized edema Status: Acute Assessment and Plan: bilateral pleural effusion, diffuse lower extremity edema and anasarca likely secondary to cirrhosis or right heart failure or a combination of both. patient does have mention of pulmonary hypertension on her records from outside hospital but I do not have enough details about that albumin is 2.6 and elevated liver enzymes could be secondary to sepsis and shock. Her INR is 2.9 despite not being on any anticoagulation TSH is normal she had lower extremity Dopplers checked on last admission and were negative check right upper quadrant ultrasound may have to repeat echo (7) Atrial fibrillation with rapid ventricular response: Code(s): I48.91 - Unspecified atrial fibrillation Status: Acute Assessment and Plan: On Cardizem infusion for rate control (8) Elevated liver enzymes: Code(s): R74.8 - Abnormal levels of other serum enzymes Status: Acute Assessment and Plan: likely secondary to sepsis and hypoperfusion viral hepatitis panels ordered check right upper quadrant ultr
[2021-06-08 10:40] LABS: Total Triiodothyronine (T3) 0.46 NG/ML (0.97-1.69)
[2021-06-08 10:55] LABS: Glucose Point of Care 264 mg/dl (65-105)
[2021-06-08 11:22] LABS: Ammonia < 9 umol/L (9-30)
[2021-06-08 11:49] LABS: Glucose Point of Care 305 mg/dl (65-105)
[2021-06-08 11:55] LABS: Hepatitis B Surface Antigen Negative (Negative)
[2021-06-08 12:37] LABS: Glucose Point of Care 242 mg/dl (65-105)
[2021-06-08 13:28] LABS: Glucose Point of Care 202 mg/dl (65-105)
[2021-06-08 14:25] LABS: Glucose Point of Care 188 mg/dl (65-105)
[2021-06-08] MEDS: INSULIN HUMAN REGULAR (*BKC) 100 UNITS in SODIUM CHLORIDE 0.9% IV 99 ML 17.9 UNITS IV CONT (14:26)
[2021-06-08 15:26] LABS: Anion Gap 13 mmol/L (8-16); Blood Urea Nitrogen 41 mg/dL (7-17); Calcium 7.6 mg/dL (8.4-10.2); Carbon Dioxide 16 mmol/L (22-30); Chloride 109 mmol/L (98-107); Estimated CRCL calculation 39 ml/min; Estimated Glomerular Filt Rate 54; Glucose 148 mg/dL (65-110); Potassium 3.1 mmol/L (3.4-5.0); Sodium 138 mmol/L (137-145)
[2021-06-08 16:01] LABS: Glucose Point of Care 130 mg/dl (65-105)
[2021-06-08] MEDS: INSULIN GLARGINE (*BKC) 100 UNITS/ML 20 UNITS SUB-Q (16:21)
[2021-06-08] MEDS: KCL 40 MEQ/WATER 100 ML 100 ML 25 ML IVPB (16:53)
[2021-06-08 16:57] LABS: Glucose Point of Care 101 mg/dl (65-105)
[2021-06-08 19:06] LABS: Anion Gap 9 mmol/L (8-16); Blood Urea Nitrogen 41 mg/dL (7-17); Calcium 7.7 mg/dL (8.4-10.2); Carbon Dioxide 18 mmol/L (22-30); Chloride 106 mmol/L (98-107); Estimated CRCL calculation 43 ml/min; Estimated Glomerular Filt Rate > 60; Glucose 140 mg/dL (65-110); Sodium 133 mmol/L (137-145)
[2021-06-08] MEDS: KCL 20 MEQ/SW 100 ML 100 ML 50 MEQ IVPB (19:54)
[2021-06-08 20:03] LABS: Glucose Point of Care 150 mg/dl (65-105)
[2021-06-09] VITALS (23 sets, daily range): BP systolic 111–154; BP diastolic 58–116; PULSE 84–135; RESP 17–25; TEMP 36.7–37.1; O2SAT 92–100; BMI 27.2
[2021-06-09 01:15] LABS: Glucose Point of Care 212 mg/dl (65-105)
[2021-06-09] MEDS: INSULIN ASPART (*BKC) 100 UNITS/ML SUB-Q ×5 (01:17→19:42)
[2021-06-09] MEDS: METOPROLOL TARTRATE INJ 5 MG/5 ML VIAL IV PUSH ×4 (02:44→19:46)
[2021-06-09 04:01] LABS: Glucose Point of Care 224 mg/dl (65-105)
[2021-06-09] MEDS: CENTRAL LINE FLUSH 10 ML IV PUSH ×4 (04:03→19:47)
[2021-06-09 05:52] LABS: Hematocrit 23.4 % (37.0-47.0); Hemoglobin 7.5 g/dL (12.0-15.0); Mean Corpuscular HGB Conc 32.1 g/dl (32-36); Mean Corpuscular Hemoglobin 25.4 pg (26-34); Mean Corpuscular Volume 79.3 fl (80-100); Mean Platelet Volume 10.8 fl (7.4-10.4); Platelet Count Result 266 k/mm3 (150-375); Red Blood Count 2.95 M/mm3 (4.2-5.4); White Blood Count 40.1 K/mm3 (4.5-10.0)
[2021-06-09 06:04] LABS: Alanine Aminotransferase 166 U/L (4-35); Albumin Level 2.3 g/dL (3.5-5.1); Alkaline Phosphatase 147 U/L (38-126); Anion Gap 12 mmol/L (8-16); Aspartate Amino Transferase 189 U/L (14-36); Bilirubin,Total 1.6 mg/dL (0.2-1.3); Blood Urea Nitrogen 41 mg/dL (7-17); Calcium 7.7 mg/dL (8.4-10.2); Carbon Dioxide 17 mmol/L (22-30); Chloride 109 mmol/L (98-107); Estimated CRCL calculation 48 ml/min; Estimated Glomerular Filt Rate > 60; Glucose 229 mg/dL (65-110); Magnesium 2.2 mg/dL (1.6-2.3); Phosphorus 2.6 mg/dL (2.5-4.5); Sodium 138 mmol/L (137-145)
[2021-06-09] MEDS: INSULIN GLARGINE (*BKC) 100 UNITS/ML 30 UNITS SUB-Q (07:56)
[2021-06-09 08:24] LABS: Glucose Point of Care 250 mg/dl (65-105)
--- NOTE | 2021-06-09 08:55 | PCSTNOTE ---
Please refer to the Bedside Swallow Evaluation in the EMR. Please note, silent aspiration cannot be ruled out at bedside.
--- NOTE | 2021-06-09 10:47 | WPDINTPN ---
Progress Note: A&P Assessment and Plan (1) Sepsis: Code(s): A41.9 - Sepsis, unspecified organism Status: Acute Assessment and Plan: patient presented with findings which meet the criteria for sepsis although source is not fully clear this time. CT abdomen pelvis does suggest proctitis but the findings are not impressive. Mild diffuse tenderness to palpation throughout abdomen but abdomen appears benign on exam her UA is negative, CT of the abdomen pelvis show clear bases of lungs except some atelectasis and fusion blood cultures have been sent and are pending patient is on empiric antibiotics which will be continued lactic acid has improved patient received cautious amount of IV fluids due to diffuse anasarca but is now off not requiring vasopressors at this time (2) CHF (congestive heart failure): Code(s): I50.9 - Heart failure, unspecified Status: Acute Assessment and Plan: patient had echocardiogram in 03/25 which showed 1. Complete two-dimensional, color flow and Doppler transthoracic echocardiogram is performed. 2. There is moderate concentric increased left ventricular wall thickness. 3. Left ventricular systolic function is normal, estimated at 50-55%. 4. Left atrial chamber dimension is moderately enlarged. 5. There is mild aortic valve sclerosis. 6. There is mild mitral valve regurgitation. 7. There is mild tricuspid valve regurgitation. patient has diffuse anasarca and specially significantly lower extremity edema. this could be secondary to cirrhosis or right heart failure. Check BNP may need to repeat her echocardiogram (3) Pleural effusion: Code(s): J90 - Pleural effusion, not elsewhere classified Status: Acute Assessment and Plan: patient has large effusions but currently is not symptomatic as she is on room air will evaluate for thoracentesis once other acute issues are settled (4) DKA (diabetic ketoacidosis): Qualifiers: Diabetes mellitus complication detail: without coma Diabetes mellitus type: due to underlying condition Qualified Code(s): E08.10 - Diabetes mellitus due to underlying condition with ketoacidosis without coma Code(s): E11.10 - Type 2 diabetes mellitus with ketoacidosis without coma Status: Acute Assessment and Plan: patient presented with DKA she was given IV fluid bolus , IV fluid infusion and IV insulin drip anion gap has now closed and patient has been transitioned to subcutaneous insulin diet will be advanced and she is on Lantus and sliding scale insulin (5) Acute kidney injury: Code(s): N17.9 - Acute kidney failure, unspecified Status: Acute Assessment and Plan: likely prerenal from intravascular volume depletion creatinine has now normalized monitor urine output electrolytes creatinine CT abdomen pelvis did not show any hydronephrosis or stones she had recent renal ultrasound which showed medical renal disease (6) Anasarca: Code(s): R60.1 - Generalized edema Status: Acute Assessment and Plan: bilateral pleural effusion, diffuse lower extremity edema and anasarca likely secondary to cirrhosis or right heart failure or a combination of both. patient does have mention of pulmonary hypertension on her records from outside hospital but I do not have enough details about that albumin is 2.6 and elevated liver enzymes could be secondary to sepsis and shock. Her INR is 2.9 despite not being on any anticoagulation TSH is normal she had lower extremity Dopplers checked on last admission and were negative check right upper quadrant ultrasound may have to repeat echo (7) Atrial fibrillation with rapid ventricular response: Code(s): I48.91 - Unspecified atrial fibrillation Status: Acute Assessment and Plan: On Cardizem infusion for rate control start p.o. Cardizem try to wean off drip (8) Elevated liver enzym
[2021-06-09 11:11] LABS: Lactic Acid Reflex 1.7 mmol/L (0.7-2.1)
[2021-06-09 11:21] LABS: NT Pro B Type Natriuretic Pept 12100 pg/mL (5-100)
[2021-06-09 11:53] LABS: Glucose Point of Care 245 mg/dl (65-105)
[2021-06-09] MEDS: dilTIAZem HCL 60 MG TABLET PO ×2 (11:53→17:00)
[2021-06-09 16:09] LABS: Glucose Point of Care 195 mg/dl (65-105)
[2021-06-09 20:17] LABS: Glucose Point of Care 234 mg/dl (65-105)
[2021-06-10] VITALS (17 sets, daily range): BP systolic 91–132; BP diastolic 63–79; PULSE 74–121; RESP 12–20; TEMP 36.3–37.3; O2SAT 92–100
[2021-06-10] MEDS: dilTIAZem HCL 60 MG TABLET PO ×4 (00:12→18:29)
[2021-06-10 00:29] LABS: Glucose Point of Care 146 mg/dl (65-105)
[2021-06-10] MEDS: METOPROLOL TARTRATE INJ 5 MG/5 ML VIAL IV PUSH ×2 (01:59→08:00)
[2021-06-10 04:40] LABS: Hematocrit 22.1 % (37.0-47.0); Mean Corpuscular HGB Conc 30.8 g/dl (32-36); Mean Corpuscular Hemoglobin 25.4 pg (26-34); Mean Corpuscular Volume 82.5 fl (80-100); Mean Platelet Volume 10.1 fl (7.4-10.4); Platelet Count Result 199 k/mm3 (150-375); Red Blood Count 2.68 M/mm3 (4.2-5.4); Red Cell Distribution Width 23.7 % (11.5-14.5)
[2021-06-10 04:54] LABS: Alanine Aminotransferase 126 U/L (4-35); Albumin Level 2.3 g/dL (3.5-5.1); Alkaline Phosphatase 122 U/L (38-126); Anion Gap 6 mmol/L (8-16); Aspartate Amino Transferase 84 U/L (14-36); Bilirubin,Total 1.2 mg/dL (0.2-1.3); Blood Urea Nitrogen 37 mg/dL (7-17); Calcium 7.9 mg/dL (8.4-10.2); Carbon Dioxide 23 mmol/L (22-30); Chloride 109 mmol/L (98-107); Estimated CRCL calculation 43 ml/min; Estimated Glomerular Filt Rate > 60; Glucose 145 mg/dL (65-110); Magnesium 2.2 mg/dL (1.6-2.3); Phosphorus 2.2 mg/dL (2.5-4.5); Potassium 3.2 mmol/L (3.4-5.0); Sodium 138 mmol/L (137-145)
[2021-06-10 05:08] LABS: Hemoglobin 6.8 g/dL (12.0-15.0)
[2021-06-10] MEDS: LEVOTHYROXINE SODIUM 50 MCG TABLET PO (05:14)
[2021-06-10] MEDS: CENTRAL LINE FLUSH 10 ML IV PUSH ×4 (05:14→22:55)
[2021-06-10] MEDS: SODIUM CHLORIDE 0.9% IV 250 ML 30 ML IV CONT (06:56)
[2021-06-10] MEDS: POTASSIUM PHOS,M-BASIC-D-BASIC 40 MMOL in SODIUM CHLORIDE 0.9% IV 250 ML 43.89 MMOL IVPB (07:37)
[2021-06-10] MEDS: FUROSEMIDE INJ 40 MG/4 ML VIAL IV PUSH (08:31)
[2021-06-10 08:47] LABS: Glucose Point of Care 195 mg/dl (65-105)
[2021-06-10] MEDS: INSULIN GLARGINE (*BKC) 100 UNITS/ML 30 UNITS SUB-Q (09:12)
[2021-06-10] MEDS: POTASSIUM CHLORIDE 20 MEQ PACKET (FOR LIQUID) 40 MEQ PO (10:30)
[2021-06-10 10:36] LABS: INR 1.6; Partial Thromboplastin Time 30.7 SECONDS (22.3-36.8); Prothrombin Time 18.9 Seconds (11.1-14.7)
[2021-06-10] MEDS: ALBUMIN HUMAN 25% 25 GM/100 ML 100 ML IVPB ×2 (12:02→18:28)
--- NOTE | 2021-06-10 12:03 | PCFNICU ---
ICU Rounding Note: Pt current nutrition is DBCC/Pureed, Level 4 with Protein Modular of Braxton BID and diet supplement of Glucerna shakes BID. Last recorded weight is 74 kg. Bowel Motility:+Bm reported 06/10 Labs Reviewed: PO4 2.2,BUN 37, K 3.2,Glu 145,Hct 22.1.Hgb 6.8 Meds Noted:Cardizem, Lantus, NS, Zosyn, NS, Vancomycin. Skin: Deep Tissue-Coccyx. Additional Notes: Patient refused to eat breakfast today, was able to drink her diet supplement of Glucerna and Braxton BID. Patient remains drowsy. 1 unit of blood given today. PO intake encouraged. Agree with diet orders. Following daily in ICU rounds. RD will monitor every 3 days.
[2021-06-10] MEDS: METOPROLOL TARTRATE 50 MG TAB PO ×2 (12:14→21:00)
--- NOTE | 2021-06-10 12:25 | PM.IMPN ---
Progress Note: A&P Assessment and Plan (1) Sepsis: Code(s): A41.9 - Sepsis, unspecified organism Status: Acute Assessment and Plan: patient presented with findings which meet the criteria for sepsis although source is not fully clear this time. CT abdomen pelvis does suggest proctitis but the findings are not impressive. Mild diffuse tenderness to palpation throughout abdomen but abdomen appears benign on exam her UA is negative, CT of the abdomen pelvis show clear bases of lungs except some atelectasis and fusion blood cultures negative x2 patient is on empiric antibiotics, Zosyn and vancomycin lactic acid normalized patient received cautious amount of IV fluids due to diffuse anasarca but is now off not requiring vasopressors at this time (2) CHF (congestive heart failure): Code(s): I50.9 - Heart failure, unspecified Status: Acute Assessment and Plan: patient had echocardiogram in 03/22/2021 which showed 1. Complete two-dimensional, color flow and Doppler transthoracic echocardiogram is performed. 2. There is moderate concentric increased left ventricular wall thickness. 3. Left ventricular systolic function is normal, estimated at 50-55%. 4. Left atrial chamber dimension is moderately enlarged. 5. There is mild aortic valve sclerosis. 6. There is mild mitral valve regurgitation. 7. There is mild tricuspid valve regurgitation. patient has diffuse anasarca and specially significantly lower extremity edema. this could be secondary to cirrhosis or right heart failure. Patient's proBNP is 12,100 on 06/09/2021 -will repeat echocardiogram (3) Pleural effusion: Code(s): J90 - Pleural effusion, not elsewhere classified Status: Acute Assessment and Plan: patient has large effusions but currently is not symptomatic as she is on room air will evaluate for thoracentesis once other acute issues are settled (4) DKA (diabetic ketoacidosis): Qualifiers: Diabetes mellitus complication detail: without coma Diabetes mellitus type: due to underlying condition Qualified Code(s): E08.10 - Diabetes mellitus due to underlying condition with ketoacidosis without coma Code(s): E11.10 - Type 2 diabetes mellitus with ketoacidosis without coma Status: Acute Assessment and Plan: Patient presented with DKA on admission, was insulin infusion along with IV fluids, patient was transition to long-acting insulin subQ insulin. -continue diabetic diet -hemoglobin A1c 7.6 this admission (5) Acute kidney injury: Code(s): N17.9 - Acute kidney failure, unspecified Status: Acute Assessment and Plan: likely prerenal from intravascular volume depletion. Creatinine was 1.5 on admission creatinine has now normalized monitor urine output electrolytes creatinine CT abdomen pelvis did not show any hydronephrosis or stones she had recent renal ultrasound which showed medical renal disease (6) Anasarca: Code(s): R60.1 - Generalized edema Status: Acute Assessment and Plan: bilateral pleural effusion, diffuse lower extremity edema and anasarca likely secondary to cirrhosis or right heart failure or a combination of both. patient does have mention of pulmonary hypertension on her records from outside hospital but I do not have enough details about that albumin is 2.6 and elevated liver enzymes could be secondary to sepsis and shock. Her INR is 2.9 despite not being on any anticoagulation TSH is normal she had lower extremity Dopplers checked on last admission and were negative Right upper quadrant ultrasound 06/08/2021 showed intrahepatic and extrahepatic bile duct dilatation status post cholecystectomy (7) Atrial fibrillation with rapid ventricular response: Code(s): I48.91 - Unspecified atrial fibrillation Status: Acute Assessment and Plan: Patient off Cardizem infusion -is on p.o. Cardizem and will
[2021-06-10 13:22] LABS: Glucose Point of Care 260 mg/dl (65-105)
[2021-06-10 13:22] LABS: Glucose Point of Care 258 mg/dl (65-105)
[2021-06-10] MEDS: INSULIN ASPART (*BKC) 100 UNITS/ML SUB-Q ×2 (13:22→21:02)
[2021-06-10] MEDS: PANTOPRAZOLE SODIUM IV 40 MG VIAL IV PUSH ×2 (14:28→21:01)
[2021-06-10 17:16] LABS: Glucose Point of Care 179 mg/dl (65-105)
[2021-06-10 20:28] LABS: SARS-CoV-2 RNA PCR Negative
[2021-06-10 20:45] LABS: Glucose Point of Care 216 mg/dl (65-105)
[2021-06-11] VITALS (7 sets, daily range): BP systolic 115–146; BP diastolic 56–94; PULSE 59–89; RESP 18–20; TEMP 36.4–36.6; O2SAT 96–100
--- NOTE | 2021-06-11 | ECHO_ITS ---
Patient Info Name: Regine Mittal Age: 76 years : 1945 Gender: Female Ht: 65 in Wt: 163 lbs BSA: 1.86 m2 HR: 98 bpm BP: 109 / 63 mmHg Heart Rhythm: Atrial Fibrillation Exam Date: 06/11/2021 2:04 PM Exam Location: [facility] Patient Status: Inpatient Admit Date: 06/08/2021 Staff Ordering Physician: Shikha Armenta MD Reconciliation Analyst: Tru Kim, ANTHONY, RT Attending Provider: Lynn Obregon DO Referring Physician: [facility] [place] ; Exam Type: CA echo doppler color flow Study Info Indications I50.9 - Heart failure, unspecified Complete two-dimensional, color flow and Doppler transthoracic echocardiogram is performed. Strain analysis performed. Summary 1. Complete two-dimensional, color flow and Doppler transthoracic echocardiogram is performed. 2. Strain analysis performed. 3. Left ventricular chamber dimension is low normal. 4. Left ventricular systolic function is normal, estimated at 50-55%. 5. There is moderately increased left ventricular wall thickness. 6. The left ventricular diastolic function is abnormal. 7. Global longitudinal strain is abnormal at -4 %. 8. Left atrial chamber dimension is moderately enlarged. 9. Right atrial chamber dimension is mildly enlarged. 10. There is severe aortic valve stenosis with a peak velocity of 317 cm/s, mean gradient of 18 mmHg, and aortic valve area of 0.8 cm2. 11. There is moderate aortic valve regurgitation. 12. There is severe aortic valve calcification. 13. There is mild mitral valve stenosis. 14. There is mild to moderate mitral valve regurgitation. 15. The mitral valve annulus is severely calcified. 16. There is moderate tricuspid valve regurgitation. 17. Moderate pulmonary hypertension, estimated pulmonary arterial systolic pressure is 46 mmHg. 18. There is moderate pulmonic regurgitation. Left Ventricle Left ventricular chamber dimension is low normal. Left ventricular systolic function is normal, estimated at 50-55%. There is moderately increased left ventricular wall thickness. The left ventricular diastolic function is abnormal. Global longitudinal strain is abnormal at -4 %. Right Ventricle Right ventricular chamber dimension is normal. Right ventricular systolic function is normal. Left Atria Left atrial chamber dimension is moderately enlarged. Right Atria Right atrial chamber dimension is mildly enlarged. Atrial Septum Intact interatrial septum visualized by color flow imaging. Aortic Valve The aortic valve is trileaflet. There is severe aortic valve stenosis with a peak velocity of 317 cm/s, mean gradient of 18 mmHg, and aortic valve area of 0.8 cm2. There is moderate aortic valve regurgitation. There is severe aortic valve calcification. Pulmonic Valve The pulmonic valve is normal. There is no pulmonic valve stenosis. There is moderate pulmonic regurgitation. Mitral Valve The mitral valve has thickened leaflets. There is mild mitral valve stenosis. There is mild to moderate mitral valve regurgitation. The mitral valve annulus is severely calcified. Tricuspid Valve The tricuspid valve leaflets are normal. There is no significant tricuspid valve stenosis. There is moderate tricuspid valve regurgitation. Moderate pulmonary hypertension, estimated pulmonary arterial systolic pressure is 46 mmHg. Pericardium/Pleural The pericardium appears normal. There is trivial pericardial effusion. Inferior Vena Cava Dilated inferior vena
[2021-06-11] MEDS: ALBUMIN HUMAN 25% 25 GM/100 ML 100 ML IVPB ×2 (00:10→05:53)
[2021-06-11] MEDS: dilTIAZem HCL 60 MG TABLET PO ×4 (04:49→17:23)
[2021-06-11 05:04] LABS: Hematocrit 23.7 % (37.0-47.0); Hemoglobin 7.4 g/dL (12.0-15.0); Mean Corpuscular HGB Conc 31.2 g/dl (32-36); Mean Corpuscular Volume 83.2 fl (80-100); Mean Platelet Volume 10.3 fl (7.4-10.4); Platelet Count Result 154 k/mm3 (150-375); Red Blood Count 2.85 M/mm3 (4.2-5.4); Red Cell Distribution Width 21.6 % (11.5-14.5); White Blood Count 21.7 K/mm3 (4.5-10.0)
[2021-06-11 05:30] LABS: Alanine Aminotransferase 85 U/L (4-35); Albumin Level 3.1 g/dL (3.5-5.1); Alkaline Phosphatase 109 U/L (38-126); Anion Gap 8 mmol/L (8-16); Aspartate Amino Transferase 54 U/L (14-36); Bilirubin,Total 1.4 mg/dL (0.2-1.3); Blood Urea Nitrogen 36 mg/dL (7-17); Calcium 7.9 mg/dL (8.4-10.2); Carbon Dioxide 22 mmol/L (22-30); Chloride 102 mmol/L (98-107); Estimated CRCL calculation 43 ml/min; Estimated Glomerular Filt Rate > 60; Glucose 81 mg/dL (65-110); Phosphorus 3.1 mg/dL (2.5-4.5); Potassium 3.5 mmol/L (3.4-5.0); Sodium 132 mmol/L (137-145)
[2021-06-11] MEDS: LEVOTHYROXINE SODIUM 50 MCG TABLET PO (06:11)
[2021-06-11] MEDS: CENTRAL LINE FLUSH 10 ML IV PUSH ×3 (06:11→22:18)
[2021-06-11 07:20] LABS: Glucose Point of Care 117 mg/dl (65-105)
[2021-06-11] MEDS: METOPROLOL TARTRATE 50 MG TAB PO ×2 (08:28→22:17)
[2021-06-11] MEDS: INSULIN GLARGINE (*BKC) 100 UNITS/ML 30 UNITS SUB-Q (08:28)
[2021-06-11] MEDS: PANTOPRAZOLE SODIUM IV 40 MG VIAL IV PUSH ×2 (08:28→22:17)
--- NOTE | 2021-06-11 09:19 | PC.NURSE ---
NOTIFIED PATIENTS DAUGHTER LUKAS THAT SHE WAS MOVED TO ROOM 245.
--- NOTE | 2021-06-11 09:30 | PM.IMPN ---
Progress Note: A&P Assessment and Plan (1) Sepsis: Code(s): A41.9 - Sepsis, unspecified organism Status: Acute Assessment and Plan: patient presented with findings which meet the criteria for sepsis; and obvious source of the infection has not been identified at this time. CT abdomen pelvis does suggest proctitis but the findings are not impressive. Mild diffuse tenderness to palpation throughout abdomen but abdomen appears benign on exam her UA is negative, CT of the abdomen pelvis show clear bases of lungs except some atelectasis and fusion blood cultures negative x2 patient is on empiric antibiotics, Zosyn and vancomycin lactic acid normalized patient received cautious amount of IV fluids due to diffuse anasarca; IV fluids are currently being held. not requiring vasopressors at this time. Patient appears to be stable for transfer to the medical floor. (2) CHF (congestive heart failure): Code(s): I50.9 - Heart failure, unspecified Status: Acute Assessment and Plan: At presentation, patient has diffuse anasarca and specially significantly lower extremity edema, concerning for right heart failure Patient's proBNP is 12,100 on 06/09/2021 -her most recent echocardiogram showed a normal left ventricular function 03/22/2021. - (3) Pleural effusion: Code(s): J90 - Pleural effusion, not elsewhere classified Status: Acute Assessment and Plan: patient has large effusions but currently is not symptomatic as she is on room air Plan for thoracentesis. (4) DKA (diabetic ketoacidosis): Qualifiers: Diabetes mellitus complication detail: without coma Diabetes mellitus type: due to underlying condition Qualified Code(s): E08.10 - Diabetes mellitus due to underlying condition with ketoacidosis without coma Code(s): E11.10 - Type 2 diabetes mellitus with ketoacidosis without coma Status: Acute Assessment and Plan: Patient presented with DKA on admission, was insulin infusion along with IV fluids, patient was transition to long-acting insulin subQ insulin. -fasting blood glucose was 81. Accu-Chek was 117. -continue diabetic diet. [place] oral intake. -hemoglobin A1c 7.6 this admission (5) Acute kidney injury: Code(s): N17.9 - Acute kidney failure, unspecified Status: Acute Assessment and Plan: Recover known oliguric acute kidney injury; it was likely prerenal from intravascular volume depletion. Creatinine was 1.5 on admission creatinine has now normalized monitor urine output electrolytes creatinine CT abdomen pelvis did not show any hydronephrosis or stones she had recent renal ultrasound which showed medical renal disease (6) Anasarca: Code(s): R60.1 - Generalized edema Status: Acute Assessment and Plan: bilateral pleural effusion, diffuse lower extremity edema and anasarca likely secondary to cirrhosis or right heart failure or a combination of both. patient does have mention of pulmonary hypertension on her records from outside hospital but I do not have enough details about that albumin is 2.6 and elevated liver enzymes could be secondary to sepsis and shock. Her INR is 2.9 despite not being on any anticoagulation. INR has improved to 1.6 today and will plan for thoracentesis. TSH is normal she had lower extremity Dopplers checked on last admission and were negative Right upper quadrant ultrasound 06/08/2021 showed intrahepatic and extrahepatic bile duct dilatation status post cholecystectomy (7) Atrial fibrillation with rapid ventricular response: Code(s): I48.91 - Unspecified atrial fibrillation Status: Acute Assessment and Plan: Patient off Cardizem infusion -is on p.o. Cardizem and will switch p.o. metoprolol (8) Elevated liver enzymes: Code(s): R74.8 - Abnormal levels of other serum enzymes Status: Acute Assessment and Plan: likely secondary to sepsi
[2021-06-11 11:32] LABS: Glucose Point of Care 212 mg/dl (65-105)
--- NOTE | 2021-06-11 12:06 | WPDINFPN2 ---
Progress Note: A&P Assessment and Plan (1) Leukocytosis (leucocytosis): Qualifiers: Leukocytosis type: unspecified Qualified Code(s): D72.829 - Elevated white blood cell count, unspecified Code(s): D72.829 - Elevated white blood cell count, unspecified Status: Acute Assessment and Plan: 1. Leukocytosis, suspect reactive 2. Pleural effusion 3. DKA 4. Recent L hip surgery, no surgical site infection REC No empiric antibiotics. If there is enough fluid to sample, and formula suggests infection, then ceftriaxone would be appropriate while fluid culture in process. Subjective Date/time seen: 06/11/21 12:06 Objective Data Vital Signs Vital Signs: Vital Signs - 24 hr 06/10/21 12:14 06/10/21 14:00 06/10/21 16:00 Temperature 36.3 C L Pulse Rate 109 H 74 80 Respiratory Rate 20 19 Blood Pressure 114/68 Pulse Oximetry 95 06/10/21 20:00 06/10/21 21:00 06/11/21 08:00 Temperature 37.3 C 36.4 C Pulse Rate 82 83 72 Respiratory Rate 18 18 Blood Pressure 109/63 146/73 H Pulse Oximetry 93 97 06/11/21 08:28 06/11/21 11:35 Temperature Pulse Rate 75 87 Respiratory Rate Blood Pressure 127/56 L Pulse Oximetry Intake/Output Intake/Output: Intake & Output 06/08/21 06/09/21 06/10/21 06/11/21 23:59 23:59 23:59 23:59 Intake Total 4140 1050 2416 950 Output Total 900 1400 2650 700 Balance 3240 -350 -234 250 Meds/Results Medications: Active Medications Generic Name Dose Route Start Last Admin Trade Name Freq PRN Reason Stop Dose Admin Alteplase, Recombinant 2 mg 06/11/21 11:47 Alteplase 2 Mg Vial (Cathflo) IV PUSH ONCE PRN Line Occlusion Dextrose 12.5 gm 06/07/21 21:32 Dextrose 50% 25 Gm/50 Ml Syringe IV PUSH PRN PRN Hypoglycemia Protocol Diltiazem HCl 60 mg 06/09/21 12:00 06/11/21 11:41 Diltiazem Hcl 60 Mg Tablet PO 60 mg Q6HR TERESA Administration Glucagon 1 mg 06/07/21 21:32 Glucagon For Inj 1 Mg Vial IM PRN PRN Hypoglycemia Protocol Glucose 15 gm 06/07/21 21:32 Glucose Oral Gel 15 Gm Of Glucse In 37.5 Gm Tube PO PRN PRN Hypoglycemia Protocol Dextrose 1,000 mls @ 100 mls/hr 06/07/21 21:32 Dextrose 5% 1,000 Ml IVPB PRN PRN Hypoglycemia Protocol Insulin Aspart 4 - 8 units 06/11/21 11:50 Insulin Aspart (*Bkc) 100 Units/Ml SUB-Q ACHS TERESA Protocol Insulin Glargine 30 units 06/09/21 09:00 06/11/21 08:28 Insulin Glargine (*Bkc) 100 Units/Ml SUB-Q 30 units QAM TERESA Administration Levothyroxine Sodium 50 mcg 06/09/21 06:30 06/11/21 06:11 Levothyroxine Sodium 50 Mcg Tablet PO 50 mcg DAILY@0630 TERESA Administration Metoprolol Tartrate 50 mg 06/10/21 12:00 06/11/21 08:28 Metoprolol Tartrate 50 Mg Tab PO 50 mg Q12HR TERESA Administration Pantoprazole Sodium 40 mg 06/10/21 21:00 06/11/21 08:28 Pantoprazole Sodium Iv 40 Mg Vial IV PUSH 40 mg Q12HR TERESA Administration Sodium Chloride 10 ml 06/08/21 06:00 06/11/21 06:11 Central Line Flush IV PUSH 10 ml Q8HR TERESA Administration Sodium Chloride 10 ml 06/08/21 18:00 06/10/21 18:29 Central Line Flush IV PUSH 10 ml DAILY@1800 TERESA Administration Sodium Chloride 20 ml 06/07/21 23:09 Central Line Flush IV PUSH PRN PRN after blood draws Radiology Results: ITS Impressions Chest X-Ray 06/08/21 09:57 IMPRESSION: 1. Small left pleural effusion with left basilar atelectasis. 2. Likely occult small right subpulmonic effusion indiscernible on the current radiographs but evident on CT performed a couple hours later. 3. Cardiomegaly. Head CT 06/08/21 13:09 IMPRESSION: 1. No acute intracranial process. 2. Small old infarct at the medial right frontal lobe. Abdomen/Pelvis CT 06/08/21 14:08 IMPRESSION: 1. Small bilateral pleural effusions, right greater than left with associated compressive atelectasis in the lowe
--- NOTE | 2021-06-11 12:14 | PCNFU ---
Nutrition Follow-Up Complete: Inadequate Oral Intake as related to cognition as evidenced by poor po intake. Goal: Adequate Intake of at least 75% of meals/supplements Patient is progressing towards goal. We will continue current goal. Pt current nutrition is DBCC/Pureed, Level 4 with Glucerna shakes BID and Braxton BID Last recorded weight is 74 kg-stable Bowel Motility:+BM reported 06/10 Labs Reviewed:PO4 2.2,K 3.2,BUN 37, Alb 2.3,Glu 145, Hgb 6.8,Hct 22.1 Meds Noted:Protonix, Lopressor, Lantus,Cardizem, Synthroid Skin:Deep Tissue-coccyx. Additional Notes: Patient is more alert today, eating oatmeal at the time of my visit. Patient is consuming the Glucerna shakes and Braxton. Agree with diet orders. Monitoring: RD will monitor every 5 days.
[2021-06-11] MEDS: ALTEPLASE 2 MG VIAL (CATHFLO) IV PUSH (12:29)
--- NOTE | 2021-06-11 13:55 | PCCDE ---
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 Humalog insulin. BASAL: MN 1.1 units/hr, 0400 1.3 units/hr (24 hr total = 30.4 units) BOLUS: CARB RATIO=10, Sensitivity=35, target BG= 120-150mg/dl Pt's pump is at home and pt currently receiving 30 units Lantus am and high dose correction scale ACHS. Called Dr Luz and reported/discussed this info. Pt's serum glucose this am was 81mg/dl after receiving high dose correction around midnight last night. Recommended to change correction to medium dose and AC only. PO intake is poor but once intake improves pt would require 6 units Novolog AC based on her carb ratio and receiving 60gm carb on consistent carb diet.
--- NOTE | 2021-06-11 14:21 | PC.NURSE ---
Patient to US and CT per stretcher.
--- NOTE | 2021-06-11 15:05 | PC.NURSE ---
Patient returned from CT and US per stretcher
[2021-06-11 17:36] LABS: Glucose Point of Care 92 mg/dl (65-105)
--- NOTE | 2021-06-11 18:40 | CONS_ITS ---
DATE OF CONSULTATION: 06/11/2021 REASON FOR CONSULTATION: Leukocytosis. HISTORY OF PRESENT ILLNESS: A 76-year-old female who is a poor historian. She had left hip fracture in May that she believes was treated here, but in fact was treated at [facility] with surgery on 05/31/2021. She was transferred to a retirement without insulin pump renewal. Ambulance was called on June 07 due to desaturation. She also had hyperventilation. There she was in atrial fibrillation with rapid ventricular response, and she had decreased level of consciousness. Exam here was notable for hypotension along with mottling which has subsequently improved. Here she has been treated for DKA and marked metabolic acidosis. She was found to have leukocytosis as well as been given piperacillin and vancomycin empirically. Consultation requested today. She has not required any type of surgical intervention. She was in intensive care unit initially, but now is on the floor. She did have a triple-lumen catheter placed, which remains in place now. She has known peripheral vascular disease with the mottling. ALLERGIES: NONE PERTINENT. HABITS: No tobacco or alcohol. Ex-smoker. PRESENT MEDICATIONS: No immunosuppressants. PAST MEDICAL HISTORY: In addition to the above, stroke in March this year, chronic anemia, hyponatremia, depression, hyperlipidemia, hypertension, macular degeneration, PAF, rheumatoid arthritis, on methotrexate, appendectomy, arthroscopic shoulder surgery bilaterally, cataract extractions, colon polyp removal, hysterectomy, lap band procedure, hiatal hernia, ORIF. She also has a left knee scar which she says is from surgery, but does not remember the details. FAMILY HISTORY: Not pertinent to her present illness. SOCIAL HISTORY: She lives with her stepdaughter and son-in-law, retired and lives locally. REVIEW OF SYSTEMS: Limited by the patient's memory. 14-point review otherwise negative. PHYSICAL EXAMINATION: GENERAL: Elderly female who appears older than her actual age, in no acute distress. VITAL SIGNS: Afebrile, 127/56, 18, 87, 97% on room air. SKIN: Warm and dry. No generalized rash. EENT: The conjunctivae are normal. Pupils equal, round. The oropharynx, oral mucosa normal. No paranasal sinus inflammation. NECK: No masses, thyromegaly or meningismus. LUNGS: Clear to auscultation and percussion. Good air entry. BACK: She has no spinal tenderness. No CVAT. CARDIAC: Regular rate and rhythm without murmur, gallop, or rub. ABDOMEN: Soft and nontender. No mass. No organomegaly. No evidence of ascites. EXTREMITIES: 2+ pitting edema of both feet with skin abrasions. No evidence of erythema, warmth, tenderness, or sinus tracts. LABORATORY DATA: Blood cultures no growth after 4 days incubation. White blood cell count as an outpatient, last check 03/30 was 5.1, on arrival here 35.3, up to 40.1 on hospital day 3, now 21.7. Hemoglobin 7.4, up from 6.8. No differential done in the last 3 days, but on the 5th, 92% PMNs. Blood gases 7.10, 14, 123, and she was more acidotic on arrival. Sodium is 132. Electrolytes otherwise normal. BUN 36, creatinine 0.9, glucose 212. Hemoglobin A1c 7.6%. Lactate was 9.7, following day was down to 1.7. Transaminases were 10 times normal, now back to twice normal. Alkaline phosphatase is normal. BNP down. Albumin low. Urinalysis, no evidence of infection. Hepatitis panel is nonreactive. Coronavirus assay nonreactive. RADIOLOGY: Abdominal ultrasound, thyroid dilatation, cholecystectomy changes, right pleural effusion. Abdomen pelvic CT, small pleural effusions, tiny renal stone, wall thickening of the rectum, body wall edema, cardiomegaly. ASSESSMENT: 1. Leukocy
[2021-06-11] MEDS: HYDROcodone/acetaminophen (*CRX) 10-325 MG TABLET 1 TAB PO (20:38)
[2021-06-11 23:20] LABS: Glucose Point of Care 184 mg/dl (65-105)
[2021-06-12] MEDS: dilTIAZem HCL 60 MG TABLET PO ×4 (00:43→18:16)
[2021-06-12 03:59] LABS: Hematocrit 25.7 % (37.0-47.0); Hemoglobin 7.9 g/dL (12.0-15.0); Mean Corpuscular HGB Conc 30.7 g/dl (32-36); Mean Corpuscular Hemoglobin 25.7 pg (26-34); Mean Corpuscular Volume 83.7 fl (80-100); Mean Platelet Volume 9.7 fl (7.4-10.4); Platelet Count Result 146 k/mm3 (150-375); Red Blood Count 3.07 M/mm3 (4.2-5.4); Red Cell Distribution Width 21.3 % (11.5-14.5); White Blood Count 16.8 K/mm3 (4.5-10.0)
[2021-06-12 04:11] LABS: Alanine Aminotransferase 66 U/L (4-35); Albumin Level 2.9 g/dL (3.5-5.1); Alkaline Phosphatase 99 U/L (38-126); Anion Gap 7 mmol/L (8-16); Aspartate Amino Transferase 34 U/L (14-36); Bilirubin,Total 1.2 mg/dL (0.2-1.3); Blood Urea Nitrogen 31 mg/dL (7-17); Carbon Dioxide 23 mmol/L (22-30); Chloride 101 mmol/L (98-107); Estimated CRCL calculation 43 ml/min; Estimated Glomerular Filt Rate > 60; Glucose 145 mg/dL (65-110); Magnesium 2.1 mg/dL (1.6-2.3); Phosphorus 3.1 mg/dL (2.5-4.5); Potassium 3.6 mmol/L (3.4-5.0); Sodium 131 mmol/L (137-145)
[2021-06-12 04:47] LABS: Vancomycin Trough 13.5 ug/mL (10.0-20.0)
[2021-06-12 06:00] VITALS: BP 147/72; PULSE 87; RESP 20; TEMP 36.4; O2SAT 99
[2021-06-12] MEDS: LEVOTHYROXINE SODIUM 50 MCG TABLET PO (06:33)
[2021-06-12] MEDS: CENTRAL LINE FLUSH 10 ML IV PUSH ×3 (06:33→22:47)
[2021-06-12 08:02] LABS: Glucose Point of Care 143 mg/dl (65-105)
[2021-06-12 09:10] VITALS: PULSE 88
[2021-06-12] MEDS: INSULIN GLARGINE (*BKC) 100 UNITS/ML 30 UNITS SUB-Q (09:10)
[2021-06-12] MEDS: METOPROLOL TARTRATE 50 MG TAB PO ×2 (09:10→22:46)
[2021-06-12] MEDS: PANTOPRAZOLE SODIUM IV 40 MG VIAL IV PUSH ×2 (09:11→22:46)
[2021-06-12 11:27] LABS: Basophils Percent Auto 0.2 % (0.2-1.2); Eosinophils Absolute Auto 0.1 K/mm3 (0-0.3); Eosinophils Percent Auto 0.5 % (0-4.4); Hematocrit 27.8 % (37.0-47.0); Hemoglobin 8.6 g/dL (12.0-15.0); Immature Granulocyte Absolute 0.19 K/mm3 (0.00-0.031); Immature Granulocyte Percent A 1.1 % (0-0.5); Lymphocytes Absolute Auto 0.74 K/mm3 (0.9-3.2); Lymphocytes Percent Auto 4.1 % (18.3-44.2); Mean Corpuscular HGB Conc 30.9 g/dl (32-36); Mean Corpuscular Hemoglobin 25.9 pg (26-34); Mean Corpuscular Volume 83.7 fl (80-100); Mean Platelet Volume 10.8 fl (7.4-10.4); Monocytes Absolute Auto 0.7 K/mm3 (0.1-0.6); Monocytes Percent Auto 4.1 % (2.6-8.5); Neutrophils Absolute Auto 16.1 K/mm3 (1.3-6.7); Nucleated Red Blood Cells Perc 0.1 % (0.0-0.2); Platelet Count Result 176 k/mm3 (150-375); Red Blood Count 3.32 M/mm3 (4.2-5.4); Red Cell Distribution Width 21.4 % (11.5-14.5); White Blood Count 17.9 K/mm3 (4.5-10.0)
[2021-06-12 11:41] LABS: Iron 23 ug/dL (37-170)
[2021-06-12 11:46] LABS: Transferrin 151 mg/dL (206-381)
[2021-06-12 11:51] LABS: Percent Iron Saturation 10 % (20-50)
[2021-06-12 12:05] LABS: Glucose Point of Care 179 mg/dl (65-105)
[2021-06-12 13:01] LABS: Vitamin B12 > 1000.0 pg/mL (239-931)
[2021-06-12 14:25] VITALS: BP 146/71; PULSE 67; RESP 16; TEMP 36.6; O2SAT 96
[2021-06-12 16:38] LABS: Glucose Point of Care 173 mg/dl (65-105)
[2021-06-12 19:42] VITALS: BP 135/80; PULSE 75; RESP 17; TEMP 37.1; O2SAT 97
--- NOTE | 2021-06-12 20:39 | P.PNIM_ITS ---
Progress Note: A&P Assessment and Plan (1) Sepsis: Code(s): A41.9 - Sepsis, unspecified organism Status: Acute Assessment and Plan: patient presented with findings which meet the criteria for sepsis; and obvious source of the infection has not been identified at this time. CT abdomen pelvis does suggest proctitis but the findings are not impressive. Mild diffuse tenderness to palpation throughout abdomen but abdomen appears benign on exam her UA is negative, CT of the abdomen pelvis show clear bases of lungs except some atelectasis and fusion blood cultures negative x2 patient is on empiric antibiotics, Zosyn and vancomycin lactic acid normalized patient received cautious amount of IV fluids due to diffuse anasarca; IV fluids are currently being held. not requiring vasopressors at this time. Patient appears to be stable for transfer to the medical floor. (2) CHF (congestive heart failure): Code(s): I50.9 - Heart failure, unspecified Status: Acute Assessment and Plan: At presentation, patient has diffuse anasarca and specially significantly lower extremity edema, concerning for right heart failure Patient's proBNP is 12,100 on 06/09/2021 -her most recent echocardiogram showed a normal left ventricular function 03/22/2021. - (3) Pleural effusion: Code(s): J90 - Pleural effusion, not elsewhere classified Status: Acute Assessment and Plan: patient has large effusions but currently is not symptomatic as she is on room air Plan for thoracentesis. (4) DKA (diabetic ketoacidosis): Qualifiers: Diabetes mellitus complication detail: without coma Diabetes mellitus type: due to underlying condition Qualified Code(s): E08.10 - Diabetes mellitus due to underlying condition with ketoacidosis without coma Code(s): E11.10 - Type 2 diabetes mellitus with ketoacidosis without coma Status: Acute Assessment and Plan: Patient presented with DKA on admission, was insulin infusion along with IV fluids, patient was transition to long-acting insulin subQ insulin. -fasting blood glucose was 145. Accu-Chek was in the 143-179 range -continue diabetic diet. [place] oral intake. -hemoglobin A1c 7.6 this admission (5) Acute kidney injury: Code(s): N17.9 - Acute kidney failure, unspecified Status: Acute Assessment and Plan: Recover known oliguric acute kidney injury; it was likely prerenal from intravascular volume depletion. Creatinine was 1.5 on admission creatinine has now normalized monitor urine output electrolytes creatinine CT abdomen pelvis did not show any hydronephrosis or stones she had recent renal ultrasound which showed medical renal disease (6) Anasarca: Code(s): R60.1 - Generalized edema Status: Acute Assessment and Plan: bilateral pleural effusion, diffuse lower extremity edema and anasarca likely secondary to cirrhosis or right heart failure or a combination of both. patient does have mention of pulmonary hypertension on her records from outside hospital but I do not have enough details about that albumin is 2.6 and elevated liver enzymes could be secondary to sepsis and shock. Her INR is 2.9 despite not being on any anticoagulation. INR has improved to 1.6 today and will plan for thoracentesis. TSH is normal she had lower extremity Dopplers checked on last admission and were negative Right upper quadrant ultrasound 06/08/2021 showed intrahepatic and extrahepatic bile duct dilatation status post cholecystectomy (7) Atrial fibrillation with rapid ventricular response: Code(s):
[2021-06-12 22:46] VITALS: PULSE 75
[2021-06-12 23:38] LABS: Glucose Point of Care 156 mg/dl (65-105)
[2021-06-13] MEDS: dilTIAZem HCL 60 MG TABLET PO ×5 (00:17→23:51)
[2021-06-13 03:19] VITALS: BP 154/64; PULSE 90; RESP 17; TEMP 36.2; O2SAT 96
[2021-06-13 04:47] LABS: Basophils Absolute Auto 0.1 K/mm3 (0.0-0.1); Basophils Percent Auto 0.3 % (0.2-1.2); Eosinophils Absolute Auto 0.2 K/mm3 (0-0.3); Eosinophils Percent Auto 1.1 % (0-4.4); Hematocrit 30.3 % (37.0-47.0); Hemoglobin 9.5 g/dL (12.0-15.0); Lymphocytes Absolute Auto 1.51 K/mm3 (0.9-3.2); Lymphocytes Percent Auto 7.4 % (18.3-44.2); Mean Corpuscular HGB Conc 31.4 g/dl (32-36); Mean Corpuscular Volume 82.8 fl (80-100); Monocytes Absolute Auto 1.3 K/mm3 (0.1-0.6); Monocytes Percent Auto 6.6 % (2.6-8.5); Neutrophils Percent Auto 83.6 % (45.5-73.1); Platelet Count Result 217 k/mm3 (150-375); Red Blood Count 3.66 M/mm3 (4.2-5.4); Red Cell Distribution Width 21.4 % (11.5-14.5); White Blood Count 20.3 K/mm3 (4.5-10.0)
[2021-06-13 05:08] LABS: Alanine Aminotransferase 51 U/L (4-35); Albumin Level 2.8 g/dL (3.5-5.1); Alkaline Phosphatase 111 U/L (38-126); Anion Gap 8 mmol/L (8-16); Aspartate Amino Transferase 29 U/L (14-36); Bilirubin,Total 0.9 mg/dL (0.2-1.3); Blood Urea Nitrogen 25 mg/dL (7-17); Calcium 8.2 mg/dL (8.4-10.2); Carbon Dioxide 22 mmol/L (22-30); Chloride 103 mmol/L (98-107); Estimated CRCL calculation 54 ml/min; Estimated Glomerular Filt Rate > 60; Glucose 51 mg/dL (65-110); Magnesium 1.9 mg/dL (1.6-2.3); Potassium 3.5 mmol/L (3.4-5.0); Sodium 133 mmol/L (137-145)
--- NOTE | 2021-06-13 05:14 | PC.NURSE ---
Critical BG of 51 at 0508, pt given orange juice, recheck in 15 min.
[2021-06-13 05:37] LABS: Platelet Estimate Adequate (Adequate)
[2021-06-13 05:38] LABS: Anisocytosis 1+ (NORMAL)
[2021-06-13 05:46] LABS: Glucose Point of Care 65 mg/dl (65-105)
[2021-06-13 06:31] LABS: Glucose Point of Care 172 mg/dl (65-105)
[2021-06-13 06:43] LABS: Glucose Pleural Fluid 168 mg/dL; LDH Pleural Fluid 47 U/L; Total Protein Pleural Fluid <3.0 g/dL
[2021-06-13] MEDS: LEVOTHYROXINE SODIUM 50 MCG TABLET PO (06:46)
[2021-06-13] MEDS: CENTRAL LINE FLUSH 10 ML IV PUSH ×2 (06:47→12:21)
--- NOTE | 2021-06-13 08:04 | PM.IMPN ---
Progress Note: A&P Assessment and Plan (1) Sepsis: Code(s): A41.9 - Sepsis, unspecified organism Status: Acute Assessment and Plan: patient presented with findings which meet the criteria for sepsis; and obvious source of the infection has not been identified at this time. CT abdomen pelvis does suggest proctitis but the findings are not impressive. Mild diffuse tenderness to palpation throughout abdomen but abdomen appears benign on exam her UA is negative, CT of the abdomen pelvis show clear bases of lungs except some atelectasis and fusion. Blood cultures negative x2 patient was placed on empiric antibiotics, Zosyn and vancomycin lactic acid normalized patient received cautious amount of IV fluids due to diffuse anasarca; IV fluids are currently being held. not requiring vasopressors at this time. All cultures have remained unrevealing. Patient appears to be stable for discharge (2) CHF (congestive heart failure): Code(s): I50.9 - Heart failure, unspecified Status: Acute Assessment and Plan: At presentation, patient has diffuse anasarca and specially significantly lower extremity edema, concerning for right heart failure Patient's proBNP is 12,100 on 06/09/2021 -her most recent echocardiogram showed a normal left ventricular function 03/22/2021. - (3) Pleural effusion: Code(s): J90 - Pleural effusion, not elsewhere classified Status: Acute Assessment and Plan: patient has large effusions but currently is not symptomatic as she is on room air Thoracentesis was performed with 650 cc of pleural fluid drained. Follow-up pending cultures.. (4) DKA (diabetic ketoacidosis): Qualifiers: Diabetes mellitus complication detail: without coma Diabetes mellitus type: due to underlying condition Qualified Code(s): E08.10 - Diabetes mellitus due to underlying condition with ketoacidosis without coma Code(s): E11.10 - Type 2 diabetes mellitus with ketoacidosis without coma Status: Acute Assessment and Plan: Patient presented with DKA on admission, was insulin infusion along with IV fluids, patient was transition to long-acting insulin subQ insulin. -fasting blood glucose was 51. Accu-Chek was in the 172-143 range -continue diabetic diet. [place] oral intake. -hemoglobin A1c 7.6 this admission (5) Acute kidney injury: Code(s): N17.9 - Acute kidney failure, unspecified Status: Acute Assessment and Plan: Recover known oliguric acute kidney injury; it was likely prerenal from intravascular volume depletion. Creatinine was 1.5 on admission creatinine has now normalized monitor urine output electrolytes creatinine CT abdomen pelvis did not show any hydronephrosis or stones she had recent renal ultrasound which showed medical renal disease (6) Anasarca: Code(s): R60.1 - Generalized edema Status: Acute Assessment and Plan: bilateral pleural effusion, diffuse lower extremity edema and anasarca likely secondary to cirrhosis or right heart failure or a combination of both. patient does have mention of pulmonary hypertension on her records from outside hospital but I do not have enough details about that albumin is 2.6 and elevated liver enzymes could be secondary to sepsis and shock. Her INR is 2.9 despite not being on any anticoagulation. INR has improved to 1.6 today and will plan for thoracentesis. TSH is normal she had lower extremity Dopplers checked on last admission and were negative Right upper quadrant ultrasound 06/08/2021 showed intrahepatic and extrahepatic bile duct dilatation status post cholecystectomy (7) Atrial fibrillation with rapid ventricular response: Code(s): I48.91 - Unspecified atrial fibrillation Status: Acute Assessment and Plan: Patient off Cardizem infusion -is on p.o. Cardizem and will switch p.o. metoprolol (8) Elevated liver enzymes: Code(s): R74.8 - Abno
[2021-06-13] MEDS: INSULIN GLARGINE (*BKC) 100 UNITS/ML 30 UNITS SUB-Q (08:22)
[2021-06-13 08:24] VITALS: PULSE 70
[2021-06-13] MEDS: METOPROLOL TARTRATE 50 MG TAB PO ×2 (08:24→23:51)
[2021-06-13] MEDS: PANTOPRAZOLE SODIUM IV 40 MG VIAL IV PUSH (08:26)
[2021-06-13 08:31] LABS: Glucose Point of Care 142 mg/dl (65-105)
[2021-06-13 08:34] LABS: Glucose Point of Care 151 mg/dl (65-105)
--- NOTE | 2021-06-13 09:07 | PCPTNOTE ---
Attempted to see pt however pt remains on bedrest order with no updated orders per nurse. No WB status noted in chart and nurse unaware of any WB status. Attempted to reach MD, but unable. Will hold therapy until updated orders placed in the chart.
--- NOTE | 2021-06-13 09:11 | PCPTNOTE ---
Spoke with Dr. Luz, states bedrest order was removed yesterday.
--- NOTE | 2021-06-13 10:32 | WPDCDIQUERY2 ---
CDI Query Clarification Request -Severe sepsis with septic shock documented in H&P -Sepsis currently on problem list and obvious source of the infection has not been identified at this time -Infectious disease assessment: no infections identified and systemic inflammatory response syndrome documented. -IV antibiotics discontinued 06/11 Please clarify if sepsis/severe sepsis and septic shock were ruled in or ruled out. <Carol Arceo RN - Last Filed: 06/13/21 10:40> Clarified Diagnosis (1) Sepsis: Code(s): A41.9 - Sepsis, unspecified organism <Carol Arceo RN - Last Filed: 06/13/21 10:40> Status: Acute <Carol Arceo RN - Last Filed: 06/13/21 10:40> Assessment and Plan: Sepsis was ruled out. Leukocytosis likely reactive. Antibiotics were stopped. Cultures from blood and pleural fluid unrevealing to date. <Yin Luz MD - Last Filed: 06/14/21 20:13>
[2021-06-13 11:26] LABS: Albumin Pleural Fluid 0.6 g/dL
[2021-06-13 11:58] LABS: Glucose Point of Care 243 mg/dl (65-105)
[2021-06-13] MEDS: INSULIN ASPART (*BKC) 100 UNITS/ML SUB-Q ×2 (12:18→18:05)
[2021-06-13 13:12] LABS: Amylase, Pleural Fluid <10 U/L
[2021-06-13 14:05] VITALS: BP 135/65; PULSE 77; RESP 18; TEMP 36.7; O2SAT 99
[2021-06-13 16:43] LABS: EDCOVIDSCREEN Positive (Negative)
--- NOTE | 2021-06-13 17:20 | PM.DS ---
DS: Admitting Diagnosis Discharge Date 06/16/2021. Admitting Diagnosis (1) DKA, type 1. Diabetes mellitus with ketoacidosis without coma (2) Sepsis with acute liver failure and septic shock: (3) Leukocytosis (leucocytosis): (4) Pleural effusion: (5) Acute kidney injury: (6) Supratherapeutic INR: (7) Anasarca: (8) Acute on chronic anemia: (9) Paroxysmal atrial fibrillation with RVR. (10) Peripheral arterial disease: DS: Discharge Diagnosis Discharge Diagnosis (1) DKA, type 1: Qualifiers: Diabetes mellitus complication detail: with coma Qualified Code(s): E10.11 - Type 1 diabetes mellitus with ketoacidosis with coma Code(s): E10.10 - Type 1 diabetes mellitus with ketoacidosis without coma Status: Acute Assessment and Plan: Patient presented with DKA on admission, was on insulin infusion along with IV fluids, patient was transition to long-acting insulin subQ insulin. -fasting blood glucose was 64. Insulin was held Accu-Chek was in the 64-181 range -continue diabetic diet. [place] oral intake. -hemoglobin A1c 7.6 this admission (2) Pleural effusion: Code(s): J90 - Pleural effusion, not elsewhere classified Status: Acute Assessment and Plan: patient has large pleural effusions but currently is not symptomatic as she is on room air Thoracentesis was performed with 650 cc of pleural fluid drained. Follow-up pending cultures. No growth to date. Likely transudative pleural effusion in the setting of CHF. (3) CHF (congestive heart failure): Code(s): I50.9 - Heart failure, unspecified Status: Acute Assessment and Plan: At presentation, patient has diffuse anasarca and specially significantly lower extremity edema, concerning for right heart failure Patient's proBNP is 12,100 on 06/09/2021 -her most recent echocardiogram showed a normal left ventricular function 03/22/2021. -currently patient is fairly asymptomatic at rest. Start Lasix for moderate lower extremity edema. Monitor BMP. (4) Acute kidney injury: Code(s): N17.9 - Acute kidney failure, unspecified Status: Acute Assessment and Plan: Resolving YAMILE. Stable creatinine at 0.7 on 06/14. (5) Anasarca: Code(s): R60.1 - Generalized edema Status: Acute Assessment and Plan: Improving. Persistent lower extremity edema started on Lasix. Fluid effusion was drained. (6) Paroxysmal atrial fibrillation with RVR: Code(s): I48.0 - Paroxysmal atrial fibrillation Status: Acute Assessment and Plan: Currently rate controlled. Continue metoprolol and Cardizem. (7) Anemia: Code(s): D64.9 - Anemia, unspecified Status: Acute Assessment and Plan: Moderate normocytic and hypochromic anemia with stable hemoglobin at 9.5. Iron stores are on the low side. The patient was given a single dose of Venofer 300 mg. DS: Summary Hospital Course Reason for hospitalization: Dyspnea Hospital Course: Please refer to admission h and P. Briefly, this is a 76-year-old female with past medical history of CVA March 2021, paroxysmal atrial fibrillation, and type 1 diabetes mellitus who presented to the ER via EMS from [facility] after having decreased oxygen saturations. The patient was admitted in March 2021 and was discharged to rehab. She had just returned home in mid May when she had a fall that resulted in left hip fracture. The patient was admitted to [facility] where she had intramedullary pinning on 05/31/2021. She was hospitalized from 05/31 3 has not 21 through 06/06/2021. At that time the patient was admitted she was noted to be encephalopathic as well. Only a portion of the medical records were available for my review. The patient was discharged to [facility] on 05/07/2021. During her hospital stay at [place] her insulin pump had been held and she was receiving Lantus subQ. At the time o
--- NOTE | 2021-06-13 17:25 | PCCCNOTE ---
Phone call received from [address] [place] [address] set up and charger stating that patient was ready for dc back to [facility] but Rapid Covid is +. Phone call to [facility] Will not be accept with rapid covid and will need PCR done to confirm. Called back to [address] [place] [address] spoke with Elaina advised that [facility] cannot accept patient with rapid + and PCR will be needed. Barbara verbalizes understanding and will notify [facility].
[2021-06-13 17:52] LABS: Glucose Point of Care 263 mg/dl (65-105)
[2021-06-13] MEDS: NEOMYCIN/POLYMYXIN/BACITRACIN OINTMENT PACKET 1 PACKET (18:05)
[2021-06-13 22:00] VITALS: BP 142/68; PULSE 75; RESP 16; TEMP 36.6; O2SAT 96
[2021-06-13 23:51] VITALS: PULSE 75
[2021-06-13] MEDS: PANTOPRAZOLE 40 MG TABLET PO (23:52)
[2021-06-14] VITALS (8 sets, daily range): BP systolic 116–177; BP diastolic 50–89; PULSE 67–92; RESP 16–18; TEMP 36.4–37.2; O2SAT 96–100
[2021-06-14 03:30] LABS: Glucose Point of Care 222 mg/dl (65-105)
[2021-06-14] MEDS: LEVOTHYROXINE SODIUM 50 MCG TABLET PO (05:56)
[2021-06-14] MEDS: dilTIAZem HCL 60 MG TABLET PO ×3 (05:56→17:11)
[2021-06-14 07:59] LABS: Glucose Point of Care 141 mg/dl (65-105)
[2021-06-14] MEDS: PANTOPRAZOLE 40 MG TABLET PO ×2 (09:00→20:16)
[2021-06-14] MEDS: INSULIN GLARGINE (*BKC) 100 UNITS/ML 30 UNITS SUB-Q (09:00)
[2021-06-14] MEDS: METOPROLOL TARTRATE 50 MG TAB PO ×2 (09:00→20:16)
[2021-06-14 11:06] LABS: Basophils Absolute Auto 0.1 K/mm3 (0.0-0.1); Basophils Percent Auto 0.4 % (0.2-1.2); Eosinophils Absolute Auto 0.2 K/mm3 (0-0.3); Eosinophils Percent Auto 1.1 % (0-4.4); Hematocrit 33.9 % (37.0-47.0); Hemoglobin 10.1 g/dL (12.0-15.0); Immature Granulocyte Absolute 0.22 K/mm3 (0.00-0.031); Immature Granulocyte Percent A 1.3 % (0-0.5); Lymphocytes Absolute Auto 0.83 K/mm3 (0.9-3.2); Mean Corpuscular HGB Conc 29.8 g/dl (32-36); Mean Corpuscular Hemoglobin 25.5 pg (26-34); Mean Corpuscular Volume 85.6 fl (80-100); Mean Platelet Volume 10.5 fl (7.4-10.4); Monocytes Absolute Auto 1.1 K/mm3 (0.1-0.6); Monocytes Percent Auto 6.4 % (2.6-8.5); Neutrophils Absolute Auto 14.4 K/mm3 (1.3-6.7); Neutrophils Percent Auto 85.8 % (45.5-73.1); Platelet Count Result 266 k/mm3 (150-375); Red Blood Count 3.96 M/mm3 (4.2-5.4); Red Cell Distribution Width 22.2 % (11.5-14.5); White Blood Count 16.8 K/mm3 (4.5-10.0)
[2021-06-14 11:14] LABS: Estimated CRCL calculation 61 ml/min; Estimated Glomerular Filt Rate > 60
[2021-06-14 11:58] LABS: Platelet Estimate Adequate (Adequate)
[2021-06-14 11:59] LABS: Anisocytosis 1+ (NORMAL); Ovalocytes 1+ (NORMAL); Poikilocytosis 1+ (NORMAL)
[2021-06-14 12:18] LABS: Glucose Point of Care 188 mg/dl (65-105)
--- NOTE | 2021-06-14 13:04 | PM.IMPN ---
Progress Note: A&P Assessment and Plan (1) Sepsis: Code(s): A41.9 - Sepsis, unspecified organism Status: Acute Assessment and Plan: patient presented with findings which meet the criteria for sepsis; and obvious source of the infection has not been identified at this time. CT abdomen pelvis does suggest proctitis but the findings are not impressive. Mild diffuse tenderness to palpation throughout abdomen but abdomen appears benign on exam her UA is negative, CT of the abdomen pelvis show clear bases of lungs except some atelectasis and fusion. Blood cultures negative x2 patient was placed on empiric antibiotics, Zosyn and vancomycin. All antibiotics were stopped on 06/11/2021 patient received cautious amount of IV fluids due to diffuse anasarca; IV fluids are stopped. All cultures have remained unrevealing. Patient appears to be stable for discharge (2) CHF (congestive heart failure): Code(s): I50.9 - Heart failure, unspecified Status: Acute Assessment and Plan: At presentation, patient has diffuse anasarca and specially significantly lower extremity edema, concerning for right heart failure Patient's proBNP is 12,100 on 06/09/2021 -her most recent echocardiogram showed a normal left ventricular function 03/22/2021. - (3) Pleural effusion: Code(s): J90 - Pleural effusion, not elsewhere classified Status: Acute Assessment and Plan: patient has large effusions but currently is not symptomatic as she is on room air Thoracentesis was performed with 650 cc of pleural fluid drained. Follow-up pending cultures.. (4) DKA (diabetic ketoacidosis): Qualifiers: Diabetes mellitus complication detail: without coma Diabetes mellitus type: due to underlying condition Qualified Code(s): E08.10 - Diabetes mellitus due to underlying condition with ketoacidosis without coma Code(s): E11.10 - Type 2 diabetes mellitus with ketoacidosis without coma Status: Acute Assessment and Plan: Patient presented with DKA on admission, was insulin infusion along with IV fluids, patient was transition to long-acting insulin subQ insulin. -fasting blood glucose was 51. Accu-Chek was in the 172-143 range -continue diabetic diet. [place] oral intake. -hemoglobin A1c 7.6 this admission (5) Acute kidney injury: Code(s): N17.9 - Acute kidney failure, unspecified Status: Acute Assessment and Plan: Recover known oliguric acute kidney injury; it was likely prerenal from intravascular volume depletion. Creatinine was 1.5 on admission creatinine has now normalized monitor urine output electrolytes creatinine CT abdomen pelvis did not show any hydronephrosis or stones she had recent renal ultrasound which showed medical renal disease (6) Anasarca: Code(s): R60.1 - Generalized edema Status: Acute Assessment and Plan: bilateral pleural effusion, diffuse lower extremity edema and anasarca likely secondary to cirrhosis or right heart failure or a combination of both. patient does have mention of pulmonary hypertension on her records from outside hospital but I do not have enough details about that albumin is 2.6 and elevated liver enzymes could be secondary to sepsis and shock. Her INR is 2.9 despite not being on any anticoagulation. INR has improved to 1.6 today and will plan for thoracentesis. TSH is normal she had lower extremity Dopplers checked on last admission and were negative Right upper quadrant ultrasound 06/08/2021 showed intrahepatic and extrahepatic bile duct dilatation status post cholecystectomy (7) Atrial fibrillation with rapid ventricular response: Code(s): I48.91 - Unspecified atrial fibrillation Status: Acute Assessment and Plan: Patient off Cardizem infusion -is on p.o. Cardizem and will switch p.o. metoprolol (8) Elevated liver enzymes: Code(s): R74.8 - Abnormal levels of other serum enzymes
[2021-06-14 17:00] LABS: Glucose Point of Care 169 mg/dl (65-105)
[2021-06-14] MEDS: traMADol HCL (*CRX) 50 MG TABLET PO (20:15)
[2021-06-15] VITALS (8 sets, daily range): BP systolic 116–161; BP diastolic 58–81; PULSE 61–103; RESP 16–18; TEMP 36–37.3; O2SAT 93–98
[2021-06-15] MEDS: dilTIAZem HCL 60 MG TABLET PO ×4 (00:35→18:05)
[2021-06-15 00:58] LABS: Glucose Point of Care 236 mg/dl (65-105)
[2021-06-15] MEDS: LEVOTHYROXINE SODIUM 50 MCG TABLET PO (05:39)
[2021-06-15] MEDS: traMADol HCL (*CRX) 50 MG TABLET PO ×2 (05:40→12:03)
[2021-06-15 06:48] LABS: Red Blood Cell Folate 958 ng/mL RBC (>280)
[2021-06-15 07:12] LABS: Basophils Percent Auto 0.3 % (0.2-1.2); Eosinophils Absolute Auto 0.3 K/mm3 (0-0.3); Eosinophils Percent Auto 2.3 % (0-4.4); Hematocrit 31.4 % (37.0-47.0); Hemoglobin 9.5 g/dL (12.0-15.0); Immature Granulocyte Absolute 0.16 K/mm3 (0.00-0.031); Immature Granulocyte Percent A 1.4 % (0-0.5); Lymphocytes Absolute Auto 0.89 K/mm3 (0.9-3.2); Lymphocytes Percent Auto 7.6 % (18.3-44.2); Mean Corpuscular HGB Conc 30.3 g/dl (32-36); Mean Corpuscular Hemoglobin 25.3 pg (26-34); Mean Corpuscular Volume 83.5 fl (80-100); Mean Platelet Volume 9.6 fl (7.4-10.4); Monocytes Absolute Auto 1.1 K/mm3 (0.1-0.6); Monocytes Percent Auto 9.7 % (2.6-8.5); Neutrophils Absolute Auto 9.2 K/mm3 (1.3-6.7); Neutrophils Percent Auto 78.7 % (45.5-73.1); Platelet Count Result 260 k/mm3 (150-375); Red Blood Count 3.76 M/mm3 (4.2-5.4); Red Cell Distribution Width 22.5 % (11.5-14.5); White Blood Count 11.7 K/mm3 (4.5-10.0)
[2021-06-15 07:56] LABS: Glucose Point of Care 64 mg/dl (65-105)
[2021-06-15] MEDS: PANTOPRAZOLE 40 MG TABLET PO ×2 (08:18→21:43)
[2021-06-15] MEDS: METOPROLOL TARTRATE 50 MG TAB PO ×2 (08:18→21:41)
[2021-06-15 09:49] LABS: Glucose Point of Care 178 mg/dl (65-105)
--- NOTE | 2021-06-15 12:00 | PM.IMPN ---
Progress Note: A&P Assessment and Plan (1) DKA, type 1: Qualifiers: Diabetes mellitus complication detail: with coma Qualified Code(s): E10.11 - Type 1 diabetes mellitus with ketoacidosis with coma Code(s): E10.10 - Type 1 diabetes mellitus with ketoacidosis without coma Status: Acute Assessment and Plan: Patient presented with DKA on admission, was insulin infusion along with IV fluids, patient was transition to long-acting insulin subQ insulin. -fasting blood glucose was 64. Insulin was held Accu-Chek was in the 64-199 range -continue diabetic diet. [place] oral intake. -hemoglobin A1c 7.6 this admission (2) Pleural effusion: Code(s): J90 - Pleural effusion, not elsewhere classified Status: Acute Assessment and Plan: patient has large pleural effusions but currently is not symptomatic as she is on room air Thoracentesis was performed with 650 cc of pleural fluid drained. Follow-up pending cultures.. (3) CHF (congestive heart failure): Code(s): I50.9 - Heart failure, unspecified Status: Acute Assessment and Plan: At presentation, patient has diffuse anasarca and specially significantly lower extremity edema, concerning for right heart failure Patient's proBNP is 12,100 on 06/09/2021 -her most recent echocardiogram showed a normal left ventricular function 03/22/2021. -currently patient is fairly asymptomatic at rest. Start Lasix for moderate lower extremity edema. Monitor BMP. (4) Acute kidney injury: Code(s): N17.9 - Acute kidney failure, unspecified Status: Acute Assessment and Plan: Resolving YAMILE. Stable creatinine at 0.7 on 06/14. (5) Anasarca: Code(s): R60.1 - Generalized edema Status: Acute Assessment and Plan: Improving. Persistent lower extremity edema started on Lasix. Fluid effusion was drained. (6) Paroxysmal atrial fibrillation with RVR: Code(s): I48.0 - Paroxysmal atrial fibrillation Status: Acute Assessment and Plan: Currently rate controlled. Continue metoprolol and Cardizem. (7) Anemia: Code(s): D64.9 - Anemia, unspecified Status: Acute Assessment and Plan: Moderate normocytic and hypochromic anemia with stable hemoglobin at 9.5. Iron stores are on the low side. Will give the patient Venofer 300 mg x 3 doses. Subjective Date/time seen: 06/15/21 11:35 S: Patient examined at the bedside. She is breathing comfortably on room air. No active complaints. Currently awaiting placement pending COVID testing. Review of Systems Review of Systems: All systems reviewed & are unremarkable except as noted in HPI and below Constitutional: Constitutional: Reports as per HPI, Reports fatigue, Reports lethargy and Reports weakness Eyes: Eyes: Reports as per HPI and Denies blurry vision ENT: Reports as per HPI, Denies dysphagia and Denies epistaxis Cardiovascular: Cardiovascular: Reports as per HPI, Denies chest pain, Reports leg edema and Denies dyspnea Respiratory: Respiratory: Reports as per HPI and Denies dyspnea Gastrointestinal: Gastrointestinal: Reports as per HPI, Denies abdominal pain, Denies dysphagia, Denies nausea and Denies vomiting Genitourinary: Genitourinary: Reports as per HPI Musculoskeletal: Musculoskeletal: Reports as per HPI Integumentary/Breasts: Skin/Breast: Reports as per HPI Neurologic: Reports as per HPI, Denies confusion and Reports weakness Psychiatric: Psychiatric: Reports as per HPI and Denies confusion Endocrine: Endocrine: Reports fatigue Exam Const: General: comfortable and no acute distress; No confusion Orientation/consciousness: No confusion HENMT: Mouth: Yes Abnormal oral and palatal mucosa present Eyes: General: appearance normal, both eyes and all related structures Pupils: Equal, round and reactive pupils present EOM: EOMs intact bilaterally Neck: Neck: no JVD Carotids: no bruits Lymphatic: lymphaden
[2021-06-15 12:35] LABS: Glucose Point of Care 199 mg/dl (65-105)
[2021-06-15] MEDS: ACETAMINOPHEN 500 MG TABLET 1000 MG PO (15:03)
[2021-06-15] MEDS: FUROSEMIDE 40 MG TABLET PO (15:03)
[2021-06-15 16:44] LABS: Glucose Point of Care 194 mg/dl (65-105)
[2021-06-16] VITALS (8 sets, daily range): BP systolic 138–154; BP diastolic 65–77; PULSE 78–118; RESP 12–18; TEMP 36.7–37.3; O2SAT 95–98
[2021-06-16] MEDS: dilTIAZem HCL 60 MG TABLET PO ×4 (01:05→18:10)
[2021-06-16] MEDS: LEVOTHYROXINE SODIUM 50 MCG TABLET PO (05:20)
[2021-06-16 07:53] LABS: Glucose Point of Care 192 mg/dl (65-105)
[2021-06-16] MEDS: PANTOPRAZOLE 40 MG TABLET PO ×2 (08:58→19:58)
[2021-06-16] MEDS: METOPROLOL TARTRATE 50 MG TAB PO ×2 (08:58→19:58)
[2021-06-16] MEDS: FUROSEMIDE 40 MG TABLET PO (08:58)
[2021-06-16] MEDS: INSULIN GLARGINE (*BKC) 100 UNITS/ML 30 UNITS SUB-Q (09:03)
[2021-06-16 10:01] LABS: Estimated CRCL calculation 84 ml/min; Estimated Glomerular Filt Rate > 60
[2021-06-16 10:13] LABS: Basophils Percent Auto 0.4 % (0.2-1.2); Eosinophils Absolute Auto 0.1 K/mm3 (0-0.3); Eosinophils Percent Auto 1.5 % (0-4.4); Hematocrit 31.1 % (37.0-47.0); Hemoglobin 9.3 g/dL (12.0-15.0); Immature Granulocyte Absolute 0.05 K/mm3 (0.00-0.031); Immature Granulocyte Percent A 0.6 % (0-0.5); Lymphocytes Absolute Auto 0.78 K/mm3 (0.9-3.2); Lymphocytes Percent Auto 9.3 % (18.3-44.2); Mean Corpuscular HGB Conc 29.9 g/dl (32-36); Mean Corpuscular Hemoglobin 25.5 pg (26-34); Mean Corpuscular Volume 85.2 fl (80-100); Mean Platelet Volume 10.2 fl (7.4-10.4); Monocytes Absolute Auto 0.8 K/mm3 (0.1-0.6); Monocytes Percent Auto 9.2 % (2.6-8.5); Neutrophils Absolute Auto 6.6 K/mm3 (1.3-6.7); Platelet Count Result 264 k/mm3 (150-375); Red Blood Count 3.65 M/mm3 (4.2-5.4); Red Cell Distribution Width 22.3 % (11.5-14.5); White Blood Count 8.4 K/mm3 (4.5-10.0)
--- NOTE | 2021-06-16 11:38 | PCNFU ---
Nutrition Follow-Up Complete: Inadequate Oral Intake as related to cognition as evidenced by poor po intake. Goal: Adequate Intake of at least 75% of meals/supplements Pt. is progressing towards goal. No new goal at this time. Pt current nutrition is heart healthy and diabetic consistent carbohydrate diet. Last recorded weight is 77.6 kg. Recommend re-weighing pt. prior to discharge. Bowel Motility: + BM 06/15/2021 Labs Reviewed: Hgb 9.3, Hct 31.1, Cr 0.50 Meds Noted: Lasix, Novolog, Lantus, Synthroid, Lopressor, Protonix, Ultram Skin: Stage II coccyx pressure ulcer and sacrum deep tissue pressure ulcer Additional Notes: Pt. is receiving Braxton BID providing 90 calories and 2.5 grams of protein to aid in wound healing. She is also receiving Glucerna shake BID providing an additional 220 calories and 10 grams of protein. Pt. is eating well, consuming on average 85% of meals. RD will monitor every 5 days.
[2021-06-16 11:45] LABS: Glucose Point of Care 281 mg/dl (65-105)
[2021-06-16] MEDS: INSULIN ASPART (*BKC) 100 UNITS/ML SUB-Q (12:51)
--- NOTE | 2021-06-16 14:14 | PCNSR ---
On 06/16/21, the student, Velia Douglas, provided care and completed [facility] documentation on this patient. I have reviewed the student's documentation and agree with the findings.
[2021-06-16 14:20] LABS: SARS-CoV-2 RNA PCR Negative
--- NOTE | 2021-06-16 15:21 | PM.IMPN ---
Progress Note: A&P Assessment and Plan (1) DKA, type 1: Qualifiers: Diabetes mellitus complication detail: with coma Qualified Code(s): E10.11 - Type 1 diabetes mellitus with ketoacidosis with coma Code(s): E10.10 - Type 1 diabetes mellitus with ketoacidosis without coma Status: Acute Assessment and Plan: Patient presented with DKA on admission, was on insulin infusion along with IV fluids, patient was transition to long-acting insulin subQ insulin. -fasting blood glucose was 64. Insulin was held Accu-Chek was in the 64-181 range -continue diabetic diet. [place] oral intake. -hemoglobin A1c 7.6 this admission (2) Pleural effusion: Code(s): J90 - Pleural effusion, not elsewhere classified Status: Acute Assessment and Plan: patient has large pleural effusions but currently is not symptomatic as she is on room air Thoracentesis was performed with 650 cc of pleural fluid drained. Follow-up pending cultures. No growth to date. Likely transudative pleural effusion in the setting of CHF. (3) CHF (congestive heart failure): Code(s): I50.9 - Heart failure, unspecified Status: Acute Assessment and Plan: At presentation, patient has diffuse anasarca and specially significantly lower extremity edema, concerning for right heart failure Patient's proBNP is 12,100 on 06/09/2021 -her most recent echocardiogram showed a normal left ventricular function 03/22/2021. -currently patient is fairly asymptomatic at rest. Start Lasix for moderate lower extremity edema. Monitor BMP. (4) Acute kidney injury: Code(s): N17.9 - Acute kidney failure, unspecified Status: Acute Assessment and Plan: Resolving YAMILE. Stable creatinine at 0.7 on 06/14. (5) Anasarca: Code(s): R60.1 - Generalized edema Status: Acute Assessment and Plan: Improving. Persistent lower extremity edema started on Lasix. Fluid effusion was drained. (6) Paroxysmal atrial fibrillation with RVR: Code(s): I48.0 - Paroxysmal atrial fibrillation Status: Acute Assessment and Plan: Currently rate controlled. Continue metoprolol and Cardizem. (7) Anemia: Code(s): D64.9 - Anemia, unspecified Status: Acute Assessment and Plan: Moderate normocytic and hypochromic anemia with stable hemoglobin at 9.5. Iron stores are on the low side. The patient was given a single dose of Venofer 300 mg. Subjective Date/time seen: 06/16/21 11:00 S: Patient was examined at the bedside. She is tolerating PT. She reported left foot pain. Review of Systems Review of Systems: All systems reviewed & are unremarkable except as noted in HPI and below Constitutional: Constitutional: Reports as per HPI, Reports fatigue, Reports lethargy and Reports weakness Eyes: Eyes: Reports as per HPI and Denies blurry vision ENT: Reports as per HPI, Denies dysphagia and Denies epistaxis Cardiovascular: Cardiovascular: Reports as per HPI, Denies chest pain, Reports leg edema and Denies dyspnea Respiratory: Respiratory: Reports as per HPI and Denies dyspnea Gastrointestinal: Gastrointestinal: Reports as per HPI, Denies abdominal pain, Denies dysphagia, Denies nausea and Denies vomiting Genitourinary: Genitourinary: Reports as per HPI Musculoskeletal: Musculoskeletal: Reports as per HPI Integumentary/Breasts: Skin/Breast: Reports as per HPI Neurologic: Reports as per HPI, Denies confusion and Reports weakness Psychiatric: Psychiatric: Reports as per HPI and Denies confusion Endocrine: Endocrine: Reports fatigue Exam Const: General: comfortable and no acute distress; No confusion Orientation/consciousness: No confusion HENMT: Mouth: Yes Abnormal oral and palatal mucosa present Eyes: General: appearance normal, both eyes and all related structures Pupils: Equal, round and reactive pupils present EOM: EOMs intact bilaterally Neck: Neck: no JVD Carotids: no br
[2021-06-16 16:24] LABS: Glucose Point of Care 150 mg/dl (65-105)
[2021-06-16] MEDS: ACETAMINOPHEN 500 MG TABLET 1000 MG PO (18:55)
== END 2021-06-16 20:00 | DRG 637 ==
LOC: ANHED 06-08 02:30 → ANHICU 06-08 04:57 → ANH2MED 06-13 15:34 → ANH3MEDSUR 06-17 12:56 → ANHICU 06-17 12:56
PROVIDERS: Internal Medicine; Admitting Provider Internal Medicine; Emergency Provider Emergency Medicine; Visit Provider Internal Medicine
DX: E10.10 Type 1 diabetes mellitus with ketoacidosis without coma (principal); K72.01 Acute and subacute hepatic failure with coma; J90 Pleural effusion, not elsewhere classified; N17.9 Acute kidney failure, unspecified; I48.20 Chronic atrial fibrillation, unspecified; G93.40 Encephalopathy, unspecified; D72.829 Elevated white blood cell count, unspecified; Z20.822 Contact with and (suspected) exposure to COVID-19; R79.1 Abnormal coagulation profile; D64.9 Anemia, unspecified; I50.9 Heart failure, unspecified; I48.0 Paroxysmal atrial fibrillation; E78.5 Hyperlipidemia, unspecified; F32.A Depression, unspecified; H35.30 Unspecified macular degeneration; K74.69 Other cirrhosis of liver; M06.9 Rheumatoid arthritis, unspecified; I73.9 Peripheral vascular disease, unspecified; I99.8 Other disorder of circulatory system; Z90.49 Acquired absence of other specified parts of digestive tract; Z98.42 Cataract extraction status, left eye; Z98.41 Cataract extraction status, right eye; Z90.710 Acquired absence of both cervix and uterus; Z87.891 Personal history of nicotine dependence; Z86.73 Personal history of transient ischemic attack (TIA), and cerebral infarction without residual deficits; Z79.82 Long term (current) use of aspirin
CPT/HCPCS: 32555; 36415; 36430; 36556; 36600; 70450; 71045; 71250; 74177; 76705; 80048; 80053; 80074; 80076; 80202; 80307; 81001; 82042; 82140; 82150; 82565; 82607; 82728; 82747; 82805; 82945; 82948; 83036; 83540; 83550; 83605; 83615; 83735; 83880; 83986; 84100; 84157; 84311; 84439; 84443; 84466; 84480; 84484; 85025; 85027; 85610; 85730; 86850; 86900; 86901; 86920; 87015; 87040; 87070; 87075; 87102; 87116; 87205; 87206; 87426; 88104; 88108; 88184; 88305; 92610; 93005; 93306; 93923; 96361; 96365; 96366; 96367; 96368; 96375; 96376; 97110; 97162; 97530; 99285; A9270; C1751; C9113; C9803; G0378; J1756; J1815; J1940; J2543; J2997; J3370; J3480; J7030; J7040; J7050; P9016; P9047; Q9967; U0003; U0005

== ENCOUNTER 2021-07-16 15:11 | Inpatient (IN) | payer MEDICARE, OTHER, SELFPAY ==
[2021-07-16] VITALS (54 sets, daily range): BP systolic 79–135; BP diastolic 51–104; PULSE 72–101; RESP 17–37; TEMP 36.2; O2SAT 88–98
--- NOTE | ~2021-07-16 | XR_ITS ---
EXAMINATION: XR chest 1V portable EXAM DATE: 07/16/2021 16:21 INDICATION: chest pain, SOB, Hx Of Dementia, Hx Htn, Hx Afib Rvr. TECHNIQUE: Portable AP frontal chest x-ray was obtained. Comparison is made to prior examination from 06/07/2021. FINDINGS: There is cardiomegaly and pulmonary vascular congestion. Dense mitral annular calcification s. Moderate left pleural effusion. Small right pleural effusion. Adjacent multisegmental atelectasis. Probable superimposed bilateral edema or pneumonia. There is aortic arteriosclerosis. There is no pn eumothorax suspected. Bilateral shoulder replacements. Thoracolumbar kyphoplasties. Upper abdominal s urgical clips. Prior exam had small left pleural effusion and cardiomegaly, other findings have developed. IMPRESSION: 1. Findings consistent with CHF exacerbation. 2. Moderate left, small right pleural effusion. 3. Multisegmental left lower lobe atelectasis. 4. Edema and/or pneumonia likely. Reviewed, dictated and finalized at location A. OSCIENCE DIRECTOR NA
--- NOTE | ~2021-07-16 | CT_ITS ---
EXAMINATION: CTA chest PE protocol EXAM DATE: 07/17/2021 13:09 INDICATION: Elevated D-dimer, hypoxia. TECHNIQUE: Spiral CTA of the chest (pulmonary arteries) was performed with 100 cc Omnipaque 350 intr avenous contrast injection. Images were acquired during the pulmonary arterial phase. Coronal maxi mum intensity projection 3D-reconstructions were created by the technologist on dedicated workstation . Axial, coronal and sagittal reformatted images were reviewed. The dose-length product (DLP) for t his examination was 677.68 mGy-cm. The exposure was tailored according to patient size (auto mA exp osure control), and iterative reconstruction (ASIR) was used as additional dose reduction technique. Comparison is made to prior examination from 06/11/2021. Correlation was made with chest x-ray earlier same date. FINDINGS: The main, central pulmonary arteries are dilated which can indicate elevated pulmonary nunu rial pressure, pulmonary arterial hypertension. There is lingular segmental pulmonary embolism identi fied, no other filling defects within the pulmonary arteries. There is cardiomegaly. Debris occluding the left mainstem bronchus and segmental bronchi, with completely collapsed left lung which could be both postobstructive and also from the moderate to large left pleural effusion. There is moderate ri ght pleural effusion with adjacent segmental right lower lobe compressive atelectasis. Small amount o f debris in the bronchus intermedius. Bilateral shoulder replacements. No definite mediastinal lympha denopathy. IMPRESSION: 1. Positive for segmental lingular pulmonary embolism. 2. Cardiomegaly. Dilated pulmonary arteries. 3. Completely collapsed left lung likely from endobronchial debris and also the moderate to large pl eural effusion. 4. Moderate right pleural effusion with adjacent right lower lobe segmental compressive atelectasis. I discussed this case with hospitalist Dr. Merrill at 07/17/2021 13:28 SURGERY ATTENDANT. Reviewed, dictated and finalized at location A. ERY ATTENDANT IMPRESSION: 1. Positive for segmental lingular pulmonary embolism. 2. Cardiomegaly. Dilated pulmonary arteries. 3. Completely collapsed left lung likely from endobronchial debris and also th e moderate to large pleural effusion. 4. Moderate right pleural effusion with adjacent right lower lobe segmental co mpressive atelectasis. I discussed this case with hospitalist Dr. Merrill at 07/17/2021 13:28 SURGERY ATTENDANT.
--- NOTE | ~2021-07-16 | XR_ITS ---
EXAMINATION: XR Abdomen PICC EXAM DATE: 07/17/2021 12:10 INDICATION: PICC placement. Right mid thigh approach. TECHNIQUE: Frontal projection(s) of the abdomen for interpretation. There is no prior study for john ann. FINDINGS: There is a right-sided venous line projecting over the right side of the vertebral body (p atient is rotated to the left), expected location of the IVC. Tip is at the T12 level. Thoracolumbar vertebral plasties. There is a sacral neurostimulator. Moderate amount of colonic stool and gas. Dens e mitral annular calcifications. IMPRESSION: 1. Right mid thigh approach PICC line in expected position. 2. Moderate colonic stool and gas. Reviewed, dictated and finalized at location A. GER ASSURANCE
--- NOTE | 2021-07-16 16:05 | ECG_ITS ---
Measurements Intervals [place] Rate: 89 P: -7 CT: 366 QRS: -60 QRSD: 186 T: -20 QT: 470 QTc: 572 Interpretive Statements ATRIAL FIBRILLATION RIGHT BUNDLE BRANCH BLOCK LEFT ANTERIOR FASCICULAR BLOCK BASELINE ARTIFACT- II, III, AVR, AVL, AVF, V4 ABNORMAL ECG Electronically Signed On 07-16-2021 16:13:43 [employer] by Devon Paiz D.O.
[2021-07-16 16:44] LABS: Basophils Percent Auto 0.3 % (0.2-1.2); Eosinophils Percent Auto 0.6 % (0-4.4); Hematocrit 34.3 % (37.0-47.0); Hemoglobin 10.7 g/dL (12.0-15.0); Immature Granulocyte Absolute 0.01 K/mm3 (0.00-0.031); Immature Granulocyte Percent A 0.3 % (0-0.5); Immature Platelet Fraction Pct 4.5 % (0.9-11.2); Lymphocytes Absolute Auto 0.61 K/mm3 (0.9-3.2); Lymphocytes Percent Auto 17.6 % (18.3-44.2); Mean Corpuscular HGB Conc 31.2 g/dl (32-36); Mean Corpuscular Hemoglobin 28.9 pg (26-34); Mean Corpuscular Volume 92.7 fl (80-100); Monocytes Percent Auto 1.2 % (2.6-8.5); Neutrophils Absolute Auto 2.8 K/mm3 (1.3-6.7); Platelet Count Result 64 k/mm3 (150-375); Red Cell Distribution Width 27.9 % (11.5-14.5); White Blood Count 3.5 K/mm3 (4.5-10.0)
[2021-07-16 16:50] LABS: INR 1.1; Prothrombin Time 14.2 Seconds (11.1-14.7)
[2021-07-16 16:51] LABS: Partial Thromboplastin Time 27.6 SECONDS (22.3-36.8)
[2021-07-16 16:57] LABS: Alanine Aminotransferase 22 U/L (4-35); Albumin Level 3.3 g/dL (3.5-5.1); Alkaline Phosphatase 160 U/L (38-126); Anion Gap 12 mmol/L (8-16); Aspartate Amino Transferase 36 U/L (14-36); Bilirubin,Total 0.8 mg/dL (0.2-1.3); Blood Urea Nitrogen 31 mg/dL (7-17); Calcium 8.6 mg/dL (8.4-10.2); Carbon Dioxide 18 mmol/L (22-30); Chloride 103 mmol/L (98-107); Estimated Glomerular Filt Rate 54; Glucose 370 mg/dL (65-110); Lipase 15 U/L (23-300); Potassium 3.9 mmol/L (3.4-5.0); Sodium 133 mmol/L (137-145)
[2021-07-16 16:58] LABS: Mean Platelet Volume 9.8 fl (7.4-10.4)
[2021-07-16 17:06] LABS: Alveolar/Arterial O2 Gradient 160.7 mmHg; Base Excess ABG -8.6 mEq/l (+/-2.0); Fractional Inspired Oxygen 36 %; HCO3 ABG 16.4 mEq/l (22.0-26.0); Oxygen Content ABG 12.7 %vol (16.0-22.0); Oxygen Saturation ABG 89.1 % (95.0-100.0); PO2 ABG 58.9 mmHg (80.0-100.0); PO2 FiO2 Ratio Arterial Blood 1.64 %; Total Hemoglobin 10.3 g/dL (12.0-18.0); pH ABG 7.328 (7.350-7.450)
[2021-07-16 17:08] LABS: Device NASAL CANNULA; Modified Allen's Test Pass; Oxyhemoglobin 87.7 % THb (90.0-100.0); Site Drawn LEFT RADIAL
[2021-07-16 17:08] LABS: Troponin I < 0.012 ng/mL (0.000-0.034)
[2021-07-16 18:07] LABS: Alveolar/Arterial O2 Gradient 165.6 mmHg; Base Excess ABG -10.2 mEq/l (+/-2.0); Device NASAL CANNULA; Fractional Inspired Oxygen 36 %; HCO3 ABG 14.3 mEq/l (22.0-26.0); Modified Allen's Test Pass; Oxygen Content ABG 12.7 %vol (16.0-22.0); Oxygen Saturation ABG 89.8 % (95.0-100.0); PCO2 ABG 27.3 mmHg (35.0-45.0); PO2 ABG 59.4 mmHg (80.0-100.0); PO2 FiO2 Ratio Arterial Blood 1.65 %; Site Drawn LEFT RADIAL; Total Hemoglobin 10.2 g/dL (12.0-18.0); pH ABG 7.338 (7.350-7.450)
--- NOTE | 2021-07-16 18:34 | ED.GENADULT ---
HPI - General Adult General Chief complaint: Chest Pain Stated complaint: shortness of breath Time Seen by Provider: 07/16/21 16:23 Source: EMS and RN notes reviewed Mode of arrival: EMS History of Present Illness HPI narrative: Patient is 76 years old white female brought to the emergency room by ambulance from longterm because of shortness of breath for the last few days. History of coughing for the last 2 weeks also confusion for the last few days. Patient normally awake, alert and oriented x4 lately she is oriented to her name only. Patient needs to be active with one family practice physician assistant, lately been sit to stand family practice physician assistant for 2days, patient is full code, no history of COVID, unknown vaccination. Patient normally not on oxygen. The longterm have residents with active COVID. Related Data Home Medications Medication Instructions Recorded Confirmed acetazolamide 250 mg DAILY 03/21/21 06/08/21 aspirin 81 mg PO DAILY 03/21/21 06/08/21 cholecalciferol (vitamin D3) 125 mcg PO DAILY 03/21/21 06/08/21 docusate sodium 100 mg PO PRN 03/21/21 06/08/21 duloxetine 60 mg PO DAILY 03/21/21 06/08/21 ergocalciferol (vitamin D2) 50,000 unit PO WEEKLY 03/21/21 06/08/21 fenofibrate nanocrystallized 145 mg PO EVERY OTHER DAY 03/21/21 06/08/21 hydrocodone-acetaminophen 1 tablet PO Q8H PRN 03/21/21 06/08/21 [id number]-[id number]-ast 1 cap PO DAILY 03/21/21 06/08/21 [MegaRed [place]-3 Krill Oil] levothyroxine 50 mcg PO DAILY 03/21/21 06/08/21 methotrexate sodium See Rx Instructions .ROUTE .COMPLEX 03/21/21 06/08/21 nortriptyline 10 mg PO TID 03/21/21 06/08/21 diltiazem HCl 360 mg PO QAM 06/08/21 06/08/21 Allergies Allergy/AdvReac Type Severity Reaction Status Date / Time adhesive tape Allergy Mild Unknown Verified 06/08/21 02:11 topiramate Allergy Mild Unknown Verified 06/08/21 02:11 adhesive Allergy Unknown SKIN Verified 06/08/21 02:11 SLOUGHS OFF morphine Allergy Unknown Unknown Verified 06/08/21 02:11 scopolamine Allergy Unknown SKIN Verified 06/08/21 02:11 SLOUGH OFF FROM PATCH Review of Systems Review of Systems: ROS unobtainable: Yes unobtainable due to medical condition and unobtainable due to mental status [facility] Past Medical History Medical History Acute CVA (cerebrovascular accident) (03/2021) Chronic anemia Chronic hyponatremia Depression Dyslipidemia Hypertension Insulin dependent diabetes mellitus On insulin pump. 1.25 units per hour with insulin to carb ratio 1 unit per 20 carb Macular degeneration Paroxysmal atrial fibrillation Rheumatoid arthritis Surgical History Surgical History History of appendectomy History of arthroscopy of both shoulders History of bilateral cataract extraction History of colonoscopy with polypectomy History of hysterectomy History of laparoscopic adjustable gastric banding History of orthopedic surgery Pins in feet and elbow. History of repair of hiatal hernia Status post open reduction with internal fixation of fracture (05/31/21) Left hip fracture Family History Family History Grandparent Family history of malignant neoplasm of ovary Other Carcinoma of colon Cerebrovascular accident Diabetes mellitus Family history of arthritis Family history of gout Hypertension Social History Social History Social History: The patient lives in [place] with her stepdaughter and son-in-law. Retired from doing secretarial work at numerous medical offices. She smoked a pack of cigarettes a day for 8 years and quit decades ago. She drinks perhaps 1 alcoholic regimen. No illicit substance use. She designates her stepdaughter, Sandhya Melara, as her surrogate decision-maker and she wishes to be a full code. Smoking status: Former smoker Tobacco type: cigarettes
[2021-07-16] MEDS: FUROSEMIDE INJ 40 MG/4 ML VIAL IV PUSH (18:52)
[2021-07-16 19:05] LABS: NT Pro B Type Natriuretic Pept 7750 pg/mL (5-100)
--- NOTE | 2021-07-16 20:35 | PM.IMHP ---
H&P: HPI History of Present Illness Date/Time: 07/16/21 20:35 Chief Complaint: Chest pain and shortness of breath Narrative: 76-year-old female with past medical history of CVA, paroxysmal atrial fibrillation, and diabetes mellitus who presented to the ER with chest pain and shortness of breath. When asked the patient why she had presented to the ER she give me a garbled answer. However when I would ask her questions about symptoms she could give me yes or no answers. She does report having a cough but cannot give me a duration of the cough. Cough is associated with chest discomfort. She told the ER staff that she felt like she was having a heart attack before she came to the ER but she could not communicate this information to me. The patient was only oriented times 1-2 at the time of my evaluation. She does have history of multiple episodes of metabolic encephalopathy with hospitalizations in the past. Her baseline mentation is usually alert orient x4. The patient usually can stand up with 1 person assist but has only been able to sit up with assistance for the last 2 days. She does not know if she has been having any fevers but does report feeling chilled. She is currently at a fpc where there are multiple COVID cases. On arrival to the ER the patient was markedly hypoxic and was requiring 6 L nasal cannula to maintain oxygen saturations. The patient does not have a history of supplemental oxygen requirement previously. The patient arrived with compression wraps in place on her lower extremities. Her lower extremities were actually less swollen the at the time of my previous evaluation. During my previous evaluation in June the patient also had marked anasarca of her arms. Her arms actually demonstrate no edema at this time. However, she does have multiple skin tears and bruises. When the patient arrived to the IMU patient's oxygen saturations had dropped. Patient required increasing oxygen requirements up to 15 L high-flow nasal cannula and a non-rebreather to maintain oxygen saturations. The patient had marked hyperglycemia in the ER. The patient did not arrived to the IMU until after midnight and did not receive her evening Lantus or sliding scale insulin. Nursing staff called me around 5:00 a.m. when the patient had several episodes of nonsustained V-tach. On my review of the telemetry the rhythm almost appeared to be torsades but was only lasting 5-10 seconds. Stat magnesium and electrolyte panel has been ordered. I asked for a stat Accu-Chek in the patient's glucoses greater than 500. The patient was uncooperative with care and was pulling off oxygen and was incontinent of urine. Subsequently an order was given for [place] catheter for monitoring strict I&O's and due to immobility. Lantus was ordered for now 10 units in 10 units of NovoLog. Electrolyte panel is still pending. Nursing staff called the patient's family to discuss code status given the patient's rapid increasing oxygen requirements. The patient's stepdaughter/POA felt that the patient would not want to be intubated or have cardiopulmonary resuscitation. Thusly, the patient code status changed to DNR/DNI. Review of Systems Review of Systems: ROS unobtainable: Yes unobtainable due to medical condition (Metabolic encephalopathy) and unobtainable due to mental status [facility] Past Medical History Medical History (Updated 07/16/21 @ 21:08 by Lynn Obregon DO) Acute CVA (cerebrovascular accident) (03/2021) Acute kidney injury 03/2021 and June 2021 Anasarca CHF (congestive heart failure) Echocardiogram 03/2021: Moderate concentric left ventricular wall thickness EF 50 55%, moderate left atrial enlargement, mild aortic valve sclerosis, mild mitral valve regurgitation, mild tricuspid valve regurgitation, diastolic dysfunction indeterminate Chronic anemia Chronic hyponatremia Depression DKA (diabetic ketoacidosis) (06/2021) Dyslipidemia Hypertension Insu
[2021-07-16 20:44] LABS: Troponin I < 0.012 ng/mL (0.000-0.034)
[2021-07-16 20:47] LABS: EDCOVIDSCREEN Positive (Negative)
[2021-07-16 21:34] LABS: D Dimer 3.02 ug/mL (<0.48)
[2021-07-16] MEDS: REMDESIVIR 200 MG/NS 250 ML 200 MG/250 ML BAG 250 MG IVPB (22:32)
[2021-07-17] VITALS (10 sets, daily range): BP systolic 94–127; BP diastolic 56–67; PULSE 86–117; RESP 20–22; TEMP 36.2–36.9; O2SAT 90–96; BMI 28.3; BMI 28.5
--- NOTE | 2021-07-17 01:31 | ADMGEN ---
This patient, Regine Mittal, was admitted to IMU Room 213-01. Patient/family oriented to hospital policies and general routines including ID bracelet, bed and alarms, visiting hours, pain management, procedures, bathroom and other care routines, personal items, smoking policy, room service/diet, and visiting hours. Information on how to activate the Rapid Response Team has been discussed. Patient/Family are encouraged to report perceived risks to care and to ask questions if they do not understand what they are told or what they should do.
[2021-07-17 01:51] LABS: Troponin I < 0.012 ng/mL (0.000-0.034)
--- NOTE | 2021-07-17 03:29 | PCRCNOTE ---
Pt was on 15L HFNC and experiencing O2 desaturation events into the mid 80s. Because pt was mouth breathing while asleep, NRB mask was placed on pt. NRB mask flow was set to 10LPM and kept NRB bag inflated. With the NRB in place, we were able to turn the HFNC down to 10LPM. When the patient is awake, we can try her on just the HFNC (without the NRB mask).
[2021-07-17 05:11] LABS: Glucose Point of Care > 500 mg/dl (65-105)
[2021-07-17 05:20] LABS: Basophils Percent Auto 0.4 % (0.2-1.2); Hematocrit 32.7 % (37.0-47.0); Hemoglobin 9.5 g/dL (12.0-15.0); Immature Granulocyte Absolute 0.03 K/mm3 (0.00-0.031); Immature Granulocyte Percent A 1.1 % (0-0.5); Immature Platelet Fraction Pct 4.4 % (0.9-11.2); Lymphocytes Percent Auto 7.2 % (18.3-44.2); Mean Corpuscular HGB Conc 29.1 g/dl (32-36); Mean Corpuscular Hemoglobin 28.8 pg (26-34); Mean Corpuscular Volume 99.1 fl (80-100); Monocytes Percent Auto 1.1 % (2.6-8.5); Neutrophils Absolute Auto 2.5 K/mm3 (1.3-6.7); Neutrophils Percent Auto 90.2 % (45.5-73.1); Nucleated Red Blood Cells Perc 0.7 % (0.0-0.2); Platelet Count Result 63 k/mm3 (150-375); White Blood Count 2.8 K/mm3 (4.5-10.0)
[2021-07-17 05:24] LABS: INR 1.4; Prothrombin Time 17.2 Seconds (11.1-14.7)
[2021-07-17 05:26] LABS: Magnesium 1.8 mg/dL (1.6-2.3)
[2021-07-17] MEDS: INSULIN GLARGINE (*BKC) 100 UNITS/ML 10 UNITS SUB-Q (05:26)
[2021-07-17] MEDS: INSULIN ASPART (*BKC) 100 UNITS/ML 10 UNITS SUB-Q (05:30)
[2021-07-17 05:49] LABS: Alanine Aminotransferase 21 U/L (4-35); Albumin Level 2.9 g/dL (3.5-5.1); Alkaline Phosphatase 125 U/L (38-126); Anion Gap 21 mmol/L (8-16); Aspartate Amino Transferase 37 U/L (14-36); Bilirubin,Total 1.2 mg/dL (0.2-1.3); Blood Urea Nitrogen 36 mg/dL (7-17); CRP 2.5 mg/dL (<1.0); Calcium 8.1 mg/dL (8.4-10.2); Carbon Dioxide 8 mmol/L (22-30); Chloride 104 mmol/L (98-107); Estimated CRCL calculation 38 ml/min; Estimated Glomerular Filt Rate 48; Glucose 614 mg/dL (65-110); Lactate Dehydrogenase 634 U/L (313-618); Potassium 5.1 mmol/L (3.4-5.0); Sodium 133 mmol/L (137-145)
[2021-07-17 05:55] LABS: Crenated RBC 1+ (NORMAL); Platelet Estimate Decreased (Adequate)
[2021-07-17 05:56] LABS: Macrocytosis 1+ (NORMAL); Ovalocytes 1+ (NORMAL)
[2021-07-17] MEDS: SODIUM CHLORIDE 0.9% IV 1,000 ML 999 ML IV CONT ×2 (06:26→11:43)
[2021-07-17] MEDS: MAGNESIUM SULF 2 GM/WATER 50ML 2 GM/50 ML BAG IVPB (06:26)
[2021-07-17] MEDS: INSULIN HUMAN REGULAR (*BKC) 100 UNITS/ML 10 UNITS IV PUSH (06:39)
[2021-07-17 07:47] LABS: Anion Gap 22 mmol/L (8-16); Blood Urea Nitrogen 36 mg/dL (7-17); Calcium 8.2 mg/dL (8.4-10.2); Carbon Dioxide 7 mmol/L (22-30); Chloride 104 mmol/L (98-107); Estimated CRCL calculation 35 ml/min; Estimated Glomerular Filt Rate 44; Glucose 613 mg/dL (65-110); Sodium 133 mmol/L (137-145)
[2021-07-17] MEDS: FUROSEMIDE INJ 40 MG/4 ML VIAL 20 MG IV PUSH (08:26)
[2021-07-17 08:42] LABS: Glucose Point of Care 476 mg/dl (65-105)
[2021-07-17] MEDS: INSULIN ASPART (*BKC) 100 UNITS/ML 6 UNITS SUB-Q (08:53)
[2021-07-17 09:31] LABS: Beta-Hydroxybutyrate/Acetoacetate 7.93 mmol/L (0.02-0.27)
--- NOTE | 2021-07-17 10:52 | PM.IMPN ---
Progress Note: A&P Assessment and Plan (1) Acute respiratory failure with hypoxia: Code(s): J96.01 - Acute respiratory failure with hypoxia Status: Acute Assessment and Plan: Patient brought into the ED from the [facility] for SOB and cough. She had a positive rapid COVID test on 06/13/21. Patient noted to be in respiratory failure. ABG 7.33/32/59on 5L. CXR showing findings consistent with CHF. BNP 7750 (which is lower then last admission). Rapid COVID test positive again here. She was treated with lasix IV. She was started on Decadron and Remdesivir. Patient requiring nasal cannula and non-rebreather. She needs IV fluids for DKA but she is obviously fluid overloaded. Will continue supplemental O2 and wean as needed. Will stop IV fluids and check BMP to see if her DKA is resolving. Continue IV Lasix for now. Repeat COVID as PCR Discussed with family. All questions answered. Patient is DNR confirmed by family. 40 minutes spent of critical care. CTA chest returned and spoke with radiology. Left lung collapse associated with debris in the left main stem and smaller airways as well as from the effusion. Also with PE. Spoke with dtr again and options discussed. She spoke with her family and when we spoke again, she decided to keep the patient comfortable. Hospice consult. Morphine drip (aware of the allergy listed but discussed with dtr who is agreeable to use morphine). (2) DKA, type 1: Qualifiers: Diabetes mellitus complication detail: with coma Qualified Code(s): E10.11 - Type 1 diabetes mellitus with ketoacidosis with coma Code(s): E10.10 - Type 1 diabetes mellitus with ketoacidosis without coma Status: Acute Assessment and Plan: Patient presents with glucose 370 with bicarb 18 and normal gap. pH normal. She was started on steroids. Bicarb dropped to 7 and AG now 22; glucose to 614. IV fluids started and IV insulin then SQ insulin given. Continue aggressive treatment to improve gluycemic control and acidosis. Stop steroids if PCR negative. (3) Pneumonia due to COVID-19 virus: Code(s): U07.1 - COVID-19; J12.82 - Pneumonia due to coronavirus disease 2019 Status: Acute Assessment and Plan: Rapid COVID positive on 06/13 and again here of 07/16 but PCR negative on 06/09 and 06/14. Will verify with PCR. Continue supportive care. Patient DNR. Contineu Remdesivir and Dexamethasone for now. Consider baracitinib if PCR positive. Wean O2 as tolerated (4) Metabolic encephalopathy: Code(s): G93.41 - Metabolic encephalopathy Status: Acute Assessment and Plan: Patient is obtunded. Probably related to above. Unable to obtain CT brain given the severity of her condition. CT brain when her O2 requirement improves. Supportive care. Treatment as above (5) Diabetes mellitus with hyperglycemia, with long-term current use of insulin: Qualifiers: Diabetes mellitus type: type 2 Qualified Code(s): E11.65 - Type 2 diabetes mellitus with hyperglycemia; Z79.4 - intermediate frame tender (current) use of insulin Code(s): E11.65 - Type 2 diabetes mellitus with hyperglycemia; Z79.4 - intermediate (current) use of insulin Status: Acute Assessment and Plan: A1c 7.6 in June. The patient's blood glucose was reviewed on 07/17 Continue AccuCheks covering with sliding scale. Hypoglycemia protocol available as needed. As above. (6) CHF (congestive heart failure): Code(s): I50.9 - Heart failure, unspecified Status: Acute Assessment and Plan: Echo showing EF 50-55% with severe (LANE 0.8mmHg) and diastolic dysfunction. She also has mitral regurg and moderate pulmonary HTN. Currently on IV fluids for the DKA but stop once AG closes. Contieu IV Lasix and monitor renal function closely since she may be pre-load dependent with the and pulmonary HTN. (7) Paroxysmal atrial fibrillation with RVR: Code(s): I48.0 - Paroxysmal atrial fibrillation
[2021-07-17] MEDS: LIDOCAINE HCL 1% PF INJ 5 ML VIAL INFILTRATE (11:15)
[2021-07-17 12:20] LABS: Glucose Point of Care 402 mg/dl (65-105)
[2021-07-17] MEDS: INSULIN ASPART (*BKC) 100 UNITS/ML 8 UNITS SUB-Q (12:43)
[2021-07-17 13:10] LABS: Anion Gap 14 mmol/L (8-16); Blood Urea Nitrogen 37 mg/dL (7-17); Calcium 7.9 mg/dL (8.4-10.2); Carbon Dioxide 16 mmol/L (22-30); Chloride 107 mmol/L (98-107); Estimated CRCL calculation 35 ml/min; Estimated Glomerular Filt Rate 44; Glucose 272 mg/dL (65-110); Potassium 3.9 mmol/L (3.4-5.0); Sodium 137 mmol/L (137-145)
[2021-07-17] MEDS: CENTRAL LINE FLUSH 10 ML IV PUSH (13:28)
[2021-07-17 14:26] LABS: Glucose Point of Care 299 mg/dl (65-105)
[2021-07-17 15:16] LABS: Anion Gap 16 mmol/L (8-16); Blood Urea Nitrogen 35 mg/dL (7-17); Calcium 7.8 mg/dL (8.4-10.2); Carbon Dioxide 15 mmol/L (22-30); Chloride 101 mmol/L (98-107); Estimated CRCL calculation 38 ml/min; Estimated Glomerular Filt Rate 48; Glucose 186 mg/dL (65-110); Potassium 3.9 mmol/L (3.4-5.0); Sodium 132 mmol/L (137-145)
[2021-07-17] MEDS: LORazepam INJ (*CRX) 2 MG/ML VIAL 1 MG IV PUSH (15:43)
[2021-07-17] MEDS: MORPHINE SULFATE INJ (*CRX) 50 MG in SODIUM CHLORIDE 0.9% IV 95 ML IV CONT (15:44)
[2021-07-17 21:34] LABS: SARS-CoV-2 RNA PCR Negative
[2021-07-18] VITALS: BP 139/71; PULSE 130; RESP 10; TEMP 36.1; O2SAT 87
--- NOTE | 2021-07-18 03:06 | PC.NURSE ---
This patient, Regine Mittal, was received from [imu ] on 07/18/21 at 0254. Patient/family oriented to unit policies and routines
--- NOTE | 2021-07-18 11:14 | PM.IMPN ---
Progress Note: A&P Assessment and Plan (1) Acute respiratory failure with hypoxia: Code(s): J96.01 - Acute respiratory failure with hypoxia Status: Acute (2) DKA, type 1: Qualifiers: Diabetes mellitus complication detail: with coma Qualified Code(s): E10.11 - Type 1 diabetes mellitus with ketoacidosis with coma Code(s): E10.10 - Type 1 diabetes mellitus with ketoacidosis without coma Status: Acute (3) Pneumonia due to COVID-19 virus: Code(s): U07.1 - COVID-19; J12.82 - Pneumonia due to coronavirus disease 2018 Status: Acute (4) Metabolic encephalopathy: Code(s): G93.41 - Metabolic encephalopathy Status: Acute (5) Diabetes mellitus with hyperglycemia, with long-term current use of insulin: Qualifiers: Diabetes mellitus type: type 2 Qualified Code(s): E11.65 - Type 2 diabetes mellitus with hyperglycemia; Z79.4 - terminal superintendent (current) use of insulin Code(s): E11.65 - Type 2 diabetes mellitus with hyperglycemia; Z79.4 - terminal superintendent (current) use of insulin Status: Acute (6) CHF (congestive heart failure): Code(s): I50.9 - Heart failure, unspecified Status: Acute (7) Paroxysmal atrial fibrillation with RVR: Code(s): I48.0 - Paroxysmal atrial fibrillation Status: Acute Additional Plan Patient mildly restless. Will give extra morphine and Ativan. Continue comfort measures. Subjective Date/time seen: 07/18/21 11:14 Interval history: 76yo female with hx of CVA, pAFib and DM here for chest pain and SOB. Patient's condition deteriorated yesterday and family decided to keep her comfortable. Hospice consult and comfort care orders started. Patient is unresponsive and unable to provide hx. Review of Systems Review of Systems: ROS unobtainable: Yes unobtainable due to mental status Exam Narrative: AF 97.0 139/71 130 10 87% Gen - mildly restless Chest - coarse BS CV - tachycardic Abd - Soft - [place] secured Ext - toes are cyanotic Neuro - sedated Skin - cool and dry Objective Data Vital Signs Vital Signs: Vital Signs - 24 hr 07/17/21 12:00 07/17/21 14:00 07/18/21 00:00 Temperature 98.5 F 97.0 F L Pulse Rate 103 H 117 H 130 H Respiratory Rate 20 10 L Blood Pressure 124/56 L 139/71 Pulse Oximetry 96 87 L Intake/Output Intake/Output: Intake & Output 07/15/21 07/16/21 07/17/21 07/18/21 23:59 23:59 23:59 23:59 Intake Total 250 Balance 250 Meds/Results Medications: Active Medications Generic Name Dose Route Start Last Admin Trade Name Freq PRN Reason Stop Dose Admin Acetaminophen 650 mg 07/17/21 15:06 Acetaminophen 650 Mg Suppository RECTAL Q6H PRN Mild Pain (1-3) or Fever Morphine Sulfate 50 mg/ Sodium 100 mls @ 4 mls/hr 07/17/21 15:10 07/17/21 15:44 Chloride IV CONT 2 mg/hr .Q24H TERESA 4 mls/hr Administration 2 MG/HR Lorazepam 1 mg 07/17/21 15:06 07/17/21 15:43 Lorazepam Inj (*Crx) 2 Mg/Ml Vial IV PUSH 1 mg Q2H PRN Administration Anxiety or air hunger Morphine Sulfate 2 mg 07/17/21 15:06 Morphine Sulfate (*Crx) 2 Mg/Ml Inj IV PUSH Q2H PRN Pain Rated 7-10 Radiology Results: ITS Impressions Chest X-Ray 07/16/21 16:23 IMPRESSION: 1. Findings consistent with CHF exacerbation. 2. Moderate left, small right pleural effusion. 3. Multisegmental left lower lobe atelectasis. 4. Edema and/or pneumonia likely. Abdomen X-Ray 07/17/21 12:16 IMPRESSION: 1. Right mid thigh approach PICC line in expected position. 2. Moderate colonic stool and gas. Chest CTA 07/17/21 13:14 IMPRESSION: 1. Positive for segmental lingular pulmonary embolism. 2. Cardiomegaly. Dilated pulmonary arteries. 3. Completely collapsed left lung likely from endobronchial debris and also the moderate to large pleural effusion. 4. Moderate right pleural effusion with adjacent right lower lob
[2021-07-18] MEDS: LORazepam INJ (*CRX) 2 MG/ML VIAL 1 MG IV PUSH (11:43)
[2021-07-18] MEDS: MORPHINE SULFATE (*CRX) 2 MG/ML INJ IV PUSH (11:43)
--- NOTE | 2021-07-18 14:07 | PM.DDS ---
Discharge Summary Date and Time Date of : 07/18/21 Time of : 14:00 Provider Pronounced By: Yasmine Spears RN Probable Cause of Probable Cause of : Acute respiratory failure from PNA. Summary Hospital Course: [facility]. Rapid COVID positive on 06/13 and again here of 07/16 but PCR negative on 06/09 and 06/14. Repeat COVID PCR was negative. COVID PNA RULED OUT. Patient was DNR. Patient noted to be in respiratory failure. ABG 7.33/32/59on 5L. CXR showing findings consistent with CHF. BNP 7750 (which is lower then last admission). She was treated with lasix IV. She was started on Decadron and Remdesivir. Patient requiring nasal cannula and non-rebreather. She needed IV fluids for DKA but she is obviously fluid overloaded. CTA chest returned and spoke with radiology. Left lung collapse associated with debris in the left main stem and smaller airways as well as from the effusion. She also with PE. Spoke with dtr again and options discussed. She spoke with her family and when we spoke again, the daughter decided to keep the patient comfortable. Patient was transitioned to comfort measures and she on 07/18/21. Notified the daughter and offered condolences
--- NOTE | 2021-07-18 15:00 | PC.NURSE ---
Called Sandhya Melara (step-daughter) about choice of Home. She is undecided at this time. I gave her the nurses station direct phone number. She stated she would call once she has chosen a Home.
--- NOTE | 2021-07-21 11:24 | PC.NURSE ---
Sandhya Melara (step-daughter) called @ 1101 questioning if the patient was picked up because she stated that the home did not have the body. She stated that she called 07/19/21 and gave someone here the name of the chosen home, [facility] in [place]. I called . Security called back confirming that the patient had not been picked up yet by the home. I called [facility] @ 1119. They stated that someone would come today to get the body. I then called Sandhya saleh @ 1122.
== END 2021-07-18 14:00 | disposition expired | DRG 291 ==
LOC: ANHED 16:56 → ANHIMU 22:12 → ANH3MEDSUR 07-18 04:16
PROVIDERS: Emergency Medicine; Internal Medicine; Admitting Provider Internal Medicine; Emergency Provider Emergency Medicine; Visit Provider Internal Medicine
DX: I50.31 Acute diastolic (congestive) heart failure (principal); E10.10 Type 1 diabetes mellitus with ketoacidosis without coma; G93.41 Metabolic encephalopathy; J96.01 Acute respiratory failure with hypoxia; I26.99 Other pulmonary embolism without acute cor pulmonale; J98.19 Other pulmonary collapse; I47.1 Supraventricular tachycardia; I48.0 Paroxysmal atrial fibrillation; Z20.822 Contact with and (suspected) exposure to COVID-19; H35.30 Unspecified macular degeneration; E78.5 Hyperlipidemia, unspecified; D64.9 Anemia, unspecified; F32.A Depression, unspecified; M06.9 Rheumatoid arthritis, unspecified; Z66 Do not resuscitate; D69.6 Thrombocytopenia, unspecified; D72.819 Decreased white blood cell count, unspecified; Z79.4 Long term (current) use of insulin; Z86.73 Personal history of transient ischemic attack (TIA), and cerebral infarction without residual deficits; Z98.42 Cataract extraction status, left eye; Z98.41 Cataract extraction status, right eye; Z90.49 Acquired absence of other specified parts of digestive tract; Z90.710 Acquired absence of both cervix and uterus; Z87.891 Personal history of nicotine dependence; Z79.82 Long term (current) use of aspirin
CPT/HCPCS: 36415; 36569; 36600; 71045; 71275; 80048; 80053; 82010; 82728; 82805; 82948; 83615; 83690; 83735; 83880; 84484; 85025; 85055; 85380; 85610; 85730; 86140; 87426; 93005; 96374; 99285; C1751; C9803; J1815; J1940; J2060; J2270; J3475; J7030; Q9967; U0003; U0005